=== PATIENT | male | born 1950 | race Caucasian/White ===

== ENCOUNTER 2022-08-09 08:21 | Inpatient (IN) | payer MEDICARE, SELFPAY ==
[2022-08-09] VITALS (50 sets, daily range): BP systolic 65–164; BP diastolic 53–114; PULSE 92–142; RESP 18–34; TEMP 36–37.8; O2SAT 93–100; BMI 27.6
--- NOTE | 2022-08-09 | ECHO_ITS ---
Patient Info Name: Eduardo Bear Age: 72 years : 1950 Gender: Male Ht: 72 in Wt: 180 lbs BSA: 2.04 m2 HR: 120 bpm BP: 130 / 68 mmHg Heart Rhythm: Sinus Rhythm Technical Quality: Poor Exam Date: 08/09/2022 3:20 PM Exam Location: [facility] Pulmonary Exam Room: ICU6 Patient Status: Inpatient Admit Date: 08/09/2022 Staff Ordering Physician: Fady Jackson MD Bottom Precipitator Operator: Marli Grant RDCS Attending Provider: Radha Crowe MD Referring Physician: Manuel ECHEVARRIA; Exam Type: CA echo dop color flow w con Study Info Indications - CHEST PAIN Complete two-dimensional, color flow and Doppler transthoracic echocardiogram is performed with contrast to opacify the left ventricle and to improve the deliniation of the left ventricle endocardial borders. Contrast/Agitated Saline Contrast/Ag. Saline: Definity Amount: 2.00 ml Administered By: Marli Grant [facility] Existing IV Access: Yes IV Access Condition: patent with no signs of infiltration Reason for Poor Study: patient body habitus Summary 1. Technically challenging examination in this intubated patient. 2. Definity contrast injected to improve visualization. 3. Hyperdynamic appearing left ventricular systolic function with grade 1 diastolic noncompliance. 4. No significant valvular dysfunction identified. Left Ventricle Left ventricular chamber dimension is normal. Left ventricular systolic function is hyperdynamic, estimated at >70%. The left ventricular diastolic function is grade I diastolic dysfunction. Right Ventricle Right ventricular chamber dimension is normal. Left Atria Left atrial chamber dimension is normal. Right Atria Right atrial chamber dimension is not well visualized. Aortic Valve The aortic valve is normal. Pulmonic Valve The pulmonic valve is not well visualized. Mitral Valve The mitral valve has normal leaflets. There is no mitral valve regurgitation. Tricuspid Valve The tricuspid valve leaflets are not well visualized. Pericardium/Pleural The pericardium appears normal. Aorta The aortic root size at the sinus of Valsalva is normal. Pulmonic Valve Name Value Normal RVOT Doppler RVOT Peak Gradient 4 mmHg PV Doppler PV Peak Gradient 7 mmHg Mitral Valve Name Value Normal MV Doppler MV Decel Hernando 247.24 cm/s2 MV PHT 0 s MV Area (PHT) 4.74 cm2 4.00-5.00 MV Diastolic Function MV E Peak Velocity 39.53 cm/s MV A Peak Velocity 60.78 cm/s MV E/A 0.65 MV Decel Time 0 s Tricuspid Valve Name Value
--- NOTE | ~2022-08-09 | XR_ITS ---
EXAMINATION: XR chest 1V portable DATE: 08/15/2022 22:15 INDICATION: Aspiration. TECHNIQUE: A single frontal view of the chest was obtained on 2 radiographs. COMPARISON: Chest single view 08/14/2022 FINDINGS: There are lucencies in the lungs, consistent with emphysema. No pleural effusion or pneumot horax. The heart size is normal. There are old healed left rib fractures. The endotracheal tube tip i s 6.5 cm above the tessa. The nasogastric tube tip is beyond the inferior margin of the radiograph, but at least to the stomach. IMPRESSION: 1. Emphysema. Reviewed, dictated and finalized at location E. IMPRESSION: 1. Emphysema.
--- NOTE | ~2022-08-09 | XR_ITS ---
Portable chest x-ray Comparison: 08/18/2022 Clinical History: Respiratory failure Findings: Endotracheal tube and NG tube are in satisfactory positions. There is COPD pattern. Mild i nterstitial prominence is similar to prior exam. Cardiomediastinal silhouette is stable. Bones and s oft tissues are unremarkable. Impression: Stable COPD and probable associated mild residual prominence. Correlate for mild pulmonary edema or i nfection. Support tubes, as above. Reviewed, dictated and finalized at location M. Impression: Stable COPD and probable associated mild residual prominence. Correlate for mil d pulmonary edema or infection. Support tubes, as above.
--- NOTE | ~2022-08-09 | XR_ITS ---
XR chest 1V portable 08/18/2022 05:43 Indication: Respiratory failure. Procedure: AP portable chest Comparison: Comparison to multiple prior studies sequentially, with oldest reviewed study dated 08/16. Findings: Endotracheal tube tip approximately 5 cm above the tessa. NG tube in the stomach. Heart si ze normal. Mild interstitial edema. The lungs are hyperinflated which is consistent with, but not milton gnostic of chronic obstructive pulmonary disease. No pneumothorax. Impression: 1: Mild interstitial edema. Reviewed, dictated and finalized at location A. Impression: 1: Mild interstitial edema.
--- NOTE | ~2022-08-09 | XR_ITS ---
EXAMINATION: XR chest ET placement DATE: 08/09/2022 15:16 INDICATION: Intubation. TECHNIQUE: A single frontal view of the chest was obtained. COMPARISON: Chest single view 08/09/2022 FINDINGS: There are lucencies in the lungs, consistent with emphysema. A calcified right lung nodule is consistent with old granulomatous disease. No pleural effusion or pneumothorax. The heart size is normal. There are multiple old healed left rib fractures. The endotracheal tube tip is 7.3 cm is abov e the tessa. The nasogastric tube tip is beyond the inferior margin of the radiograph, but at least to the stomach. IMPRESSION: 1. Emphysema. Reviewed, dictated and finalized at location A. IMPRESSION: 1. Emphysema.
--- NOTE | ~2022-08-09 | XR_ITS ---
Portable chest x-ray Comparison: 08/19/2022 Clinical History: Respiratory failure Findings: Endotracheal tube and NG tube remain in place. There is probable COPD. No consolidation or pleural effusion. Cardiomediastinal silhouette is stable. Bones and soft tissues are unremarkable. Impression: COPD. Support tubes, as above. Reviewed, dictated and finalized at location . Impression: COPD. Support tubes, as above.
--- NOTE | ~2022-08-09 | XR_ITS ---
Portable chest x-ray Comparison: 08/22/2022 Clinical History: Respiratory failure Findings: Endotracheal tube and left-sided PICC line are in satisfactory positions. COPD pattern of the lungs present. Cardiomediastinal silhouette is stable. Bones and soft tissues are unremarkable. Impression: COPD. Support tubes, as above. Reviewed, dictated and finalized at location . Impression: COPD. Support tubes, as above.
--- NOTE | ~2022-08-09 | XR_ITS ---
Portable chest x-ray Comparison: 08/13/2022 Clinical History: Respiratory failure Findings: Endotracheal tube and NG tube remain in place. COPD pattern of the lungs present. No conso lidation or pleural effusion. Cardiomediastinal silhouette is stable. Bones and soft tissues are unr emarkable. Impression: COPD. Support tubes, as above. Reviewed, dictated and finalized at location . Impression: COPD. Support tubes, as above.
--- NOTE | ~2022-08-09 | XR_ITS ---
EXAMINATION: XR chest 1V portable DATE: 08/11/2022 06:07 INDICATION: Intubated. TECHNIQUE: A single frontal view of the chest was obtained. COMPARISON: Chest single view 08/10/2022 FINDINGS: There are lucencies in the lungs, consistent with emphysema. A calcified right lung nodule and calcified right hilar lymph nodes are consistent with old granulomatous disease. No pleural effus ion or pneumothorax. The heart size is normal. The endotracheal tube tip is 8.7 cm above the tessa. Nasogastric tube tip is in the stomach. There are old healed left rib fractures. IMPRESSION: 1. Emphysema. Reviewed, dictated and finalized at location A. IMPRESSION: 1. Emphysema.
--- NOTE | ~2022-08-09 | XR_ITS ---
EXAMINATION: XR chest 1V portable Exam Date/Time: 08/14/2022 20:25 CDT HISTORY: Pneumothorax Comparison: 08/14/2022 at 5:40 AM. RESULT: Lines, tubes, and devices: Subdiaphragmatic nasogastric tube. Endotracheal tube terminates 5.3 cm ab ove the tessa. Lungs and pleura: Senescent/emphysematous changes. Otherwise clear. No pneumothorax. Cardiomediastinal silhouette: Stable. Other: No acute osseous or upper abdominal finding. IMPRESSION: Stable endotracheal and nasogastric tubes. No acute pulmonary process. Reviewed, dictated and finalized at location K.
--- NOTE | ~2022-08-09 | XR_ITS ---
Portable chest x-ray Comparison: 08/12/2022 Clinical History: Tube placement Findings: Endotracheal tube and NG tube are in satisfactory positions. COPD pattern of the lungs pre sent. No focal consolidation or pleural effusion. Cardiomediastinal silhouette is stable. Bones and soft tissues are unremarkable. Impression: COPD. Support tubes, as above. Reviewed, dictated and finalized at location . Impression: COPD. Support tubes, as above.
--- NOTE | ~2022-08-09 | XR_ITS ---
EXAMINATION: XR chest 1V portable INDICATION: Respiratory failure TECHNIQUE: Portable AP chest at 0804 hours COMPARISON: 08/23/2022 FINDINGS: The endotracheal tube has been removed and a tracheostomy has been inserted in expected pos ition. A left upper extremity PICC ends with its tip in the distal superior vena cava. No pleural eff usion or pneumothorax. The cardiomediastinal silhouette is stable. The lungs are hyperinflated but fr ee of acute opacities. A healed left rib fractures noted. IMPRESSION: 1. No acute cardiopulmonary abnormality. Endotracheal tube replaced with tracheostomy. Reviewed, dictated and finalized at location A. IMPRESSION: 1. No acute cardiopulmonary abnormality. Endotracheal tube replaced with trache ostomy.
--- NOTE | ~2022-08-09 | XR_ITS ---
XR chest 1V portable 08/17/2022 05:57 Indication: Respiratory failure Procedure: AP portable chest Comparison: Comparison to multiple prior studies sequentially, with oldest reviewed study dated 08/14. Findings: Endotracheal tube tip 6.1 cm above the tessa. NG tube passes into the stomach. Heart size normal. No focal air space disease, pulmonary edema, pleural effusion or suspected pneumothorax. The lungs are hyperinflated which is consistent with, but not diagnostic of chronic obstructive pulmonary disease. Impression: 1: No acute cardiopulmonary disease. Reviewed, dictated and finalized at location A. Impression: 1: No acute cardiopulmonary disease.
--- NOTE | ~2022-08-09 | XR_ITS ---
Portable chest x-ray Comparison: 08/20/2022 Clinical History: Respiratory failure Findings: Endotracheal tube, NG tube, and left-sided PICC line are in satisfactory positions. Possib le COPD. No focal consolidation or pleural effusion. Cardiomediastinal silhouette is stable. Bones a nd soft tissues are unremarkable. Impression: Support tubes, as above. COPD. Reviewed, dictated and finalized at location . Impression: Support tubes, as above. COPD.
--- NOTE | ~2022-08-09 | XR_ITS ---
EXAMINATION: XR chest ET placement DATE: 08/16/2022 16:47 INDICATION: Intubation. TECHNIQUE: A single frontal view of the chest was obtained. COMPARISON: Chest single view at 5:16 AM FINDINGS: There are lucencies in the lungs, consistent with emphysema. A calcified right lung nodule is consistent with old granulomatous disease. No pleural effusion or pneumothorax. The heart size is normal. The endotracheal tube tip is 6.0 cm above the tessa. The nasogastric tube tip is beyond the inferior margin of the radiograph, but at least to the stomach. There are old healed left rib fractur es. IMPRESSION: 1. Emphysema. Reviewed, dictated and finalized at location E. IMPRESSION: 1. Emphysema.
--- NOTE | ~2022-08-09 | XR_ITS ---
EXAMINATION: XR abdomen NG/feed tube rechec DATE: 08/15/2022 22:15 INDICATION: Nasogastric tube placement. TECHNIQUE: A semiupright view of the abdomen was obtained. COMPARISON: None. FINDINGS: The lower abdomen is excluded. There are no dilated loops of bowel. The nasogastric tube ti p is in the stomach. There are old healed left rib fractures. There are surgical clips in the abdomen . IMPRESSION: 1. Nasogastric tube tip in the stomach. Reviewed, dictated and finalized at location E.
--- NOTE | ~2022-08-09 | XR_ITS ---
Portable chest x-ray Comparison: 08/15/2022 Clinical History: Respiratory failure Findings: Endotracheal tube and NG tube are in place. COPD pattern of the lungs present. Cardiomedi astinal silhouette is stable. Bones and soft tissues are unremarkable. Impression: COPD. Support tubes, as above. Reviewed, dictated and finalized at location . Impression: COPD. Support tubes, as above.
--- NOTE | ~2022-08-09 | XR_ITS ---
EXAMINATION: XR chest 1V portable Exam Date/Time: 08/12/2022 18:52 CDT HISTORY: Desaturating, accessory muscle use Comparison: Same date at 5:12 AM. RESULT: Lines, tubes, and devices: Endotracheal tube terminates 7 cm above the tessa. Subdiaphragmatic NG t ube. Lungs and pleura: Senescent and emphysematous change. Mild bilateral costophrenic angle blunting. Cardiomediastinal silhouette: Stable. Other: No acute osseous or upper abdominal finding. IMPRESSION: High positioned endotracheal tube, consider advancing 3 cm. Subdiaphragmatic NG tube. Small bilateral effusions versus chronic pleural scarring. Reviewed, dictated and finalized at location K.
--- NOTE | ~2022-08-09 | CT_ITS ---
Non-contrast Head CT History: Abnormal body movements Technique: Axial non-contrast imaging of the brain was performed. Dose reduction technique was used on this scan by utilizing automated exposure control and iterative reconstruction technique. The dose -length product (DLP) was 756.67 mGy-cm. Findings: There is no evidence of intracranial hemorrhage, mass lesion, or acute infarct. Brain par enchyma appears normal. The ventricles and subarachnoid spaces are normal in size. The calvarium ap pears normal. Mild sinus disease is present.. Impression: No intracranial abnormality seen. Mild sinus disease. Reviewed, dictated and finalized at location . Impression: No intracranial abnormality seen. Mild sinus disease.
--- NOTE | ~2022-08-09 | XR_ITS ---
EXAMINATION: XR abdomen obstructive series DATE: 08/11/2022 08:37 INDICATION: Abdominal distention. TECHNIQUE: Upright and supine views of the abdomen on 3 radiographs were obtained. COMPARISON: Abdomen radiograph 08/09/2022 FINDINGS: There are no dilated loops of bowel. There is a large volume of stool in the colon. No free intraperitoneal gas. Catheters overlie the pelvis. There is a right groin central venous catheter. T here are surgical clips in left abdomen. The nasogastric tube tip is in the stomach. There are old he aled left rib fractures. IMPRESSION: 1. Nonobstructive bowel gas pattern. Reviewed, dictated and finalized at location A.
--- NOTE | ~2022-08-09 | XR_ITS ---
EXAMINATION: XR chest 1V portable DATE: 08/10/2022 14:51 INDICATION: Intubated. TECHNIQUE: A single frontal view of the chest was obtained on 2 radiographs. COMPARISON: Chest single view 08/10/2022 at 5:11 AM FINDINGS: There are lucencies in the lungs, consistent with emphysema. No pleural effusion or pneumot horax. The heart size is normal. There are old healed left rib fractures. The endotracheal tube tip i s 6.2 cm above the tessa. The nasogastric tube tip is beyond the inferior margin of the radiograph, but at least to the stomach. IMPRESSION: 1. Emphysema. Reviewed, dictated and finalized at location A. IMPRESSION: 1. Emphysema.
--- NOTE | ~2022-08-09 | XR_ITS ---
EXAMINATION: XR abdomen NG/feed tube insert DATE: 08/09/2022 15:16 INDICATION: Nasogastric tube placement. TECHNIQUE: A single view of the abdomen was obtained. COMPARISON: None. FINDINGS: The lower abdomen and right lateral aspect of the abdomen are excluded. There are no dilate d loops of bowel. There are surgical clips in the abdomen. The nasogastric tube tip is in the stomach . IMPRESSION: 1. Nasogastric tube tip in the stomach. Reviewed, dictated and finalized at location A.
--- NOTE | ~2022-08-09 | XR_ITS ---
EXAMINATION: XR chest 1V portable DATE: 08/10/2022 07:16 INDICATION: Acute on chronic respiratory failure. TECHNIQUE: A single frontal view of the chest was obtained. COMPARISON: Chest single view 08/09/2022 FINDINGS: There are lucencies in the lungs, consistent with emphysema. No pneumonia, pleural effusion , or pneumothorax. The heart size is normal. The endotracheal tube tip is 7.0 cm above the tessa. Th e nasogastric tube tip is beyond the inferior margin of the radiograph, but at least to the stomach. IMPRESSION: 1. Emphysema. Reviewed, dictated and finalized at location A. IMPRESSION: 1. Emphysema.
--- NOTE | ~2022-08-09 | XR_ITS ---
Portable chest x-ray Comparison: None Clinical History: Shortness of breath Findings: Mild diffuse interstitial prominence the lungs is noted. No focal consolidation, pleural e ffusion, or pneumothorax. Cardiomediastinal silhouette is unremarkable. Degenerative change of the r ight glenohumeral joint noted. Impression: Mild diffuse interstitial prominence. This is probably most likely related to COPD, but other chronic interstitial disease or interstitial edema/infection are potential alternative considerations. Corre late clinically. Reviewed, dictated and finalized at location . Impression: Mild diffuse interstitial prominence. This is probably most likely related to C OPD, but other chronic interstitial disease or interstitial edema/infection are potential alternative considerations. Correlate clinically.
--- NOTE | ~2022-08-09 | XR_ITS ---
Portable chest x-ray Comparison: 08/21/2022 Clinical History: Respiratory failure Findings: Endotracheal tube, NG tube, and left-sided PICC line are in satisfactory positions. COPD p attern of the lungs present. No consolidation or pleural effusion. Cardiomediastinal silhouette is s table. Bones and soft tissues are unremarkable. Impression: COPD. Support tubes, as above. Reviewed, dictated and finalized at location . Impression: COPD. Support tubes, as above.
--- NOTE | ~2022-08-09 | XR_ITS ---
EXAMINATION: XR chest 1V portable DATE: 08/12/2022 05:57 INDICATION: Intubated. TECHNIQUE: A single frontal view of the chest was obtained. COMPARISON: Chest single view 08/11/2022 FINDINGS: There are lucencies in the lungs, consistent with emphysema. No pleural effusion or pneumot horax. The heart size is normal. There are old healed left rib fractures. The endotracheal tube tip i s 6.3 cm above the tessa. The nasogastric tube tip is beyond the inferior margin of the radiograph, but at least to the stomach. IMPRESSION: 1. Emphysema. Reviewed, dictated and finalized at location A. IMPRESSION: 1. Emphysema.
--- NOTE | 2022-08-09 08:38 | ECG_ITS ---
Measurements Intervals [place] Rate: 144 P: NV: 0 QRS: 75 QRSD: 80 T: 79 QT: 265 QTc: 411 Interpretive Statements SINUS OR ECTOPIC ATRIAL TACHYCARDIA ATRIAL PREMATURE COMPLEX BASELINE ARTIFACT- I, II, III, AVR, AVL, AVF, V1-V6 ABNORMAL ECG NO PREVIOUS ECG AVAILABLE FOR COMPARISON Electronically Signed On 08-09-2022 10:05:14 CDT by Rogelio Valdivia D.O.
[2022-08-09 09:26] LABS: Glucose Point of Care 141 mg/dl (65-105)
--- NOTE | 2022-08-09 09:42 | ADMGEN ---
This patient, Eduardo Bear, was admitted to 3 [facility] Surg Room 326-01. Patient/family oriented to hospital policies and general routines including ID bracelet, bed and alarms, visiting hours, pain management, procedures, bathroom and other care routines, personal items, smoking policy, room service/diet, and visiting hours. Information on how to activate the Rapid Response Team has been discussed. Patient/Family are encouraged to report perceived risks to care and to ask questions if they do not understand what they are told or what they should do.
[2022-08-09 09:44] LABS: Hematocrit 35.2 % (42.0-52.0); Hemoglobin 9.7 g/dL (14.0-18.0); Mean Corpuscular HGB Conc 27.6 g/dl (32-36); Mean Corpuscular Hemoglobin 21.3 pg (26-34); Mean Corpuscular Volume 77.4 fl (80-100); Mean Platelet Volume 8.1 fl (7.4-10.4); Platelet Count Result 445 k/mm3 (150-375); Red Blood Count 4.55 M/mm3 (4.6-6.20); Red Cell Distribution Width 18.6 % (11.5-14.5); White Blood Count 14.4 K/mm3 (4.5-10.0)
[2022-08-09 09:57] LABS: Alveolar/Arterial O2 Gradient 103.5 mmHg; Base Excess ABG 5.5 mEq/l (+/-2.0); Fractional Inspired Oxygen 36 %; Oxygen Content ABG 13.3 %vol (16.0-22.0); Oxygen Saturation ABG 90.2 % (95.0-100.0); Oxyhemoglobin 89.8 % THb (90.0-100.0); PO2 ABG 67.3 mmHg (80.0-100.0); PO2 FiO2 Ratio Arterial Blood 1.87 %; Total Hemoglobin 10.5 g/dL (12.0-18.0)
[2022-08-09 09:58] LABS: Alanine Aminotransferase 19 U/L (6-50); Albumin Level 4.9 g/dL (3.5-5.1); Alkaline Phosphatase 81 U/L (38-126); Anion Gap 11 mmol/L (8-16); Aspartate Amino Transferase 28 U/L (17-59); Bilirubin,Total 0.8 mg/dL (0.2-1.3); Blood Urea Nitrogen 12 mg/dL (9-20); Calcium 8.9 mg/dL (8.4-10.2); Carbon Dioxide 37 mmol/L (22-30); Chloride 87 mmol/L (98-107); Estimated Glomerular Filt Rate > 60; Glucose 144 mg/dL (65-110); Potassium 4.1 mmol/L (3.4-5.0); Sodium 135 mmol/L (137-145)
[2022-08-09 09:59] LABS: Device NASAL CANNULA; Modified Allen's Test Pass; Site Drawn LEFT RADIAL
[2022-08-09] MEDS: METOPROLOL TARTRATE INJ 5 MG/5 ML VIAL IV PUSH ×2 (10:02→15:29)
[2022-08-09 10:13] LABS: NT Pro B Type Natriuretic Pept 313 pg/mL (19.9-100); Troponin I 0.015 ng/mL (0.000-0.034)
[2022-08-09 10:15] LABS: Procalcitonin 0.2 ng/mL
[2022-08-09 10:38] LABS: Appearance Urine Cloudy (Clear); Bacteria Urine 4+ /hpf; Bilirubin Urine Negative (Negative); Blood Urine Trace (Negative); Color Urine Yellow (Yellow); Glucose Urine UA Negative (Negative); Ketones Urine 1+ mg/dL (Negative); Leukocyte Esterase Ur 3+ LEU/UL (Negative); Nitrate Urine Positive (Negative); Protein Urine Negative (Negative); RBC Urine 0-2 /hpf (0-2); Specific Grav Ur 1.009 (1.001-1.035); Squamous Epithelial Cell Urine None seen /hpf (Few); Urobilinogen Urine 0.2 mg/dL (<2.0); pH Urine 7.5 (5.0-9.0)
[2022-08-09 10:45] LABS: Add Urine Microscopic? YES
--- NOTE | 2022-08-09 11:05 | PC.NURSE ---
Called to inform Sarahi (patient's daughter in law) of patients transfer to IMU room 210. Answered all questions.
[2022-08-09 11:43] LABS: Alveolar/Arterial O2 Gradient 60.3 mmHg; Base Excess ABG 6.2 mEq/l (+/-2.0); Carboxyhemoglobin 0.2 % THb (0-2.0); Fractional Inspired Oxygen 30 %; HCO3 ABG 34.4 mEq/l (22.0-26.0); Methemoglobin ABG 0.3 %THb (0-1.5); Oxygen Content ABG 13.6 %vol (16.0-22.0); Oxygen Saturation ABG 91.3 % (95.0-100.0); PO2 ABG 69.2 mmHg (80.0-100.0); PO2 FiO2 Ratio Arterial Blood 2.31 %; Reduced Hemoglobin 7.5 %THb (0-5.0); Total Hemoglobin 10.5 g/dL (12.0-18.0)
[2022-08-09 11:45] LABS: Device NON-INVASIVE VENT; Modified Allen's Test Pass; PCO2 ABG 71.8 mmHg (35.0-45.0); Site Drawn LEFT RADIAL; pH ABG 7.298 (7.350-7.450)
--- NOTE | 2022-08-09 11:46 | PM.IMHP ---
H&P: HPI History of Present Illness Date/Time: 08/09/22 11:46 Chief Complaint: Limited information on this patient. According to the patient he lives near [place]. He is very tachypneic and having some significant shortness of breath and unable to answer long winded questions. Reports that several days ago he acutely got worse with respect to his breathing. He denies any chest pain. Denies any palpitations. Past smoker. Review of Systems Review of Systems: Ten point review of systems negative except as stated in HPI. [facility] Social History Social History Smoking packs per day: 0.25 Smoking cigarettes per day: 5.0 Smoking status: Former smoker Tobacco type: cigarettes Smoking end date: 09/26/16 Alcohol intake: current Substance use: current Substance use type: painkillers Spiritual care concerns: No Meds Home Medications and Allergies Home Medications Medication Instructions Recorded Confirmed Type Chlor-Trimeton 4 mg PO BID 08/09/22 08/09/22 History apixaban 5 mg tablet (Eliquis) 5 mg PO BID 08/09/22 08/09/22 History azithromycin 250 mg tablet 250 mg PO EVERY OTHER DAY 08/09/22 08/09/22 History budesonide 0.5 mg/2 mL suspension 0.5 mg inhalation BID 08/09/22 08/09/22 History for nebulization docusate sodium 1 cap PO BID 08/09/22 08/09/22 History hydrochlorothiazide 25 mg tablet 25 mg PO DAILY 08/09/22 08/09/22 History hydrocodone 10 mg-acetaminophen 1 tablet PO PRN pain 08/09/22 08/09/22 History 325 mg tablet lidocaine HCl 2 % mucosal jelly in 1 applic topical PRN Pain 08/09/22 08/09/22 History applicator lorazepam 1 mg tablet 1 mg PO TID 08/09/22 08/09/22 History melatonin 3 mg PO QHS 08/09/22 08/09/22 History metoprolol succinate 50 mg 50 mg PO DAILY 08/09/22 08/09/22 History tablet,extended release 24 hr morphine 15 mg tablet,extended 15 mg PO BID 08/09/22 08/09/22 History release pantoprazole 40 mg tablet,delayed 40 mg PO DAILY 08/09/22 08/09/22 History release prednisone 10 mg tablet 10 mg PO QAM 08/09/22 08/09/22 History Allergies Allergy/AdvReac Type Severity Reaction Status Date / Time albuterol AdvReac Palpitation Verified 08/09/22 09:14 s BCG (Bacillus AdvReac Unconscious Verified 08/09/22 09:14 [place]-Deonte) vacc enoxaparin [From Lovenox] AdvReac Other Verified 08/09/22 09:14 heparin AdvReac Other Verified 08/09/22 09:14 ipratropium AdvReac Palpitation Verified 08/09/22 09:14 s ketorolac [From Toradol] AdvReac Nausea and Verified 08/09/22 09:14 Vomiting promethazine AdvReac Confusion Verified 08/09/22 09:14 Vital Signs Vital Signs - 24 hr 08/09/22 09:23 08/09/22 10:02 08/09/22 10:15 Temperature 96.8 F L Pulse Rate 137 H 142 H 114 H Respiratory Rate 24 H 34 H Blood Pressure 160/79 H Pulse Oximetry 100 96 Oxygen Delivery BiPAP Exam Narrative: General: Frail Psych: appropriate mood nad affect Eyes: PERRLA Neck: Trachea midline, no new lesions Skin: no changes Lungs: Diminished, Cardiac: Normal S1,S2, no MGR ABD: soft, nd, nt, nbs Ext: no new lesions, no cce Vasc: Pulses intact H&P: Results Labs Labs: Short CBC 08/09/22 Range/Units 09:36 WBC 14.4 H (4.5-10.0) K/mm3 Hgb 9.7 L (14.0-18.0) g/dL Hct 35.2 L (42.0-52.0) % Plt Count 445 H (150-375) k/mm3 BMP 08/09/22 09:36 Sodium 135 L Potassium 4.1 Chloride 87 L Carbon Dioxide 37 H BUN 12 Creatinine 0.80 Glucose 144 H Calcium 8.9 Cardiac Enzymes 08/09/22 Range/Units 09:36 Troponin I 0.015 (0.000-0.034) ng/mL Liver Function 08/09/22 Range/Units 09:36 Total Bilirubin 0.8 (0.2-1.3) mg/dL AST 28 (17-59) U/L ALT 19 (6-50) U/L Alkaline Phosphatase 81 (38-126) U/L Albumin 4.9 (3.5-5.1) g/dL Urine 08/09/22 Range/Units 10:08 Urine Color Yellow (Yellow) Urine Appearance Cloudy H (
[2022-08-09 11:47] LABS: Non-Invasive Expiratory Pressure 5 CMH2O; Non-Invasive Inspiratory Pressure 15 CMH2O; Non-Invasive Vent Rate 4 /MIN
[2022-08-09] MEDS: LEVALBUTEROL NEB 1.25 MG/3 ML 5 MG INHALATION (12:05)
[2022-08-09 12:23] LABS: Glucose Point of Care 154 mg/dl (65-105)
[2022-08-09] MEDS: CEFEPIME 2 GM/NS 50 ML 2 GM/50 ML BAG IVPB ×2 (12:25→20:26)
[2022-08-09] MEDS: FUROSEMIDE INJ 40 MG/4 ML VIAL IV PUSH (12:33)
[2022-08-09] MEDS: methylPREDNISolone SOD SUCC 125 MG VIAL IV PUSH (12:33)
--- NOTE | 2022-08-09 12:51 | WPDCNINT ---
Assessment and Plan Assessment and plan (1) Chest pain: Qualifiers: Chest pain type: unspecified Qualified Code(s): R07.9 - Chest pain, unspecified Code(s): R07.9 - Chest pain, unspecified Status: Acute Assessment and Plan: Patient presented with chest pain in the outside hospital associated with shortness of breath, diaphoresis, nausea. -EKG at the outside hospital and at [facility] showed atrial flutter/fib with RVR -troponin x1 is negative, will trend troponins -off note patient had stress test in March 2019 that was unremarkable which was obtained from the ER note from the outside hospital (2) Respiratory failure: Qualifiers: Chronicity: acute on chronic Respiratory failure complication: hypercapnia Qualified Code(s): J96.22 - Acute and chronic respiratory failure with hypercapnia Code(s): J96.90 - Respiratory failure, unspecified, unspecified whether with hypoxia or hypercapnia Status: Acute Assessment and Plan: Acute on chronic hypercapnic respiratory failure likely related to COPD, possible volume overload, possible pneumonia patient has cough, shortness of breath, leukocytosis -patient placed on BiPAP, currently on 24/8, 30% FiO2 and a rate of 18 -will repeat ABGs -started patient on bronchodilators and budesonide -placed patient on Solu-Medrol -if repeat ABGs do not improve, patient will likely be intubated -started patient on cefepime, azithromycin and vancomycin (08/09) -blood and urine cultures have been obtained, - (3) COPD (chronic obstructive pulmonary disease): Qualifiers: COPD type: COPD with acute exacerbation Qualified Code(s): J44.1 - Chronic obstructive pulmonary disease with (acute) exacerbation Code(s): J44.9 - Chronic obstructive pulmonary disease, unspecified Status: Acute Assessment and Plan: Continue BiPAP, steroids, antibiotics (4) Urinary tract infection: Qualifiers: Urinary tract infection type: acute cystitis Hematuria presence: without hematuria Qualified Code(s): N30.00 - Acute cystitis without hematuria Code(s): N39.0 - Urinary tract infection, site not specified Status: Acute Assessment and Plan: UA reflective of UTI -continue antibiotics as above -urine and blood cultures have been obtained and pending (5) Afib: Qualifiers: Atrial fibrillation type: paroxysmal Qualified Code(s): I48.0 - Paroxysmal atrial fibrillation Code(s): I48.91 - Unspecified atrial fibrillation Status: Acute Assessment and Plan: Patient also has paroxysmal AFib, on apixaban at home which we will continue -ordered metoprolol p.r.n. (6) CKD (chronic kidney disease) stage 3, GFR 30-59 ml/min: Code(s): N18.30 - Chronic kidney disease, stage 3 unspecified Status: Acute Assessment and Plan: Patient has history of chronic kidney disease stage 3 -continue to monitor urine output, renal function and electrolytes (7) Chronic pain disorder: Code(s): G89.4 - Chronic pain syndrome Status: Acute Assessment and Plan: History of chronic pain syndrome on chronic opiates, this could be the cause of hypercapnic respiratory failure (8) GERD (gastroesophageal reflux disease): Qualifiers: Esophagitis presence: esophagitis presence not specified Qualified Code(s): K21.9 - Gastro-esophageal reflux disease without esophagitis Code(s): K21.9 - Gastro-esophageal reflux disease without esophagitis Status: Acute Assessment and Plan: Continue Protonix Plan DVT prophylaxis: Apixaban Stress ulcer prophylaxis: Protonix Nutrition: NPO for now Code Status: Full code Critical Care Time Spent: 51 minutes Due to a high probability of clinically significant, life threatening deterioration, the patient required my highest level of preparedness to intervene emergently and I personally spent this critical
[2022-08-09] MEDS: BUDESONIDE RESPULE NEB 0.5 MG/2 ML AMP INHALATION ×2 (13:10→20:33)
[2022-08-09] MEDS: LEVALBUTEROL NEB 1.25 MG/3 ML INHALATION ×2 (13:10→20:33)
[2022-08-09 13:28] LABS: INR 1.1; Prothrombin Time 14.7 Seconds (11.1-14.7)
[2022-08-09 13:34] LABS: Lactic Acid Reflex 1.6 mmol/L (0.7-2.0)
[2022-08-09 13:37] LABS: Influenza A QL RT-PCR Negative (Negative); Influenza B QL RT-PCR Negative (Negative); SARS-CoV-2 RNA PCR Negative (Negative)
[2022-08-09 13:46] LABS: Troponin I 0.026 ng/mL (0.000-0.034)
--- NOTE | 2022-08-09 13:53 | PM.CNCAR ---
Assessment and Plan Assessment and plan (1) Afib: Qualifiers: Atrial fibrillation type: paroxysmal Qualified Code(s): I48.0 - Paroxysmal atrial fibrillation <SURYA Waller - Last Filed: 08/09/22 17:36> Code(s): I48.91 - Unspecified atrial fibrillation <SURYA Waller - Last Filed: 08/09/22 17:36> Status: Acute <SURYA Waller - Last Filed: 08/09/22 17:36> Assessment and Plan: history of paroxysmal atrial fibrillation. He reportedly had atrial flutter with rapid ventricular response at outside hospital. At this point, he is back in sinus rhythm. Continue metoprolol as blood pressure allows. Continue systemic anticoagulation with apixaban. Cardiology will follow along on an as-needed basis. Please do not hesitate to call with questions. <SURYA Waller - Last Filed: 08/09/22 17:36> (2) Respiratory failure: Qualifiers: Chronicity: acute on chronic Respiratory failure complication: hypercapnia Qualified Code(s): J96.22 - Acute and chronic respiratory failure with hypercapnia <SURYA Waller - Last Filed: 08/09/22 17:36> Code(s): J96.90 - Respiratory failure, unspecified, unspecified whether with hypoxia or hypercapnia <SURYA Waller - Last Filed: 08/09/22 17:36> Status: Acute <SURYA Waller - Last Filed: 08/09/22 17:36> Assessment and Plan: Secondary to COPD, possible pneumonia. He has been placed on BiPAP. Management per Critical Care Service. <SURYA Waller - Last Filed: 08/09/22 17:36> Assessment and Plan: Attending addendum: I agree with the above documentation and plan of care as outlined. <Abdulaziz Loomis MD - Last Filed: 08/09/22 17:42> History of Present Illness History of Present Illness Consult date/time: 08/09/22 13:53 <SURYA Waller - Last Filed: 08/09/22 17:36> Requesting physician: Fady Jackson MD <SURYA Waller - Last Filed: 08/09/22 17:36> Consult reason: Other ( elevated heart rate ) <SURYA Waller - Last Filed: 08/09/22 17:36> Reason For Visit: Anemia <SURYA Waller - Last Filed: 08/09/22 17:36> Narrative: Eduardo Bear Is a 72-year-old male with paroxysmal atrial fibrillation. This is a patient who presented to an outside hospital on 08/09/2022 with complaints of shortness of breath, cough, and chest pain. According to documentation from the outside hospital he had an EKG that demonstrated atrial flutter with rapid ventricular response. The medical record here also indicates he had atrial fibrillation with rapid ventricular response. However, there is no EKG to confirm this. According to documentation, he was given IV metoprolol for heart rate control. At the time of my visit with the patient he is unable to provide any history or answer questions because of significant respiratory distress now on support with BiPAP. The above history obtained from outside hospital records and documentation from this hospitalization. Currently, patient is in sinus rhythm and is slightly tachycardic, heart rate 105-110 beats per minute. <SURYA Waller - Last Filed: 08/09/22 17:36> Review of Systems Review of Systems: ROS unobtainable: Yes unobtainable due to medical condition <SURYA Waller - Last Filed: 08/09/22 17:36> [facility] Social History Social History: Social History Smoking packs per day: 0.25 Smoking cigarettes per day: 5.0 Smoking status: Former smoker Tobacco type: cigarettes Smoking end date: 09/26/16 Alcohol intake: current Substance use: current Substance use type: painkillers Spiritual care concerns: No <SURYA Waller - Last Filed: 08/09/22 17:36> Meds Home Medications and Allergies Home medications: Home Medications Medication Instructions Recorded
--- NOTE | 2022-08-09 14:11 | WPDURCON ---
Assessment and Plan Assessment and plan (1) Respiratory failure: Qualifiers: Chronicity: acute on chronic Respiratory failure complication: hypercapnia Qualified Code(s): J96.22 - Acute and chronic respiratory failure with hypercapnia Code(s): J96.90 - Respiratory failure, unspecified, unspecified whether with hypoxia or hypercapnia Status: Acute (2) Afib: Qualifiers: Atrial fibrillation type: paroxysmal Qualified Code(s): I48.0 - Paroxysmal atrial fibrillation Code(s): I48.91 - Unspecified atrial fibrillation Status: Acute Assessment and Plan: 16 F Meza catheter placed at bedside without difficulty. I did not resistance suggestive of urethral stricture. Meza catheter can be removed at any time, when he is more ambulatory. Urology Consult Note HPI Date Seen: 08/09/22 Requesting Physician: Radha Crowe MD Primary Care Provider: Bipin Le, Consult Narrative Reason for consult: Placement of Meza catheter Narrative: Eduardo Bear is a 72 year old male admitted after presenting to the emergency department with acute shortness of breath and chest pain. He is found to have near respiratory failure and paroxysmal atrial fibrillation. There was 1 entry in our medical record indicates he may have remote history of bladder cancer cared for by urologist in [facility]. I no specifics on that. We are asked to see him for Meza catheter placement. Patient is unable to supply reliable history at this time. Review of Systems Review of Systems: ROS unobtainable: Yes unobtainable due to medical condition PMFSH Social History Social History Smoking packs per day: 0.25 Smoking cigarettes per day: 5.0 Smoking status: Former smoker Tobacco type: cigarettes Smoking end date: 09/26/16 Alcohol intake: current Substance use: current Substance use type: painkillers Spiritual care concerns: No Meds Home Medications and Allergies Home Medications Medication Instructions Recorded Confirmed Type Chlor-Trimeton 4 mg PO BID 08/09/22 08/09/22 History apixaban 5 mg tablet (Eliquis) 5 mg PO BID 08/09/22 08/09/22 History azithromycin 250 mg tablet 250 mg PO EVERY OTHER DAY 08/09/22 08/09/22 History budesonide 0.5 mg/2 mL suspension 0.5 mg inhalation BID 08/09/22 08/09/22 History for nebulization docusate sodium 1 cap PO BID 08/09/22 08/09/22 History hydrochlorothiazide 25 mg tablet 25 mg PO DAILY 08/09/22 08/09/22 History hydrocodone 10 mg-acetaminophen 1 tablet PO PRN pain 08/09/22 08/09/22 History 325 mg tablet lidocaine HCl 2 % mucosal jelly in 1 applic topical PRN Pain 08/09/22 08/09/22 History applicator lorazepam 1 mg tablet 1 mg PO TID 08/09/22 08/09/22 History melatonin 3 mg PO QHS 08/09/22 08/09/22 History metoprolol succinate 50 mg 50 mg PO DAILY 08/09/22 08/09/22 History tablet,extended release 24 hr morphine 15 mg tablet,extended 15 mg PO BID 08/09/22 08/09/22 History release pantoprazole 40 mg tablet,delayed 40 mg PO DAILY 08/09/22 08/09/22 History release prednisone 10 mg tablet 10 mg PO QAM 08/09/22 08/09/22 History Allergies Allergy/AdvReac Type Severity Reaction Status Date / Time albuterol AdvReac Palpitation Verified 08/09/22 09:14 s BCG (Bacillus AdvReac Unconscious Verified 08/09/22 09:14 [place]-Deonte) vacc enoxaparin [From Lovenox] AdvReac Other Verified 08/09/22 12:57 heparin AdvReac Other Verified 08/09/22 12:57 ipratropium AdvReac Palpitation Verified 08/09/22 09:14 s ketorolac [From Toradol] AdvReac Nausea and Verified 08/09/22 09:14 Vomiting promethazine AdvReac Confusion Verified 08/09/22 09:14 Vital Signs Vital Signs - 24 hr 08/09/22 09:23 08/09/22 10:02 08/09/22 10:15 Temperature 96.8 F L Pulse Rate 137 H 142 H 114 H Respiratory Rate 24 H 34 H Blood Pressure 160/79 H
[2022-08-09 14:35] LABS: Alveolar/Arterial O2 Gradient 61.3 mmHg; Base Excess ABG 5.7 mEq/l (+/-2.0); Fractional Inspired Oxygen 30 %; HCO3 ABG 33.6 mEq/l (22.0-26.0); Oxygen Content ABG 13.4 %vol (16.0-22.0); Oxyhemoglobin 92.7 % THb (90.0-100.0); PO2 ABG 70.9 mmHg (80.0-100.0); PO2 FiO2 Ratio Arterial Blood 2.36 %; Total Hemoglobin 10.2 g/dL (12.0-18.0); pH ABG 7.302 (7.350-7.450)
[2022-08-09 14:38] LABS: Device BIPAP; Modified Allen's Test Pass; PCO2 ABG 69.5 mmHg (35.0-45.0); Site Drawn RIGHT RADIAL
[2022-08-09] MEDS: ETOMIDATE 20 MG/10 ML AMPUL IV PUSH (14:51)
[2022-08-09] MEDS: ROCURONIUM BROMIDE 50 MG/5 ML VIAL IV PUSH (14:52)
--- NOTE | 2022-08-09 14:55 | WPDPROCEDUR ---
Procedures Intubation Intubation Date: 08/09/22 Intubation Time: 14:54 A pre-procedural Time-Out was completed immediately before starting the procedure and confirmed: Patient Identification, Site, Procedure, Patient Position and the Availability of Requisite Equipment: Yes Sedative: etomidate Paralytic: rocuronium Laryngoscope: fiber optic video scope Assist device used: fiber optic device ET tube size: 7.5 Tube secured depth (cm): 25 Tube secured location: lips Tube placement confirmation: visualized tube passing through cords, equal breath sounds bilaterally, no breath sounds over epigastrium and confirmation by capnometry Patient tolerated procedure: well Intubation complications: none
[2022-08-09] MEDS: PROPOFOL IV EMULSION 100 ML 2.4 MG IV CONT (15:00)
[2022-08-09] MEDS: PANTOPRAZOLE SODIUM IV 40 MG VIAL IV PUSH (15:15)
[2022-08-09] MEDS: PERFLUTREN LIPID MICROSPHERES 1.5 ML VIAL DILUTED TO 10 ML TOTAL VOLUME IV PUSH (16:00)
[2022-08-09 16:03] LABS: Alveolar/Arterial O2 Gradient 100.8 mmHg; Base Excess ABG 4.4 mEq/l (+/-2.0); Device VENTILATOR; Fractional Inspired Oxygen 40 %; HCO3 ABG 28.4 mEq/l (22.0-26.0); Modified Allen's Test Pass; Oxygen Content ABG 14.8 %vol (16.0-22.0); Oxygen Saturation ABG 98.9 % (95.0-100.0); Oxyhemoglobin 97.8 % THb (90.0-100.0); PCO2 ABG 40.3 mmHg (35.0-45.0); PO2 ABG 138.1 mmHg (80.0-100.0); PO2 FiO2 Ratio Arterial Blood 3.45 %; Site Drawn RIGHT RADIAL; Total Hemoglobin 10.6 g/dL (12.0-18.0); pH ABG 7.466 (7.350-7.450)
[2022-08-09 16:04] LABS: Arterial Blood Gas PEEP 5 cmH2O; Arterial Blood Gas Tidal Volume 500 ml; Arterial Blood Gas Vent Mode CMV; Arterial Blood Gas Ventilator rate 18 /MIN
[2022-08-09] MEDS: NOREPINEPHRINE 8 MG/D5W 250 ML 8 MG/250 ML BAG 9.38 MG IV CONT (16:07)
[2022-08-09 16:16] LABS: Triglycerides 179 mg/dL (<150)
[2022-08-09 16:22] LABS: Troponin I 0.031 ng/mL (0.000-0.034)
[2022-08-09] MEDS: MIDAZOLAM 100MG/NS 100ML(*CRX) 100 MG/100 ML BAG IV CONT (16:34)
[2022-08-09] MEDS: FENTANYL 2,500MCG/NS250ML(*CRX 2,500 MCG/250 ML BAG IV CONT (16:35)
[2022-08-09] MEDS: methylPREDNISolone SOD SUCC 125 MG VIAL 40 MG IV PUSH (18:54)
--- NOTE | 2022-08-09 19:03 | WPDPROCEDUR ---
Procedures Central Line Placement Right Femoral: Central Line Date: 08/09/22 Central Line Time: 18:00 Consent: I have discussed with the patient and/or surrogate, the non-emergent placement of a central venous catheter, including its clinical necessity/indication and associated potential risks and complications. The patient and/or surrogate understand(s) and acknowledge(s) the need to proceed with central venous catheter insertion as an important element of the patient's clinical management. Time Out Performed: Yes Patient Position: supine Patient placed on monitor/pulse ox: Yes Provider Prep: mask, sterile gown, sterile gloves, Max. sterile barrier precautions, cap and hand hygiene with conventional soap/water or alcohol based hand rub Central line prep: 2% Chlorhexidine scrub Local anesthesia used: lidocaine 1% Amount of anesthesia used (ml): 5 Sterile US Technique with sterile gel/sterile probe covers: Yes Central line lumen inserted: triple Azerbaijani: 7 Length (cm): 20 Post Procedure: sutured in place, good blood return, all ports aspirated, flushed, capped, transparent dressing, antimicrobial product and aseptic technique maintained throughout procedure Post procedure x-ray: other (n/a with femoral placement) Patient tolerated procedure: well Complications: none
[2022-08-09] MEDS: MINERAL OIL/WHITE PETROLATUM OINTMENT 1 APPLIC EACH EYE (20:27)
[2022-08-09] MEDS: CENTRAL LINE FLUSH 10 ML IV PUSH (20:27)
[2022-08-10] VITALS (49 sets, daily range): BP systolic 90–136; BP diastolic 54–98; PULSE 93–121; RESP 18–32; TEMP 37.3–37.9; O2SAT 91–100
[2022-08-10] MEDS: methylPREDNISolone SOD SUCC 125 MG VIAL 40 MG IV PUSH (00:14)
[2022-08-10 00:34] LABS: Glucose Point of Care 192 mg/dl (65-105)
[2022-08-10] MEDS: LEVALBUTEROL NEB 1.25 MG/3 ML INHALATION ×4 (02:37→20:33)
[2022-08-10] MEDS: CEFEPIME 2 GM/NS 50 ML 2 GM/50 ML BAG IVPB ×3 (04:49→21:05)
[2022-08-10 05:05] LABS: Basophils Percent Auto 0.1 % (0.2-1.2); Hematocrit 29.5 % (42.0-52.0); Hemoglobin 8.6 g/dL (14.0-18.0); Immature Granulocyte Absolute 0.05 K/mm3 (0.00-0.031); Immature Granulocyte Percent A 0.6 % (0-0.5); Lymphocytes Absolute Auto 0.33 K/mm3 (0.9-3.2); Mean Corpuscular HGB Conc 29.2 g/dl (32-36); Mean Corpuscular Hemoglobin 21.3 pg (26-34); Mean Platelet Volume 8.2 fl (7.4-10.4); Monocytes Absolute Auto 0.2 K/mm3 (0.1-0.6); Monocytes Percent Auto 2.7 % (2.6-8.5); Neutrophils Absolute Auto 7.6 K/mm3 (1.3-6.7); Neutrophils Percent Auto 92.6 % (45.5-73.1); Platelet Count Result 397 k/mm3 (150-375); Red Blood Count 4.04 M/mm3 (4.6-6.20); Red Cell Distribution Width 18.7 % (11.5-14.5); White Blood Count 8.3 K/mm3 (4.5-10.0)
[2022-08-10 05:17] LABS: Ammonia < 9 umol/L (9-30); Lactic Acid Reflex 2.1 mmol/L (0.7-2.0)
[2022-08-10 05:22] LABS: Alveolar/Arterial O2 Gradient 86.9 mmHg; Base Excess ABG 5.4 mEq/l (+/-2.0); Carboxyhemoglobin 0.3 % THb (0-2.0); Device VENTILATOR; Fractional Inspired Oxygen 30 %; HCO3 ABG 30.3 mEq/l (22.0-26.0); Methemoglobin ABG 0.2 %THb (0-1.5); Modified Allen's Test Pass; Oxygen Content ABG 13.6 %vol (16.0-22.0); Oxyhemoglobin 93.5 % THb (90.0-100.0); PCO2 ABG 46.1 mmHg (35.0-45.0); PO2 ABG 72.8 mmHg (80.0-100.0); PO2 FiO2 Ratio Arterial Blood 2.43 %; Site Drawn LEFT RADIAL; Total Hemoglobin 10.3 g/dL (12.0-18.0); pH ABG 7.436 (7.350-7.450)
[2022-08-10 05:23] LABS: Arterial Blood Gas PEEP 5 cmH2O; Arterial Blood Gas Tidal Volume 500 ml; Arterial Blood Gas Vent Mode CMV; Arterial Blood Gas Ventilator rate 18 /MIN
[2022-08-10 05:24] LABS: Alanine Aminotransferase 23 U/L (6-50); Albumin Level 4.4 g/dL (3.5-5.1); Alkaline Phosphatase 65 U/L (38-126); Anion Gap 13 mmol/L (8-16); Aspartate Amino Transferase 28 U/L (17-59); Bilirubin,Total 0.5 mg/dL (0.2-1.3); Blood Urea Nitrogen 28 mg/dL (9-20); Calcium 8.5 mg/dL (8.4-10.2); Carbon Dioxide 32 mmol/L (22-30); Chloride 87 mmol/L (98-107); Estimated CRCL calculation 33 ml/min; Estimated Glomerular Filt Rate 40; Glucose 181 mg/dL (65-110); Phosphorus 2.9 mg/dL (2.5-4.5); Sodium 132 mmol/L (137-145)
[2022-08-10] MEDS: CENTRAL LINE FLUSH 10 ML IV PUSH ×3 (05:43→21:06)
[2022-08-10] MEDS: FENTANYL 2,500MCG/NS250ML(*CRX 2,500 MCG/250 ML BAG 20 MCG IV CONT (05:43)
[2022-08-10] MEDS: methylPREDNISolone SOD SUCC 40 MG VIAL IV PUSH ×4 (05:43→23:48)
[2022-08-10 06:14] LABS: Anisocytosis 2+ (NORMAL); Hypochromasia 2+ (NORMAL); Microcytosis 1+ (NORMAL); Platelet Estimate Adequate (Adequate)
[2022-08-10 06:15] LABS: Schistocytes None Seen (NORMAL)
[2022-08-10] MEDS: BUDESONIDE RESPULE NEB 0.5 MG/2 ML AMP INHALATION ×2 (07:07→20:33)
[2022-08-10 08:03] LABS: Reflex Lactic Acid Yes or No Add Lactic
--- NOTE | 2022-08-10 08:32 | WPDINTPN ---
Progress Note: A&P Assessment and Plan (1) Chest pain: Qualifiers: Chest pain type: unspecified Qualified Code(s): R07.9 - Chest pain, unspecified Code(s): R07.9 - Chest pain, unspecified Status: Acute Assessment and Plan: Patient presented with chest pain in the outside hospital associated with shortness of breath, diaphoresis, nausea. -EKG at the outside hospital and at [facility] showed atrial flutter/fib with RVR -troponin negative x3. -off note patient had stress test in March 2019 that was unremarkable which was obtained from the ER note from the outside hospital -cardiology following the patient, -08/09 echocardiogram has been performed, pending report (2) Respiratory failure: Qualifiers: Chronicity: acute on chronic Respiratory failure complication: hypercapnia Qualified Code(s): J96.22 - Acute and chronic respiratory failure with hypercapnia Code(s): J96.90 - Respiratory failure, unspecified, unspecified whether with hypoxia or hypercapnia Status: Acute Assessment and Plan: Acute on chronic hypercapnic respiratory failure likely related to COPD, possible volume overload, possible pneumonia patient has cough, shortness of breath, leukocytosis -patient placed on BiPAP, currently on 24/8, 30% FiO2 and a rate of 18, repeat ABGs on BiPAP did not change that patient was more somnolent and not arousable -decided to intubate on 08/10/2019 -currently on CMV mode of ventilation, peep of 5, 30% FiO2, adequate O2 sats -ABGs reviewed -chest x-ray this morning: There are lucencies in the lungs, consistent with emphysema. No pneumonia, pleural effusion, or pneumothorax.? -continue bronchodilators and budesonide -continue Solu-Medrol -continue cefepime, azithromycin and vancomycin (08/09), will deescalate once cultures are resulted -08/09 blood and urine cultures have been obtained, (3) COPD (chronic obstructive pulmonary disease): Qualifiers: COPD type: COPD with acute exacerbation Qualified Code(s): J44.1 - Chronic obstructive pulmonary disease with (acute) exacerbation Code(s): J44.9 - Chronic obstructive pulmonary disease, unspecified Status: Acute Assessment and Plan: Continue bronchodilators, steroids, antibiotics (4) Urinary tract infection: Qualifiers: Urinary tract infection type: acute cystitis Hematuria presence: without hematuria Qualified Code(s): N30.00 - Acute cystitis without hematuria Code(s): N39.0 - Urinary tract infection, site not specified Status: Acute Assessment and Plan: UA reflective of UTI -continue antibiotics as above -urine and blood cultures have been obtained and pending (5) Afib: Qualifiers: Atrial fibrillation type: paroxysmal Qualified Code(s): I48.0 - Paroxysmal atrial fibrillation Code(s): I48.91 - Unspecified atrial fibrillation Status: Acute Assessment and Plan: Patient also has paroxysmal AFib, on apixaban at home -ordered metoprolol p.r.n. -continue apixaban -currently in sinus tachycardia (6) CKD (chronic kidney disease) stage 3, GFR 30-59 ml/min: Code(s): N18.30 - Chronic kidney disease, stage 3 unspecified Status: Acute Assessment and Plan: Patient has history of chronic kidney disease stage 3 -continue to monitor urine output, renal function and electrolytes -creatinine on admission was 0.80, -decreased urine output since admission elevated creatinine and this morning -will give small IV fluid bolus and start maintenance fluids (7) Chronic pain disorder: Code(s): G89.4 - Chronic pain syndrome Status: Acute Assessment and Plan: History of chronic pain syndrome on chronic opiates, this could be the 1 of the causes of hypercapnic respiratory failure (8) GERD (gastroesophageal reflux disease): Qualifiers: Esophagitis presence: esophagitis presence not specified Qualif
[2022-08-10] MEDS: SODIUM CHLORIDE 0.9% IV 500 ML IV CONT ×2 (08:48→11:19)
[2022-08-10] MEDS: MINERAL OIL/WHITE PETROLATUM OINTMENT 1 APPLIC EACH EYE ×2 (09:01→21:06)
[2022-08-10] MEDS: PANTOPRAZOLE SODIUM IV 40 MG VIAL IV PUSH (09:01)
[2022-08-10 09:11] LABS: Lactic Acid 2.1 mmol/L (0.7-2.0)
[2022-08-10] MEDS: APIXABAN 5 MG TABLET PO ×2 (09:42→16:30)
[2022-08-10] MEDS: SODIUM CHLORIDE 0.9% IV 1,000 ML 75 ML IV CONT (09:43)
[2022-08-10] MEDS: MIDAZOLAM 100MG/NS 100ML(*CRX) 100 MG/100 ML BAG 6 MG IV CONT (10:55)
[2022-08-10] MEDS: INSULIN ASPART (*BKC) 100 UNITS/ML SUB-Q ×2 (11:44→23:48)
--- NOTE | 2022-08-10 11:50 | P.PNIM_ITS ---
Progress Note: A&P Assessment and Plan (1) Chest pain: Qualifiers: Chest pain type: unspecified Qualified Code(s): R07.9 - Chest pain, unspecified Code(s): R07.9 - Chest pain, unspecified Status: Acute Assessment and Plan: Patient presented with chest pain in the outside hospital associated with shortness of breath, diaphoresis, nausea. -EKG at the outside hospital and at [facility] showed atrial flutter/fib with RVR -troponin negative x3. -off note patient had stress test in March 2019 that was unremarkable which was obtained from the ER note from the outside hospital -cardiology following the patient, -08/09 echocardiogram has been performed, pending report (2) Respiratory failure: Qualifiers: Chronicity: acute on chronic Respiratory failure complication: hypercapnia Qualified Code(s): J96.22 - Acute and chronic respiratory failure with hypercapnia Code(s): J96.90 - Respiratory failure, unspecified, unspecified whether with hypoxia or hypercapnia Status: Acute Assessment and Plan: Acute on chronic hypercapnic respiratory failure likely related to COPD, possible volume overload, possible pneumonia patient has cough, shortness of breath, leukocytosis -patient placed on BiPAP, currently on 24/8, 30% FiO2 and a rate of 18, repeat ABGs on BiPAP did not change that patient was more somnolent and not arousable -decided to intubate on 08/10/2019 -currently on CMV mode of ventilation, peep of 5, 30% FiO2, adequate O2 sats -ABGs reviewed -chest x-ray this morning: There are lucencies in the lungs, consistent with emphysema. No pneumonia, pleural effusion, or pneumothorax.? -continue bronchodilators and budesonide -continue Solu-Medrol -continue cefepime, azithromycin and vancomycin (08/09), will deescalate once cultures are resulted -08/09 blood and urine cultures have been obtained, (3) COPD (chronic obstructive pulmonary disease): Qualifiers: COPD type: COPD with acute exacerbation Qualified Code(s): J44.1 - Chronic obstructive pulmonary disease with (acute) exacerbation Code(s): J44.9 - Chronic obstructive pulmonary disease, unspecified Status: Acute Assessment and Plan: Continue bronchodilators, steroids, antibiotics (4) Urinary tract infection: Qualifiers: Urinary tract infection type: acute cystitis Hematuria presence: without hematuria Qualified Code(s): N30.00 - Acute cystitis without hematuria Code(s): N39.0 - Urinary tract infection, site not specified Status: Acute Assessment and Plan: UA reflective of UTI -continue antibiotics as above -urine and blood cultures have been obtained and pending (5) Afib: Qualifiers: Atrial fibrillation type: paroxysmal Qualified Code(s): I48.0 - Paroxysmal atrial fibrillation Code(s): I48.91 - Unspecified atrial fibrillation Status: Acute Assessment and Plan: Patient also has paroxysmal AFib, on apixaban at home -ordered metoprolol p.r.n. -continue apixaban -currently in sinus tachycardia (6) CKD (chronic kidney disease) stage 3, GFR 30-59 ml/min: Code(s): N18.30 - Chronic kidney disease, stage 3 unspecified Status: Acute Assessment and Plan: Patient has history of chronic kidney disease stage 3 -continue to monitor urine output, renal function and electrolytes -creatinine on admission was 0.80, -decreased urine output since admission elevated creatinine and this morning -will give small IV fluid bolus and start maintenance fluids (7) Chronic pain disorder:
[2022-08-10 12:47] LABS: Glucose Point of Care 210 mg/dl (65-105)
[2022-08-10 17:46] LABS: Glucose Point of Care 176 mg/dl (65-105)
[2022-08-10] MEDS: FENTANYL 2,500MCG/NS250ML(*CRX 2,500 MCG/250 ML BAG 17.5 MCG IV CONT (19:44)
[2022-08-10] MEDS: DOCUSATE SODIUM LIQ 100 MG/10 ML UDC PO (21:15)
[2022-08-10 23:45] LABS: Glucose Point of Care 216 mg/dl (65-105)
[2022-08-11] VITALS (50 sets, daily range): BP systolic 90–162; BP diastolic 56–95; PULSE 65–137; RESP 18–24; TEMP 36.6–37.5; O2SAT 92–100
[2022-08-11 00:55] LABS: Vancomycin Trough 16.1 ug/mL (10.0-20.0)
[2022-08-11] MEDS: SODIUM CHLORIDE 0.9% IV 1,000 ML 75 ML IV CONT ×2 (01:17→16:23)
[2022-08-11] MEDS: LEVALBUTEROL NEB 1.25 MG/3 ML INHALATION ×4 (03:05→20:50)
[2022-08-11] MEDS: MIDAZOLAM 100MG/NS 100ML(*CRX) 100 MG/100 ML BAG 6 MG IV CONT ×2 (03:37→23:41)
[2022-08-11] MEDS: CEFEPIME 2 GM/NS 50 ML 2 GM/50 ML BAG IVPB ×3 (03:39→20:02)
[2022-08-11 04:18] LABS: Basophils Percent Auto 0.2 % (0.2-1.2); Hematocrit 27.6 % (42.0-52.0); Hemoglobin 7.7 g/dL (14.0-18.0); Immature Granulocyte Absolute 0.13 K/mm3 (0.00-0.031); Lymphocytes Absolute Auto 0.59 K/mm3 (0.9-3.2); Lymphocytes Percent Auto 4.7 % (18.3-44.2); Mean Corpuscular HGB Conc 27.9 g/dl (32-36); Mean Corpuscular Hemoglobin 21.3 pg (26-34); Mean Corpuscular Volume 76.5 fl (80-100); Mean Platelet Volume 8.4 fl (7.4-10.4); Monocytes Absolute Auto 0.1 K/mm3 (0.1-0.6); Neutrophils Absolute Auto 11.7 K/mm3 (1.3-6.7); Neutrophils Percent Auto 93.1 % (45.5-73.1); Nucleated Red Blood Cells Perc 0.2 % (0.0-0.2); Platelet Count Result 375 k/mm3 (150-375); Red Blood Count 3.61 M/mm3 (4.6-6.20); Red Cell Distribution Width 19.3 % (11.5-14.5); White Blood Count 12.6 K/mm3 (4.5-10.0)
[2022-08-11 04:35] LABS: Lactic Acid Reflex 4.2 mmol/L (0.7-2.0)
[2022-08-11 04:36] LABS: Albumin Level 3.9 g/dL (3.5-5.1); Alkaline Phosphatase 48 U/L (38-126); Anion Gap 11 mmol/L (8-16); Aspartate Amino Transferase 31 U/L (17-59); Bilirubin,Total 0.4 mg/dL (0.2-1.3); Blood Urea Nitrogen 32 mg/dL (9-20); Calcium 7.8 mg/dL (8.4-10.2); Carbon Dioxide 26 mmol/L (22-30); Chloride 94 mmol/L (98-107); Estimated CRCL calculation 46 ml/min; Estimated Glomerular Filt Rate 59; Glucose 234 mg/dL (65-110); Magnesium 2.3 mg/dL (1.6-2.3); Phosphorus 2.8 mg/dL (2.5-4.5); Potassium 3.5 mmol/L (3.4-5.0); Sodium 131 mmol/L (137-145)
[2022-08-11 04:43] LABS: Alanine Aminotransferase 41 U/L (6-50)
[2022-08-11 04:47] LABS: Hypochromasia 2+ (NORMAL); Platelet Estimate Adequate (Adequate)
[2022-08-11 04:48] LABS: Microcytosis 2+ (NORMAL); Schistocytes None Seen (NORMAL)
[2022-08-11] MEDS: INSULIN ASPART (*BKC) 100 UNITS/ML SUB-Q ×3 (05:04→23:42)
[2022-08-11] MEDS: CENTRAL LINE FLUSH 10 ML IV PUSH ×3 (05:05→20:02)
[2022-08-11] MEDS: methylPREDNISolone SOD SUCC 40 MG VIAL IV PUSH ×4 (05:07→23:42)
[2022-08-11 05:33] LABS: Alveolar/Arterial O2 Gradient 73.8 mmHg; Base Excess ABG 3.3 mEq/l (+/-2.0); Fractional Inspired Oxygen 28 %; Methemoglobin ABG 0.2 %THb (0-1.5); Oxygen Content ABG 14.9 %vol (16.0-22.0); Oxygen Saturation ABG 93.4 % (95.0-100.0); Oxyhemoglobin 91.9 % THb (90.0-100.0); PCO2 ABG 48.7 mmHg (35.0-45.0); PO2 ABG 68.4 mmHg (80.0-100.0); PO2 FiO2 Ratio Arterial Blood 2.44 %; Reduced Hemoglobin 7.9 %THb (0-5.0); Total Hemoglobin 11.5 g/dL (12.0-18.0); pH ABG 7.392 (7.350-7.450)
[2022-08-11 05:36] LABS: Device VENTILATOR; Modified Allen's Test Pass; Site Drawn RIGHT RADIAL
[2022-08-11 05:37] LABS: Arterial Blood Gas PEEP 5 cmH2O; Arterial Blood Gas Tidal Volume 500 ml; Arterial Blood Gas Vent Mode CMV; Arterial Blood Gas Ventilator rate 18 /MIN
[2022-08-11] MEDS: SODIUM CHLORIDE 0.9% IV 500 ML IV CONT (06:31)
[2022-08-11 07:16] LABS: Reflex Lactic Acid Yes or No Add Lactic
[2022-08-11 07:54] LABS: Lactate Dehydrogenase 177 U/L (120-246)
[2022-08-11] MEDS: BUDESONIDE RESPULE NEB 0.5 MG/2 ML AMP INHALATION ×2 (08:04→20:50)
[2022-08-11 08:16] LABS: Iron < 10 ug/dL (49-181)
--- NOTE | 2022-08-11 09:00 | WPDINTPN ---
Progress Note: A&P Assessment and Plan (1) Chest pain: Qualifiers: Chest pain type: unspecified Qualified Code(s): R07.9 - Chest pain, unspecified Code(s): R07.9 - Chest pain, unspecified Status: Acute Assessment and Plan: Patient presented with chest pain in the outside hospital associated with shortness of breath, diaphoresis, nausea. -EKG at the outside hospital and at [facility] showed atrial flutter/fib with RVR -troponin negative x3. -off note patient had stress test in March 2019 that was unremarkable which was obtained from the ER note from the outside hospital -cardiology following the patient, -08/09 echocardiogram has been performed, pending report (2) Respiratory failure: Qualifiers: Chronicity: acute on chronic Respiratory failure complication: hypercapnia Qualified Code(s): J96.22 - Acute and chronic respiratory failure with hypercapnia Code(s): J96.90 - Respiratory failure, unspecified, unspecified whether with hypoxia or hypercapnia Status: Acute Assessment and Plan: Acute on chronic hypercapnic respiratory failure likely related to COPD, possible volume overload, possible pneumonia patient has cough, shortness of breath, leukocytosis -08/09: patient placed on BiPAP, repeat ABGs on BiPAP did not change that patient was more somnolent and not arousable -intubated on 08/10/2019 -currently on CMV mode of ventilation, peep of 5, 28% FiO2, adequate O2 sats -ABGs reviewed -chest x-ray this morning: There are lucencies in the lungs, consistent with emphysema. A calcified right lung nodule and calcified right hilar lymph nodes are consistent with old granulomatous disease. No pleural effusion or pneumothorax -continue bronchodilators and budesonide -continue Solu-Medrol, patient still wheezing -continue cefepime, azithromycin and vancomycin (08/09), will deescalate once cultures are resulted -08/09: MRSA screen positive -08/09: Blood negative x2 so far -08/09: Urine cultures negative (3) COPD (chronic obstructive pulmonary disease): Qualifiers: COPD type: COPD with acute exacerbation Qualified Code(s): J44.1 - Chronic obstructive pulmonary disease with (acute) exacerbation Code(s): J44.9 - Chronic obstructive pulmonary disease, unspecified Status: Acute Assessment and Plan: Continue bronchodilators, steroids, antibiotics (4) Urinary tract infection: Qualifiers: Urinary tract infection type: acute cystitis Hematuria presence: without hematuria Qualified Code(s): N30.00 - Acute cystitis without hematuria Code(s): N39.0 - Urinary tract infection, site not specified Status: Acute Assessment and Plan: UA reflective of UTI -continue antibiotics as above -urine cultures negative (5) Afib: Qualifiers: Atrial fibrillation type: paroxysmal Qualified Code(s): I48.0 - Paroxysmal atrial fibrillation Code(s): I48.91 - Unspecified atrial fibrillation Status: Acute Assessment and Plan: Patient also has paroxysmal AFib, on apixaban at home -ordered metoprolol p.r.n. -continue apixaban -currently in sinus rhythm, rate controlled (6) CKD (chronic kidney disease) stage 3, GFR 30-59 ml/min: Code(s): N18.30 - Chronic kidney disease, stage 3 unspecified Status: Acute Assessment and Plan: Patient has history of chronic kidney disease stage 3 -continue to monitor urine output, renal function and electrolytes -creatinine on admission was 0.80, -05/06: decreased urine output since admission elevated creatinine, elevated lactic acid -patient given small IV fluid bolus and gentle hydration -creatinine improved this morning, lactic acid has resolved, 1.0 this morning (7) Chronic pain disorder: Code(s): G89.4 - Chronic pain syndrome Status: Acute Assessment and Plan: History of chronic pain syndrome on chronic opiates, this could be the 1
[2022-08-11] MEDS: APIXABAN 5 MG TABLET PO ×2 (09:19→16:25)
[2022-08-11] MEDS: POTASSIUM CHLORIDE 20 MEQ PACKET (FOR LIQUID) 40 MEQ FEED TUBE (09:19)
[2022-08-11] MEDS: polyethylene glycoL 3350 17 GM POWD.PACK PO (09:19)
[2022-08-11] MEDS: MINERAL OIL/WHITE PETROLATUM OINTMENT 1 APPLIC EACH EYE ×2 (09:20→20:02)
[2022-08-11] MEDS: DOCUSATE SODIUM LIQ 100 MG/10 ML UDC PO ×2 (09:20→20:02)
[2022-08-11] MEDS: PANTOPRAZOLE SODIUM IV 40 MG VIAL IV PUSH (09:20)
[2022-08-11] MEDS: LACTULOSE 20 GM/30 ML UDC PO (09:52)
[2022-08-11 10:01] LABS: Percent Iron Saturation < 3 % (20-50)
--- NOTE | 2022-08-11 11:26 | PM.IMPN ---
Progress Note: A&P Assessment and Plan (1) Chest pain: Qualifiers: Chest pain type: unspecified Qualified Code(s): R07.9 - Chest pain, unspecified Code(s): R07.9 - Chest pain, unspecified Status: Acute Assessment and Plan: Monitor (2) Respiratory failure: Qualifiers: Chronicity: acute on chronic Respiratory failure complication: hypercapnia Qualified Code(s): J96.22 - Acute and chronic respiratory failure with hypercapnia Code(s): J96.90 - Respiratory failure, unspecified, unspecified whether with hypoxia or hypercapnia Status: Acute Assessment and Plan: Acute on chronic hypercapnic respiratory failure likely related to COPD, possible volume overload, possible pneumonia patient has cough, shortness of breath, leukocytosis -08/09: patient placed on BiPAP, repeat ABGs on BiPAP did not change that patient was more somnolent and not arousable -intubated on 08/10/2019 -intubated currently, managed per ICU -continue cefepime, azithromycin and vancomycin (08/09), will deescalate once cultures are resulted -08/09: MRSA screen positive -08/09: Blood negative x2 so far -08/09: Urine cultures negative (3) COPD (chronic obstructive pulmonary disease): Qualifiers: COPD type: COPD with acute exacerbation Qualified Code(s): J44.1 - Chronic obstructive pulmonary disease with (acute) exacerbation Code(s): J44.9 - Chronic obstructive pulmonary disease, unspecified Status: Acute Assessment and Plan: Continue bronchodilators, steroids, antibiotics (4) Urinary tract infection: Qualifiers: Urinary tract infection type: acute cystitis Hematuria presence: without hematuria Qualified Code(s): N30.00 - Acute cystitis without hematuria Code(s): N39.0 - Urinary tract infection, site not specified Status: Acute Assessment and Plan: UA reflective of UTI -continue antibiotics as above -urine cultures negative (5) Afib: Qualifiers: Atrial fibrillation type: paroxysmal Qualified Code(s): I48.0 - Paroxysmal atrial fibrillation Code(s): I48.91 - Unspecified atrial fibrillation Status: Acute Assessment and Plan: Patient also has paroxysmal AFib, on apixaban at home -ordered metoprolol p.r.n. -continue apixaban -currently in sinus rhythm, rate controlled (6) CKD (chronic kidney disease) stage 3, GFR 30-59 ml/min: Code(s): N18.30 - Chronic kidney disease, stage 3 unspecified Status: Acute Assessment and Plan: Patient has history of chronic kidney disease stage 3 -continue to monitor urine output, renal function and electrolytes -creatinine on admission was 0.80, -08/10: decreased urine output since admission elevated creatinine, elevated lactic acid -patient given small IV fluid bolus and gentle hydration -creatinine improved this morning, lactic acid has resolved, 1.0 this morning (7) Chronic pain disorder: Code(s): G89.4 - Chronic pain syndrome Status: Acute Assessment and Plan: History of chronic pain syndrome on chronic opiates, this could be the 1 of the causes of hypercapnic respiratory failure (8) GERD (gastroesophageal reflux disease): Qualifiers: Esophagitis presence: esophagitis presence not specified Qualified Code(s): K21.9 - Gastro-esophageal reflux disease without esophagitis Code(s): K21.9 - Gastro-esophageal reflux disease without esophagitis Status: Acute Assessment and Plan: Continue Protonix (9) Abdominal distension: Code(s): R14.0 - Abdominal distension (gaseous) Status: Acute Assessment and Plan: 08/11:Obstructive his she a shows nonobstructive bowel gas pattern, large volume of stool in the colon, no free intraperitoneal gas -history of opiate use, large volume stools in the colon as mentioned above, patient on docusate, MiraLax, will add lactulose -continue tube Subjective Date/
[2022-08-11] MEDS: IRON SUCROSE COMPLEX 200 MG in SODIUM CHLORIDE 0.9% IV 50 ML 120 MG IVPB (12:00)
[2022-08-11 12:46] LABS: Glucose Point of Care 235 mg/dl (65-105)
[2022-08-11] MEDS: FENTANYL 2,500MCG/NS250ML(*CRX 2,500 MCG/250 ML BAG 17.5 MCG IV CONT (13:25)
[2022-08-11] MEDS: METOPROLOL TARTRATE 50 MG TAB PO ×2 (14:07→21:15)
[2022-08-11] MEDS: METOCLOPRAMIDE HCL INJ 10 MG/2 ML VIAL IV PUSH ×3 (14:07→23:43)
[2022-08-11 17:33] LABS: Glucose Point of Care 199 mg/dl (65-105)
[2022-08-11 23:57] LABS: Glucose Point of Care 241 mg/dl (65-105)
[2022-08-12] VITALS (50 sets, daily range): BP systolic 107–187; BP diastolic 62–100; PULSE 63–140; RESP 18–28; TEMP 36.9–37.7; O2SAT 92–100; BMI 30.4
[2022-08-12] MEDS: LEVALBUTEROL NEB 1.25 MG/3 ML INHALATION ×3 (02:20→14:11)
[2022-08-12] MEDS: FENTANYL 2,500MCG/NS250ML(*CRX 2,500 MCG/250 ML BAG 20 MCG IV CONT ×2 (03:18→17:02)
[2022-08-12] MEDS: CEFEPIME 2 GM/NS 50 ML 2 GM/50 ML BAG IVPB ×3 (04:36→20:51)
[2022-08-12 04:55] LABS: IFOB Positive Control Positive; Immunochemical Fecal Occult Bl Positive (N)
[2022-08-12 05:45] LABS: Alveolar/Arterial O2 Gradient 79.6 mmHg; Carboxyhemoglobin 0.1 % THb (0-2.0); Fractional Inspired Oxygen 30 %; HCO3 ABG 27.2 mEq/l (22.0-26.0); Methemoglobin ABG 0.3 %THb (0-1.5); Oxygen Content ABG 13.1 %vol (16.0-22.0); Oxygen Saturation ABG 90.4 % (95.0-100.0); Oxyhemoglobin 89.8 % THb (90.0-100.0); PCO2 ABG 58.1 mmHg (35.0-45.0); Reduced Hemoglobin 9.8 %THb (0-5.0); Total Hemoglobin 10.3 g/dL (12.0-18.0)
[2022-08-12 05:46] LABS: Device VENTILATOR; Modified Allen's Test Pass; Site Drawn RIGHT RADIAL; pH ABG 7.289 (7.350-7.450)
[2022-08-12 05:47] LABS: Arterial Blood Gas PEEP 5 cmH2O; Arterial Blood Gas Tidal Volume 500 ml; Arterial Blood Gas Vent Mode CMV; Arterial Blood Gas Ventilator rate 18 /MIN
[2022-08-12] MEDS: METOCLOPRAMIDE HCL INJ 10 MG/2 ML VIAL IV PUSH ×4 (05:52→23:40)
[2022-08-12] MEDS: methylPREDNISolone SOD SUCC 40 MG VIAL IV PUSH ×4 (05:52→23:38)
[2022-08-12] MEDS: CENTRAL LINE FLUSH 10 ML IV PUSH ×3 (05:53→20:58)
[2022-08-12 06:00] LABS: Glucose Point of Care 195 mg/dl (65-105)
[2022-08-12 06:05] LABS: Alanine Aminotransferase 20 U/L (6-50); Albumin Level 3.6 g/dL (3.5-5.1); Alkaline Phosphatase 47 U/L (38-126); Anion Gap 7 mmol/L (8-16); Aspartate Amino Transferase 21 U/L (17-59); Bilirubin,Total 0.4 mg/dL (0.2-1.3); Blood Urea Nitrogen 33 mg/dL (9-20); Calcium 7.6 mg/dL (8.4-10.2); Carbon Dioxide 27 mmol/L (22-30); Chloride 101 mmol/L (98-107); Estimated CRCL calculation 56 ml/min; Estimated Glomerular Filt Rate > 60; Glucose 196 mg/dL (65-110); Magnesium 2.6 mg/dL (1.6-2.3); Phosphorus 1.8 mg/dL (2.5-4.5); Potassium 4.6 mmol/L (3.4-5.0); Sodium 135 mmol/L (137-145)
[2022-08-12 06:05] LABS: Lactic Acid Reflex 1.8 mmol/L (0.7-2.0)
[2022-08-12 06:07] LABS: Basophils Percent Auto 0.1 % (0.2-1.2); Hematocrit 25.5 % (42.0-52.0); Immature Granulocyte Absolute 0.24 K/mm3 (0.00-0.031); Immature Granulocyte Percent A 1.5 % (0-0.5); Lymphocytes Absolute Auto 0.45 K/mm3 (0.9-3.2); Lymphocytes Percent Auto 2.8 % (18.3-44.2); Mean Corpuscular HGB Conc 27.5 g/dl (32-36); Mean Corpuscular Hemoglobin 21.2 pg (26-34); Mean Corpuscular Volume 77.3 fl (80-100); Mean Platelet Volume 8.6 fl (7.4-10.4); Monocytes Absolute Auto 0.8 K/mm3 (0.1-0.6); Neutrophils Absolute Auto 14.8 K/mm3 (1.3-6.7); Neutrophils Percent Auto 90.6 % (45.5-73.1); Nucleated Red Blood Cells Absolute Auto 0.1 K/mm3 (0.0-0.012); Nucleated Red Blood Cells Perc 0.8 % (0.0-0.2); Platelet Count Result 368 k/mm3 (150-375); Red Cell Distribution Width 19.7 % (11.5-14.5); White Blood Count 16.3 K/mm3 (4.5-10.0)
[2022-08-12 06:42] LABS: Anisocytosis 2+ (NORMAL); Hypochromasia 1+ (NORMAL); Microcytosis 1+ (NORMAL); Platelet Estimate Adequate (Adequate); Schistocytes None Seen (NORMAL)
[2022-08-12] MEDS: SODIUM CHLORIDE 0.9% IV 1,000 ML 75 ML IV CONT (08:03)
[2022-08-12] MEDS: PANTOPRAZOLE SODIUM IV 40 MG VIAL IV PUSH ×2 (08:04→20:57)
[2022-08-12] MEDS: CALCIUM GLUC 2,000 MG/NS 100ML 2,000 MG/100 ML BAG 100 MG IVPB (08:37)
[2022-08-12] MEDS: METOPROLOL TARTRATE 50 MG TAB PO ×2 (08:45→20:57)
[2022-08-12] MEDS: DOCUSATE SODIUM LIQ 100 MG/10 ML UDC PO ×2 (08:45→20:57)
[2022-08-12] MEDS: MINERAL OIL/WHITE PETROLATUM OINTMENT 1 APPLIC EACH EYE ×2 (08:45→20:57)
[2022-08-12] MEDS: LACTULOSE 20 GM/30 ML UDC PO (08:45)
[2022-08-12] MEDS: polyethylene glycoL 3350 17 GM POWD.PACK PO (08:49)
[2022-08-12] MEDS: IRON SUCROSE COMPLEX 200 MG in SODIUM CHLORIDE 0.9% IV 50 ML 120 MG IVPB (08:49)
--- NOTE | 2022-08-12 09:45 | WPDINTPN ---
Progress Note: A&P Assessment and Plan (1) Chest pain: Qualifiers: Chest pain type: unspecified Qualified Code(s): R07.9 - Chest pain, unspecified Code(s): R07.9 - Chest pain, unspecified Status: Acute Assessment and Plan: Patient presented with chest pain in the outside hospital associated with shortness of breath, diaphoresis, nausea. -EKG at the outside hospital and at [facility] showed atrial flutter/fib with RVR -troponin negative x3. -off note patient had stress test in March 2019 that was unremarkable which was obtained from the ER note from the outside hospital -cardiology following the patient, -08/09 echocardiogram has been performed, pending report (2) Respiratory failure: Qualifiers: Chronicity: acute on chronic Respiratory failure complication: hypercapnia Qualified Code(s): J96.22 - Acute and chronic respiratory failure with hypercapnia Code(s): J96.90 - Respiratory failure, unspecified, unspecified whether with hypoxia or hypercapnia Status: Acute Assessment and Plan: Acute on chronic hypercapnic respiratory failure likely related to COPD, possible volume overload, possible pneumonia patient has cough, shortness of breath, leukocytosis -08/09: patient placed on BiPAP, repeat ABGs on BiPAP did not change that patient was more somnolent and not arousable -intubated on 08/10/2019 -currently on CMV mode of ventilation, peep of 5, 28% FiO2, adequate O2 sats -ABGs reviewed -chest x-ray this morning: There are lucencies in the lungs, consistent with emphysema. A calcified right lung nodule and calcified right hilar lymph nodes are consistent with old granulomatous disease. No pleural effusion or pneumothorax -continue bronchodilators and budesonide -continue Solu-Medrol, patient still wheezing -continue cefepime, azithromycin and vancomycin (08/09), will deescalate once cultures are resulted -08/09: MRSA screen positive -08/09: Blood negative x2 so far -08/09: Urine cultures negative -08/10: Sputum culture negative so far (3) COPD (chronic obstructive pulmonary disease): Qualifiers: COPD type: COPD with acute exacerbation Qualified Code(s): J44.1 - Chronic obstructive pulmonary disease with (acute) exacerbation Code(s): J44.9 - Chronic obstructive pulmonary disease, unspecified Status: Acute Assessment and Plan: Continue bronchodilators, steroids, antibiotics (4) Urinary tract infection: Qualifiers: Urinary tract infection type: acute cystitis Hematuria presence: without hematuria Qualified Code(s): N30.00 - Acute cystitis without hematuria Code(s): N39.0 - Urinary tract infection, site not specified Status: Acute Assessment and Plan: UA reflective of UTI -continue antibiotics as above -urine cultures negative (5) Afib: Qualifiers: Atrial fibrillation type: paroxysmal Qualified Code(s): I48.0 - Paroxysmal atrial fibrillation Code(s): I48.91 - Unspecified atrial fibrillation Status: Acute Assessment and Plan: Patient also has paroxysmal AFib, on apixaban at home -ordered metoprolol p.r.n. -currently in sinus rhythm, rate controlled -08/12: hold apixaban as patient is anemic and dropped his hemoglobin to 7.0 (6) CKD (chronic kidney disease) stage 3, GFR 30-59 ml/min: Code(s): N18.30 - Chronic kidney disease, stage 3 unspecified Status: Acute Assessment and Plan: Patient has history of chronic kidney disease stage 3 -continue to monitor urine output, renal function and electrolytes -creatinine on admission was 0.80, -08/10: decreased urine output since admission elevated creatinine, elevated lactic acid -patient given small IV fluid bolus and gentle hydration -creatinine and lactic acid have normalized (7) Chronic pain disorder: Code(s): G89.4 - Chronic pain syndrome Status: Acute Assessment and Plan: Histo
[2022-08-12] MEDS: BUDESONIDE RESPULE NEB 0.5 MG/2 ML AMP INHALATION ×2 (09:50→19:05)
[2022-08-12 09:53] LABS: Expiratory Pressure 8 cmH2O; Inspiratory Pressure 24 cmH2O
[2022-08-12] MEDS: SODIUM CHLORIDE 0.9% IV 250 ML 30 ML IV CONT (10:34)
[2022-08-12] MEDS: SODIUM PHOSPHATE 20 MM in DEXTROSE 5% IN WATER 250 ML 50 MM IVPB (10:34)
--- NOTE | 2022-08-12 11:29 | PCFNICU ---
ICU Rounding Note: Pt current nutrition is Vital AF 1.2 at 50 ml/hr. Last recorded weight is 88 kg. Bowel Motility: +BM reported 08/12 Labs Reviewed:Glu 196, BUN 33, Na 135, Hct 25.5,Hgb 7.0 Meds Noted:Reglan, Lactulose, Novolog, Solu Medrol, Miralax, Versed, Fentanyl Skin: WNL Additional Notes: Patient remains on mechanical vent and tube feedings of Vital AF 1.2 at 50 ml/hr and tolerating. Discussions regarding tube feedings rate changes in rounds. Recommend changing rate to 65 ml/hr, providing 1716 kcals/107 gms protein/1160 ml water. Flush 30 ml q 4 hours. Agree with diet orders. Following daily in ICU rounds and reassessing every Friday and Friday.
[2022-08-12] MEDS: INSULIN ASPART (*BKC) 100 UNITS/ML SUB-Q ×3 (12:15→23:38)
[2022-08-12 12:24] LABS: Glucose Point of Care 260 mg/dl (65-105)
[2022-08-12 12:35] LABS: Vancomycin Trough 17.4 ug/mL (10.0-20.0)
[2022-08-12] MEDS: MIDAZOLAM 100MG/NS 100ML(*CRX) 100 MG/100 ML BAG 7 MG IV CONT (14:02)
--- NOTE | 2022-08-12 14:07 | WPDGICN ---
Assessment and Plan Assessment and plan (1) Iron deficiency anemia: Code(s): D50.9 - Iron deficiency anemia, unspecified Status: Acute Assessment and Plan: he does not show any signs of active bleeding. He apparently has history of having anemia in the past. Has been no evidence of bleeding here. He has been started on Venofer. Ultimately will need to investigate for possible gastrointestinal blood loss. (2) CKD (chronic kidney disease) stage 3, GFR 30-59 ml/min: Code(s): N18.30 - Chronic kidney disease, stage 3 unspecified Status: Acute Assessment and Plan: Creatinine at admission was 0.8. (3) COPD (chronic obstructive pulmonary disease): Qualifiers: COPD type: COPD with acute exacerbation Qualified Code(s): J44.1 - Chronic obstructive pulmonary disease with (acute) exacerbation Code(s): J44.9 - Chronic obstructive pulmonary disease, unspecified Status: Acute Assessment and Plan: He has inhalers that he uses at home. Currently he is intubated. (4) Afib: Qualifiers: Atrial fibrillation type: paroxysmal Qualified Code(s): I48.0 - Paroxysmal atrial fibrillation Code(s): I48.91 - Unspecified atrial fibrillation Status: Acute Assessment and Plan: This had been diagnosed sometime in the past, and he has been on Eliquis at home. (5) Abdominal distension: Code(s): R14.0 - Abdominal distension (gaseous) Status: Acute Assessment and Plan: Much of his distention is probably the stool in his colon as seen on x-ray. That constipation likely is in turn due to the fact that he is on chronic opioid therapy for chronic pain. (6) Chronic pain disorder: Code(s): G89.4 - Chronic pain syndrome Status: Acute Assessment and Plan: He takes hydrocodone regularly for chronic pain disorder. GI Consult Note Consult date/time: 08/12/22 14:07 HPI: Eduardo Bear is a 72 year old male Who initially presented at an [facility] hospital with shortness of breath and nausea. He was found have atrial flutter/ AFib, and has in fact already been on apixaban for that diagnosis. On presentation he was short of breath and was started on BiPAP but ultimately required intubation On the day of admission. Therefore he cannot give any history at this time. He has been found to be markedly anemic with microcytic indices and very low iron, 3% saturation. It is not known if he has had prior investigation for anemia but he does have a history, according to the record of having been anemic in the past. He does have chronic kidney disease with certain the would explain some anemia. His creatinine however admission was normal. Review of Systems Review of Systems: ROS unobtainable: Yes unobtainable due to endotracheal tube PMFSH Social History Social History Smoking packs per day: 0.25 Smoking cigarettes per day: 5.0 Smoking status: Former smoker Tobacco type: cigarettes Smoking end date: 09/26/16 Alcohol intake: current Substance use: current Substance use type: painkillers Spiritual care concerns: No Meds Home Medications and Allergies Home Medications Medication Instructions Recorded Confirmed Type Chlor-Trimeton 4 mg PO BID 08/09/22 08/09/22 History apixaban 5 mg tablet (Eliquis) 5 mg PO BID 08/09/22 08/09/22 History azithromycin 250 mg tablet 250 mg PO EVERY OTHER DAY 08/09/22 08/09/22 History budesonide 0.5 mg/2 mL suspension 0.5 mg inhalation BID 08/09/22 08/09/22 History for nebulization docusate sodium 1 cap PO BID 08/09/22 08/09/22 History hydrochlorothiazide 25 mg tablet 25 mg PO DAILY 08/09/22 08/09/22 History hydrocodone 10 mg-acetaminophen 1 tablet PO PRN pain 08/09/22 08/09/22 History 325 mg tablet lidocaine HCl 2 % mucosal jelly in 1 applic topical PRN Pain 08/09/22 08/09/22 History applicator lorazepa
[2022-08-12 14:45] LABS: Hematocrit 27.7 % (42.0-52.0)
[2022-08-12 17:13] LABS: Glucose Point of Care 287 mg/dl (65-105)
[2022-08-12] MEDS: hydrALAZINE HCL 20 MG/ML VIAL 10 MG IV PUSH (18:23)
[2022-08-12] MEDS: methylPREDNISolone SOD SUCC 125 MG VIAL IV PUSH (18:59)
[2022-08-12] MEDS: methylPREDNISolone SOD SUCC 125 MG VIAL (19:05)
[2022-08-12] MEDS: LEVALBUTEROL NEB 1.25 MG/3 ML 5 MG INHALATION (19:05)
[2022-08-12 23:36] LABS: Glucose Point of Care 300 mg/dl (65-105)
[2022-08-13] VITALS (42 sets, daily range): BP systolic 98–183; BP diastolic 62–96; PULSE 67–125; RESP 19–24; TEMP 36.7–37.7; O2SAT 89–100; BMI 30.4
[2022-08-13] MEDS: LEVALBUTEROL NEB 1.25 MG/3 ML INHALATION ×4 (02:04→20:31)
[2022-08-13] MEDS: MIDAZOLAM 100MG/NS 100ML(*CRX) 100 MG/100 ML BAG 6 MG IV CONT (03:26)
[2022-08-13] MEDS: CEFEPIME 2 GM/NS 50 ML 2 GM/50 ML BAG IVPB ×3 (04:18→20:10)
[2022-08-13 05:16] LABS: Alveolar/Arterial O2 Gradient 73.2 mmHg; Base Excess ABG 0.3 mEq/l (+/-2.0); Carboxyhemoglobin 0.3 % THb (0-2.0); Fractional Inspired Oxygen 30 %; HCO3 ABG 26.5 mEq/l (22.0-26.0); Methemoglobin ABG 0.2 %THb (0-1.5); Oxygen Content ABG 13.1 %vol (16.0-22.0); Oxygen Saturation ABG 95.1 % (95.0-100.0); Oxyhemoglobin 94.5 % THb (90.0-100.0); PCO2 ABG 50.9 mmHg (35.0-45.0); PO2 ABG 80.9 mmHg (80.0-100.0); Total Hemoglobin 9.8 g/dL (12.0-18.0); pH ABG 7.335 (7.350-7.450)
[2022-08-13 05:17] LABS: Arterial Blood Gas PEEP 5 cmH2O; Arterial Blood Gas Vent Mode CMV; Arterial Blood Gas Ventilator rate 20 /MIN; Device VENTILATOR; Modified Allen's Test Pass; Site Drawn RIGHT RADIAL
[2022-08-13 05:18] LABS: Arterial Blood Gas Tidal Volume 500 ml
[2022-08-13 05:27] LABS: Basophils Absolute Auto 0.1 K/mm3 (0.0-0.1); Basophils Percent Auto 0.5 % (0.2-1.2); Hematocrit 33.2 % (42.0-52.0); Hemoglobin 9.4 g/dL (14.0-18.0); Immature Granulocyte Percent A 4.8 % (0-0.5); Lymphocytes Absolute Auto 0.58 K/mm3 (0.9-3.2); Lymphocytes Percent Auto 3.1 % (18.3-44.2); Mean Corpuscular HGB Conc 28.3 g/dl (32-36); Mean Corpuscular Hemoglobin 22.8 pg (26-34); Mean Corpuscular Volume 80.4 fl (80-100); Mean Platelet Volume 8.5 fl (7.4-10.4); Monocytes Absolute Auto 0.8 K/mm3 (0.1-0.6); Monocytes Percent Auto 4.4 % (2.6-8.5); Neutrophils Absolute Auto 16.3 K/mm3 (1.3-6.7); Neutrophils Percent Auto 87.2 % (45.5-73.1); Nucleated Red Blood Cells Absolute Auto 0.4 K/mm3 (0.0-0.012); Nucleated Red Blood Cells Perc 2.2 % (0.0-0.2); Platelet Count Result 356 k/mm3 (150-375); Red Blood Count 4.13 M/mm3 (4.6-6.20); Red Cell Distribution Width 21.5 % (11.5-14.5); White Blood Count 18.7 K/mm3 (4.5-10.0)
[2022-08-13] MEDS: INSULIN ASPART (*BKC) 100 UNITS/ML SUB-Q ×5 (05:28→20:09)
[2022-08-13] MEDS: methylPREDNISolone SOD SUCC 40 MG VIAL IV PUSH (05:29)
[2022-08-13] MEDS: METOCLOPRAMIDE HCL INJ 10 MG/2 ML VIAL IV PUSH ×3 (05:29→17:43)
[2022-08-13] MEDS: CENTRAL LINE FLUSH 10 ML IV PUSH ×4 (05:29→20:11)
[2022-08-13] MEDS: FENTANYL 2,500MCG/NS250ML(*CRX 2,500 MCG/250 ML BAG 20 MCG IV CONT ×2 (05:33→17:46)
[2022-08-13 05:39] LABS: Alanine Aminotransferase 25 U/L (6-50); Albumin Level 3.9 g/dL (3.5-5.1); Alkaline Phosphatase 58 U/L (38-126); Anion Gap 8 mmol/L (8-16); Aspartate Amino Transferase 26 U/L (17-59); Bilirubin,Total 0.4 mg/dL (0.2-1.3); Blood Urea Nitrogen 36 mg/dL (9-20); Calcium 8.1 mg/dL (8.4-10.2); Carbon Dioxide 29 mmol/L (22-30); Chloride 100 mmol/L (98-107); Estimated CRCL calculation 62 ml/min; Estimated Glomerular Filt Rate > 60; Glucose 301 mg/dL (65-110); Magnesium 2.7 mg/dL (1.6-2.3); Phosphorus 2.5 mg/dL (2.5-4.5); Potassium 4.4 mmol/L (3.4-5.0); Sodium 137 mmol/L (137-145)
[2022-08-13 05:47] LABS: Anisocytosis 1+ (NORMAL); Hypochromasia 2+ (NORMAL); Platelet Estimate Adequate (Adequate); Poikilocytosis 1+ (NORMAL); Schistocytes Rare (NORMAL)
[2022-08-13 06:07] LABS: Glucose Point of Care 295 mg/dl (65-105)
[2022-08-13] MEDS: BUDESONIDE RESPULE NEB 0.5 MG/2 ML AMP INHALATION ×2 (07:05→20:31)
[2022-08-13] MEDS: METOPROLOL TARTRATE 50 MG TAB PO ×2 (08:20→20:10)
[2022-08-13] MEDS: MINERAL OIL/WHITE PETROLATUM OINTMENT 1 APPLIC EACH EYE ×2 (08:20→20:10)
[2022-08-13] MEDS: polyethylene glycoL 3350 17 GM POWD.PACK PO (08:20)
[2022-08-13] MEDS: DOCUSATE SODIUM LIQ 100 MG/10 ML UDC PO ×2 (08:20→20:10)
[2022-08-13] MEDS: IRON SUCROSE COMPLEX 200 MG in SODIUM CHLORIDE 0.9% IV 50 ML 120 MG IVPB (08:20)
[2022-08-13] MEDS: PANTOPRAZOLE SODIUM IV 40 MG VIAL IV PUSH ×2 (08:20→20:10)
[2022-08-13] MEDS: LACTULOSE 20 GM/30 ML UDC PO (08:20)
[2022-08-13] MEDS: PROPOFOL IV EMULSION 100 ML 2.65 MG IV CONT (08:22)
[2022-08-13] MEDS: methylPREDNISolone SOD SUCC 125 MG VIAL 80 MG IV PUSH (08:32)
[2022-08-13] MEDS: INSULIN GLARGINE (*BKC) 100 UNITS/ML 15 UNITS SUB-Q (08:33)
[2022-08-13 08:56] LABS: Glucose Point of Care 342 mg/dl (65-105)
--- NOTE | 2022-08-13 09:05 | WPDINTPN ---
Progress Note: A&P Assessment and Plan (1) Respiratory failure: Qualifiers: Chronicity: acute on chronic Respiratory failure complication: hypercapnia Qualified Code(s): J96.22 - Acute and chronic respiratory failure with hypercapnia Code(s): J96.90 - Respiratory failure, unspecified, unspecified whether with hypoxia or hypercapnia Status: Acute Assessment and Plan: Acute on chronic hypercapnic respiratory failure likely related to COPD, possible volume overload, possible pneumonia patient has cough, shortness of breath, leukocytosis -08/09: patient placed on BiPAP, repeat ABGs on BiPAP did not change that patient was more somnolent and not arousable -intubated on 08/10/2019 -currently on CMV mode of ventilation, peep of 5, 30% FiO2, adequate O2 sats -ABGs reviewed -chest x-ray reviewed -continue bronchodilators and budesonide -continue Solu-Medrol with changed to q.a.m. -continue cefepime, azithromycin. DC vancomycin (08/09) -08/09: MRSA screen positive -08/09: Blood negative x2 so far -08/09: Urine cultures negative -08/10: Sputum culture negative so far Will perform sedation holiday and evaluate for weaning trial (2) Chest pain: Qualifiers: Chest pain type: unspecified Qualified Code(s): R07.9 - Chest pain, unspecified Code(s): R07.9 - Chest pain, unspecified Status: Acute Assessment and Plan: Patient presented with chest pain in the outside hospital associated with shortness of breath, diaphoresis, nausea. -EKG at the outside hospital and at [facility] showed atrial flutter/fib with RVR -currently in sinus tachycardia -troponin negative x3. -off note patient had stress test in March 2019 that was unremarkable which was obtained from the ER note from the outside hospital -cardiology following the patient, -08/09 echocardiogram Summary ? 1. Technically challenging examination in this intubated patient. ? 2. Definity contrast injected to improve visualization. ? 3. Hyperdynamic appearing left ventricular systolic function with grade 1 diastolic noncompliance. ? 4. No significant valvular dysfunction identified. (3) COPD (chronic obstructive pulmonary disease): Qualifiers: COPD type: COPD with acute exacerbation Qualified Code(s): J44.1 - Chronic obstructive pulmonary disease with (acute) exacerbation Code(s): J44.9 - Chronic obstructive pulmonary disease, unspecified Status: Acute Assessment and Plan: See above (4) Urinary tract infection: Qualifiers: Urinary tract infection type: acute cystitis Hematuria presence: without hematuria Qualified Code(s): N30.00 - Acute cystitis without hematuria Code(s): N39.0 - Urinary tract infection, site not specified Status: Acute Assessment and Plan: UA reflective of UTI -continue antibiotics as above -urine cultures negative (5) Afib: Qualifiers: Atrial fibrillation type: paroxysmal Qualified Code(s): I48.0 - Paroxysmal atrial fibrillation Code(s): I48.91 - Unspecified atrial fibrillation Status: Acute Assessment and Plan: Patient also has paroxysmal AFib, on apixaban at home -ordered metoprolol p.r.n. -currently in sinus rhythm, rate controlled -08/12: hold apixaban as patient is anemic and dropped his hemoglobin to 7.0 (6) CKD (chronic kidney disease) stage 3, GFR 30-59 ml/min: Code(s): N18.30 - Chronic kidney disease, stage 3 unspecified Status: Acute Assessment and Plan: Patient has history of chronic kidney disease stage 3 -continue to monitor urine output, renal function and electrolytes -creatinine on admission was 0.80, -08/10: decreased urine output since admission elevated creatinine, elevated lactic acid -patient given small IV fluid bolus and gentle hydration -creatinine and lactic acid have normalized (7) Chronic pain disorder: Code(s): G89.4 - Chronic pain syndrome
[2022-08-13 12:51] LABS: Glucose Point of Care 320 mg/dl (65-105)
[2022-08-13 17:03] LABS: Glucose Point of Care 279 mg/dl (65-105)
[2022-08-13 20:31] LABS: Glucose Point of Care 248 mg/dl (65-105)
[2022-08-14] VITALS (65 sets, daily range): BP systolic 60–192; BP diastolic 45–94; PULSE 65–149; RESP 20–62; TEMP 36.7–37.7; O2SAT 91–98
[2022-08-14] MEDS: LEVALBUTEROL NEB 1.25 MG/3 ML INHALATION ×4 (02:35→20:50)
[2022-08-14 04:10] LABS: Glucose Point of Care 233 mg/dl (65-105)
[2022-08-14] MEDS: INSULIN ASPART (*BKC) 100 UNITS/ML SUB-Q ×3 (04:15→16:14)
[2022-08-14 05:51] LABS: Glucose Point of Care 237 mg/dl (65-105)
[2022-08-14] MEDS: METOCLOPRAMIDE HCL INJ 10 MG/2 ML VIAL IV PUSH ×3 (06:00→18:12)
[2022-08-14] MEDS: FENTANYL 2,500MCG/NS250ML(*CRX 2,500 MCG/250 ML BAG 20 MCG IV CONT (06:16)
[2022-08-14] MEDS: CENTRAL LINE FLUSH 10 ML IV PUSH ×4 (06:27→21:01)
--- NOTE | 2022-08-14 06:27 | PC.NURSE ---
Unplanned [employer] down time from 2200 until 0600. See paper documentation utilized on patient's chart.
[2022-08-14 07:27] LABS: Base Excess ABG 0.8 mEq/l (+/-2.0); HCO3 ABG 27.3 mEq/l (22.0-26.0); Oxygen Saturation ABG 91.3 % (95.0-100.0); PCO2 ABG 52.3 mmHg (35.0-45.0); PO2 ABG 65.3 mmHg (80.0-100.0); Total Hemoglobin 10.7 g/dL (12.0-18.0); pH ABG 7.335 (7.350-7.450)
[2022-08-14 07:28] LABS: Alveolar/Arterial O2 Gradient 87.2 mmHg; Device VENTILATOR; Fractional Inspired Oxygen 30 %; Modified Allen's Test Unable to perform; Oxygen Content ABG 13.7 %vol (16.0-22.0); Oxyhemoglobin 90.6 % THb (90.0-100.0); PO2 FiO2 Ratio Arterial Blood 2.18 %; Site Drawn LEFT RADIAL
[2022-08-14 07:28] LABS: Alanine Aminotransferase 23 U/L (6-50); Albumin Level 3.8 g/dL (3.5-5.1); Alkaline Phosphatase 57 U/L (38-126); Anion Gap 7 mmol/L (8-16); Aspartate Amino Transferase 25 U/L (17-59); Bilirubin,Total 0.5 mg/dL (0.2-1.3); Blood Urea Nitrogen 42 mg/dL (9-20); Calcium 8.3 mg/dL (8.4-10.2); Carbon Dioxide 28 mmol/L (22-30); Chloride 100 mmol/L (98-107); Estimated CRCL calculation 62 ml/min; Estimated Glomerular Filt Rate > 60; Glucose 189 mg/dL (65-110); Phosphorus 2.2 mg/dL (2.5-4.5); Potassium 4.5 mmol/L (3.4-5.0); Sodium 135 mmol/L (137-145)
[2022-08-14 07:29] LABS: Arterial Blood Gas PEEP 5 cmH2O; Arterial Blood Gas Tidal Volume 500 ml; Arterial Blood Gas Vent Mode CMV; Arterial Blood Gas Ventilator rate 20 /MIN
[2022-08-14 07:44] LABS: Glucose Point of Care 174 mg/dl (65-105)
[2022-08-14] MEDS: hydrALAZINE HCL 20 MG/ML VIAL 10 MG IV PUSH ×2 (07:48→17:59)
[2022-08-14] MEDS: PANTOPRAZOLE SODIUM IV 40 MG VIAL IV PUSH ×2 (07:49→21:00)
[2022-08-14] MEDS: METOPROLOL TARTRATE 50 MG TAB PO ×2 (07:49→21:01)
[2022-08-14] MEDS: methylPREDNISolone SOD SUCC 125 MG VIAL 80 MG IV PUSH (07:49)
[2022-08-14] MEDS: DOCUSATE SODIUM LIQ 100 MG/10 ML UDC PO ×2 (07:49→21:00)
[2022-08-14] MEDS: MINERAL OIL/WHITE PETROLATUM OINTMENT 1 APPLIC EACH EYE ×2 (07:49→21:01)
[2022-08-14] MEDS: LACTULOSE 20 GM/30 ML UDC PO (07:50)
[2022-08-14] MEDS: BUDESONIDE RESPULE NEB 0.5 MG/2 ML AMP INHALATION ×2 (07:51→20:49)
[2022-08-14] MEDS: polyethylene glycoL 3350 17 GM POWD.PACK PO (07:58)
[2022-08-14] MEDS: PROPOFOL IV EMULSION 100 ML 15.88 MG IV CONT (08:10)
[2022-08-14] MEDS: dexmedeTOMIDine 400 MCG/100 ML 400 MCG/100 ML BAG IV CONT (09:00)
[2022-08-14 09:02] LABS: Hematocrit 32.8 % (42.0-52.0); Hemoglobin 9.4 g/dL (14.0-18.0); Mean Corpuscular HGB Conc 28.7 g/dl (32-36); Mean Corpuscular Hemoglobin 22.9 pg (26-34); Platelet Count Result 369 k/mm3 (150-375); Red Cell Distribution Width 22.4 % (11.5-14.5); White Blood Count 21.4 K/mm3 (4.5-10.0)
[2022-08-14] MEDS: METOPROLOL TARTRATE INJ 5 MG/5 ML VIAL IV PUSH ×2 (09:12→12:38)
--- NOTE | 2022-08-14 09:36 | WPDINTPN ---
Progress Note: A&P Assessment and Plan (1) Respiratory failure: Qualifiers: Chronicity: acute on chronic Respiratory failure complication: hypercapnia Qualified Code(s): J96.22 - Acute and chronic respiratory failure with hypercapnia Code(s): J96.90 - Respiratory failure, unspecified, unspecified whether with hypoxia or hypercapnia Status: Acute Assessment and Plan: Acute on chronic hypercapnic respiratory failure likely related to COPD, possible volume overload, possible pneumonia patient has cough, shortness of breath, leukocytosis -08/09: patient placed on BiPAP, repeat ABGs on BiPAP did not change that patient was more somnolent and not arousable -intubated on 08/10/2019 -currently on CMV mode of ventilation, peep of 5, 30% FiO2, adequate O2 sats -ABGs reviewed -chest x-ray reviewed -continue bronchodilators and budesonide -continue Solu-Medrol with changed to q.a.m. -continue cefepime, azithromycin. DC vancomycin (08/09) -08/09: MRSA screen was positive but sputum culture has been negative -08/09: Blood negative x2 so far -08/09: Urine cultures negative -08/10: Sputum culture negative so far -08/14 : I perform sedation holiday to evaluate patient for weaning trial but patient became tachypneic with increased work of breathing and a synchronous with the ventilator. Sedation holiday was aborted. I will continue propofol and transition patient from fentanyl to Precedex to treat any anxiety component (2) Chest pain: Qualifiers: Chest pain type: unspecified Qualified Code(s): R07.9 - Chest pain, unspecified Code(s): R07.9 - Chest pain, unspecified Status: Acute Assessment and Plan: Patient presented with chest pain in the outside hospital associated with shortness of breath, diaphoresis, nausea. -EKG at the outside hospital and at [facility] showed atrial flutter/fib with RVR -currently in sinus tachycardia -troponin negative x3. -off note patient had stress test in March 2019 that was unremarkable which was obtained from the ER note from the outside hospital -cardiology following the patient, -08/09 echocardiogram Summary ? 1. Technically challenging examination in this intubated patient. ? 2. Definity contrast injected to improve visualization. ? 3. Hyperdynamic appearing left ventricular systolic function with grade 1 diastolic noncompliance. ? 4. No significant valvular dysfunction identified. (3) COPD (chronic obstructive pulmonary disease): Qualifiers: COPD type: COPD with acute exacerbation Qualified Code(s): J44.1 - Chronic obstructive pulmonary disease with (acute) exacerbation Code(s): J44.9 - Chronic obstructive pulmonary disease, unspecified Status: Acute Assessment and Plan: See above (4) Urinary tract infection: Qualifiers: Urinary tract infection type: acute cystitis Hematuria presence: without hematuria Qualified Code(s): N30.00 - Acute cystitis without hematuria Code(s): N39.0 - Urinary tract infection, site not specified Status: Acute Assessment and Plan: UA reflective of UTI -continue antibiotics as above -urine cultures negative (5) Afib: Qualifiers: Atrial fibrillation type: paroxysmal Qualified Code(s): I48.0 - Paroxysmal atrial fibrillation Code(s): I48.91 - Unspecified atrial fibrillation Status: Acute Assessment and Plan: Patient also has paroxysmal AFib, on apixaban at home -ordered metoprolol p.r.n. -currently in sinus rhythm, rate controlled -08/12: hold apixaban as patient is anemic and dropped his hemoglobin to 7.0 5/10 start aspirin (6) CKD (chronic kidney disease) stage 3, GFR 30-59 ml/min: Code(s): N18.30 - Chronic kidney disease, stage 3 unspecified Status: Acute Assessment and Plan: Patient has history of chronic kidney disease stage 3 -continue to monitor urine output, renal function and elec
[2022-08-14] MEDS: SODIUM PHOSPHATE 20 MM in DEXTROSE 5% IN WATER 250 ML 50 MM IVPB (09:45)
[2022-08-14 10:19] LABS: Band Neutrophils Percent 3 % (0-6); Lymphocytes Absolute Manual 1.28 K/mm3 (1.1-4.5); Metamyelocytes Percent 3 %; Monocytes Absolute Manual 0.85 K/mm3 (0.1-0.90); Monocytes Percent Manual 4 % (3-9); Neutrophils Absolute Manual 18.61 K/mm3 (1.3-6.7); Neutrophils Percent Manual 84 % (46-73); Nucleated Red Blood Cells 6 %; Platelet Estimate Increased (Adequate); Total Cells Counted 100
[2022-08-14 10:20] LABS: Anisocytosis 2+ (NORMAL); Hypochromasia 1+ (NORMAL); Poikilocytosis 1+ (NORMAL); Schistocytes None Seen (NORMAL)
--- NOTE | 2022-08-14 10:56 | PCFNICU ---
ICU Rounding Note: Pt current nutrition is Vital AF 1.2 at 65 ml/hr Last recorded weight is 88.4 kg. Bowel Motility:+BM reported 08/13 Labs Reviewed:Mg 3.0,Na 135, Glu 189 Meds Noted:Reglan, Lactulose, Miralax, Precedex, Propofol 25 irer=265 kcals,Lopressor Skin: WNL Additional Notes: Patient remains on mechanical vent and tube feedings of Vital AF 1.2 at 65 ml/hr and tolerating. Propofol providing an additional 419 kcals. Total nutrition: 2135 kcals/107 gms protein/1160 ml water. Water flush 30 ml q 4 hours. Will continue to monitor propofol infusion for any rate changes needed. Following daily in ICU rounds. Will monitor in ICU rounds and reassess every Friday and Friday. .
[2022-08-14] MEDS: CEFEPIME 2 GM/NS 50 ML 2 GM/50 ML BAG IVPB ×2 (12:34→20:57)
[2022-08-14 12:36] LABS: Glucose Point of Care 296 mg/dl (65-105)
[2022-08-14] MEDS: PROPOFOL IV EMULSION 100 ML 21.17 MG IV CONT (14:10)
[2022-08-14] MEDS: dexmedeTOMIDine 400 MCG/100 ML 400 MCG/100 ML BAG 17.68 MCG IV CONT (15:33)
[2022-08-14 16:09] LABS: Glucose Point of Care 274 mg/dl (65-105)
--- NOTE | 2022-08-14 17:42 | WPDPN ---
Progress Note: A&P Assessment and Plan (1) Chest pain: Qualifiers: Chest pain type: unspecified Qualified Code(s): R07.9 - Chest pain, unspecified Code(s): R07.9 - Chest pain, unspecified Status: Acute Assessment and Plan: Monitor (2) Respiratory failure: Qualifiers: Chronicity: acute on chronic Respiratory failure complication: hypercapnia Qualified Code(s): J96.22 - Acute and chronic respiratory failure with hypercapnia Code(s): J96.90 - Respiratory failure, unspecified, unspecified whether with hypoxia or hypercapnia Status: Acute Assessment and Plan: Acute on chronic hypercapnic respiratory failure likely related to COPD, possible volume overload, possible pneumonia patient has cough, shortness of breath, leukocytosis -08/09: patient placed on BiPAP, repeat ABGs on BiPAP did not change that patient was more somnolent and not arousable -intubated on 08/10/2019 -intubated currently, managed per ICU -continue cefepime, azithromycin and vancomycin (08/09), will deescalate once cultures are resulted -08/09: MRSA screen positive -08/09: Blood negative x2 so far -08/09: Urine cultures negative 06/14/2022 inteval history: Patient with exacerbation of COPD hypercarbic respiratory failure remains intubated unable to provide any review of symptoms patient is seen by utility system operator and appreciate. (3) COPD (chronic obstructive pulmonary disease): Qualifiers: COPD type: COPD with acute exacerbation Qualified Code(s): J44.1 - Chronic obstructive pulmonary disease with (acute) exacerbation Code(s): J44.9 - Chronic obstructive pulmonary disease, unspecified Status: Acute Assessment and Plan: Continue bronchodilators, steroids, antibiotics (4) Urinary tract infection: Qualifiers: Hematuria presence: without hematuria Urinary tract infection type: acute cystitis Qualified Code(s): N30.00 - Acute cystitis without hematuria Code(s): N39.0 - Urinary tract infection, site not specified Status: Acute Assessment and Plan: UA reflective of UTI -continue antibiotics as above -urine cultures negative (5) Afib: Qualifiers: Atrial fibrillation type: paroxysmal Qualified Code(s): I48.0 - Paroxysmal atrial fibrillation Code(s): I48.91 - Unspecified atrial fibrillation Status: Acute Assessment and Plan: Patient also has paroxysmal AFib, on apixaban at home -ordered metoprolol p.r.n. -continue apixaban -currently in sinus rhythm, rate controlled (6) CKD (chronic kidney disease) stage 3, GFR 30-59 ml/min: Code(s): N18.30 - Chronic kidney disease, stage 3 unspecified Status: Acute Assessment and Plan: Patient has history of chronic kidney disease stage 3 -continue to monitor urine output, renal function and electrolytes -creatinine on admission was 0.80, -08/10: decreased urine output since admission elevated creatinine, elevated lactic acid -patient given small IV fluid bolus and gentle hydration -creatinine improved this morning, lactic acid has resolved, 1.0 this morning (7) Chronic pain disorder: Code(s): G89.4 - Chronic pain syndrome Status: Acute Assessment and Plan: History of chronic pain syndrome on chronic opiates, this could be the 1 of the causes of hypercapnic respiratory failure (8) GERD (gastroesophageal reflux disease): Qualifiers: Esophagitis presence: esophagitis presence not specified Qualified Code(s): K21.9 - Gastro-esophageal reflux disease without esophagitis Code(s): K21.9 - Gastro-esophageal reflux disease without esophagitis Status: Acute Assessment and Plan: Continue Protonix (9) Abdominal distension: Code(s): R14.0 - Abdominal distension (gaseous) Status: Acute Assessment and Plan: 08/11:Obstructive his she a shows nonobstructive bowel gas pattern, large volume of stool
[2022-08-14] MEDS: PROPOFOL IV EMULSION 100 ML 23.81 MG IV CONT (18:07)
[2022-08-14 20:15] LABS: Glucose Point of Care 191 mg/dl (65-105)
[2022-08-14] MEDS: SODIUM CHLORIDE 0.9% IV 1,000 ML 999 ML IV CONT (20:20)
[2022-08-14] MEDS: dexmedeTOMIDine 400 MCG/100 ML 400 MCG/100 ML BAG 15.47 MCG IV CONT (21:10)
[2022-08-14 22:16] LABS: Triglycerides 175 mg/dL (<150)
[2022-08-15] VITALS (78 sets, daily range): BP systolic 66–170; BP diastolic 41–144; PULSE 66–135; RESP 14–38; TEMP 36.6–37.7; O2SAT 96–100
[2022-08-15 00:02] LABS: Glucose Point of Care 178 mg/dl (65-105)
[2022-08-15] MEDS: PROPOFOL IV EMULSION 100 ML 15.91 MG IV CONT (00:08)
[2022-08-15] MEDS: METOCLOPRAMIDE HCL INJ 10 MG/2 ML VIAL IV PUSH ×4 (00:10→17:01)
[2022-08-15] MEDS: NOREPINEPHRINE 8 MG/D5W 250 ML 8 MG/250 ML BAG 9.38 MG IV CONT (02:05)
[2022-08-15] MEDS: dexmedeTOMIDine 400 MCG/100 ML 400 MCG/100 ML BAG 17.68 MCG IV CONT ×2 (02:51→08:45)
[2022-08-15] MEDS: LEVALBUTEROL NEB 1.25 MG/3 ML INHALATION ×4 (02:55→20:19)
[2022-08-15] MEDS: CEFEPIME 2 GM/NS 50 ML 2 GM/50 ML BAG IVPB ×3 (04:11→20:26)
[2022-08-15 05:40] LABS: Hematocrit 27.7 % (42.0-52.0); Hemoglobin 7.8 g/dL (14.0-18.0); Mean Corpuscular HGB Conc 28.2 g/dl (32-36); Mean Corpuscular Hemoglobin 22.7 pg (26-34); Mean Corpuscular Volume 80.5 fl (80-100); Mean Platelet Volume 8.6 fl (7.4-10.4); Platelet Count Result 274 k/mm3 (150-375); Red Blood Count 3.44 M/mm3 (4.6-6.20); Red Cell Distribution Width 23.4 % (11.5-14.5); White Blood Count 14.1 K/mm3 (4.5-10.0)
[2022-08-15] MEDS: CENTRAL LINE FLUSH 10 ML IV PUSH ×4 (05:41→22:23)
[2022-08-15] MEDS: PROPOFOL IV EMULSION 100 ML 10.61 MG IV CONT ×2 (05:41→18:50)
[2022-08-15 05:43] LABS: Alveolar/Arterial O2 Gradient 73.5 mmHg; Base Excess ABG 2.6 mEq/l (+/-2.0); Fractional Inspired Oxygen 30 %; HCO3 ABG 27.9 mEq/l (22.0-26.0); Oxygen Content ABG 11.8 %vol (16.0-22.0); Oxygen Saturation ABG 96.4 % (95.0-100.0); Oxyhemoglobin 95.2 % THb (90.0-100.0); PCO2 ABG 46.6 mmHg (35.0-45.0); PO2 ABG 85.6 mmHg (80.0-100.0); PO2 FiO2 Ratio Arterial Blood 2.85 %; Total Hemoglobin 8.7 g/dL (12.0-18.0); pH ABG 7.395 (7.350-7.450)
[2022-08-15 05:46] LABS: Device VENTILATOR; Modified Allen's Test Pass; Site Drawn LEFT RADIAL
[2022-08-15 05:47] LABS: Arterial Blood Gas PEEP 5 cmH2O; Arterial Blood Gas Tidal Volume 500 ml; Arterial Blood Gas Vent Mode CMV; Arterial Blood Gas Ventilator rate 20 /MIN
[2022-08-15 05:49] LABS: Glucose Point of Care 193 mg/dl (65-105)
[2022-08-15 05:52] LABS: Alanine Aminotransferase 23 U/L (6-50); Albumin Level 2.9 g/dL (3.5-5.1); Alkaline Phosphatase 44 U/L (38-126); Anion Gap 2 mmol/L (8-16); Aspartate Amino Transferase 21 U/L (17-59); Bilirubin,Total 0.3 mg/dL (0.2-1.3); Blood Urea Nitrogen 49 mg/dL (9-20); Calcium 7.5 mg/dL (8.4-10.2); Carbon Dioxide 31 mmol/L (22-30); Chloride 104 mmol/L (98-107); Estimated CRCL calculation 57 ml/min; Estimated Glomerular Filt Rate > 60; Glucose 158 mg/dL (65-110); Magnesium 2.9 mg/dL (1.6-2.3); Phosphorus 2.7 mg/dL (2.5-4.5); Potassium 4.1 mmol/L (3.4-5.0); Sodium 137 mmol/L (137-145)
[2022-08-15 06:52] LABS: Total Cells Counted 100
[2022-08-15 06:53] LABS: Anisocytosis 3+ (NORMAL); Band Neutrophils Percent 3 % (0-6); Hypochromasia 2+ (NORMAL); Lymphocytes Percent Manual 5 % (18-44); Monocytes Absolute Manual 1.41 K/mm3 (0.1-0.90); Monocytes Percent Manual 10 % (3-9); Neutrophils Absolute Manual 11.98 K/mm3 (1.3-6.7); Neutrophils Percent Manual 82 % (46-73); Nucleated Red Blood Cells 4 %; Platelet Estimate Adequate (Adequate); Schistocytes None Seen (NORMAL)
[2022-08-15 07:33] LABS: Glucose Point of Care 200 mg/dl (65-105)
[2022-08-15] MEDS: BUDESONIDE RESPULE NEB 0.5 MG/2 ML AMP INHALATION ×2 (07:38→20:18)
[2022-08-15] MEDS: DOCUSATE SODIUM LIQ 100 MG/10 ML UDC PO ×2 (08:51→20:27)
[2022-08-15] MEDS: MINERAL OIL/WHITE PETROLATUM OINTMENT 1 APPLIC EACH EYE ×2 (08:52→20:22)
[2022-08-15] MEDS: methylPREDNISolone SOD SUCC 125 MG VIAL 80 MG IV PUSH (08:52)
[2022-08-15] MEDS: ASPIRIN 325 MG TABLET FEED TUBE (08:52)
[2022-08-15] MEDS: METOPROLOL TARTRATE 50 MG TAB PO (08:52)
[2022-08-15] MEDS: PANTOPRAZOLE SODIUM IV 40 MG VIAL IV PUSH ×2 (08:52→20:22)
[2022-08-15] MEDS: FONDAPARINUX SODIUM 2.5 MG/0.5 ML SYRINGE SUB-Q (08:53)
[2022-08-15] MEDS: LACTULOSE 20 GM/30 ML UDC PO (08:53)
[2022-08-15] MEDS: polyethylene glycoL 3350 17 GM POWD.PACK PO (08:54)
--- NOTE | 2022-08-15 09:30 | WPDINTPN ---
Progress Note: A&P Assessment and Plan (1) Respiratory failure: Qualifiers: Chronicity: acute on chronic Respiratory failure complication: hypercapnia Qualified Code(s): J96.22 - Acute and chronic respiratory failure with hypercapnia Code(s): J96.90 - Respiratory failure, unspecified, unspecified whether with hypoxia or hypercapnia Status: Acute Assessment and Plan: Acute on chronic hypercapnic respiratory failure likely related to COPD, possible volume overload, possible pneumonia patient has cough, shortness of breath, leukocytosis -08/09: patient placed on BiPAP, repeat ABGs on BiPAP did not change that patient was more somnolent and not arousable -intubated on 08/10/2019 -currently on CMV mode of ventilation, peep of 5, 30% FiO2, adequate O2 sats -ABGs reviewed -chest x-ray reviewed -continue bronchodilators and budesonide -continue Solu-Medrol q.a.m. -continue cefepime, azithromycin.(08/09) - DC vancomycin (08/09) -08/09: MRSA screen was positive but sputum culture has been negative -08/09: Blood negative x2 so far -08/09: Urine cultures negative -08/10: Sputum culture negative so far -08/14 : I perform sedation holiday to evaluate patient for weaning trial but patient became tachypneic with increased work of breathing and a synchronous with the ventilator. Sedation holiday was aborted. I will continue propofol and transition patient from fentanyl to Precedex to treat any anxiety component 08/15: switched propofol to Precedex, patient was awake, followed commands, nodded to questions. Placed on pressure support ventilation 18/08 patient was tachypneic, low tidal volumes, tachycardic and hypertensive. Try to place patient on ASV mode of ventilation patient again was tachypneic, low tidal volumes an alarming the ventilator. Switched back to CMV mode (2) Chest pain: Qualifiers: Chest pain type: unspecified Qualified Code(s): R07.9 - Chest pain, unspecified Code(s): R07.9 - Chest pain, unspecified Status: Acute Assessment and Plan: Patient presented with chest pain at the outside hospital associated with shortness of breath, diaphoresis, nausea. -EKG at the outside hospital and at [facility] showed atrial flutter/fib with RVR -currently in sinus tachycardia -troponin negative x3. -off note patient had stress test in March 2019 that was unremarkable which was obtained from the ER note from the outside hospital -cardiology following the patient, -08/09 echocardiogram Summary ? 1. Technically challenging examination in this intubated patient. ? 2. Definity contrast injected to improve visualization. ? 3. Hyperdynamic appearing left ventricular systolic function with grade 1 diastolic noncompliance. ? 4. No significant valvular dysfunction identified. (3) COPD (chronic obstructive pulmonary disease): Qualifiers: COPD type: COPD with acute exacerbation Qualified Code(s): J44.1 - Chronic obstructive pulmonary disease with (acute) exacerbation Code(s): J44.9 - Chronic obstructive pulmonary disease, unspecified Status: Acute Assessment and Plan: See above (4) Urinary tract infection: Qualifiers: Urinary tract infection type: acute cystitis Hematuria presence: without hematuria Qualified Code(s): N30.00 - Acute cystitis without hematuria Code(s): N39.0 - Urinary tract infection, site not specified Status: Acute Assessment and Plan: UA reflective of UTI -continue antibiotics as above -urine cultures negative (5) Afib: Qualifiers: Atrial fibrillation type: paroxysmal Qualified Code(s): I48.0 - Paroxysmal atrial fibrillation Code(s): I48.91 - Unspecified atrial fibrillation Status: Acute Assessment and Plan: Patient also has paroxysmal AFib, on apixaban at home -ordered metoprolol p.r.n. -currently in sinus rhythm, rate controlled -08/12: hold apixaban as maeve
--- NOTE | 2022-08-15 11:12 | PCFNICU ---
ICU Rounding Note: Pt current nutrition is Vital AF 1.2 at 65 ml/hr. Last recorded weight is 91.6 kg. Bowel Motility:+Bm reported 08/14 Labs Reviewed:Mg 2.9,Glu 159, Alb 2.9 Meds Noted:Reglan,Precedex, Propofol 10 dalm=260 kcals, Colace, Miralax, Protonix Skin:WNL Additional Notes: Patient remains on mechanical vent and tube feedings of Vital AF 1.2 at 65 ml/hr and tolerating per nursing. Flush 30 ml q 4 hours. Tube feedings remain appropriate. Agree with diet orders. Will monitor in ICU rounds and reassess every Friday and Friday.
[2022-08-15 12:24] LABS: Glucose Point of Care 295 mg/dl (65-105)
[2022-08-15] MEDS: INSULIN ASPART (*BKC) 100 UNITS/ML SUB-Q ×2 (12:27→16:04)
[2022-08-15] MEDS: dexmedeTOMIDine 400 MCG/100 ML 400 MCG/100 ML BAG 22.1 MCG IV CONT ×2 (13:56→18:52)
[2022-08-15 16:08] LABS: Glucose Point of Care 296 mg/dl (65-105)
--- NOTE | 2022-08-15 17:59 | WPDPN ---
Progress Note: A&P Assessment and Plan (1) Chest pain: Qualifiers: Chest pain type: unspecified Qualified Code(s): R07.9 - Chest pain, unspecified Code(s): R07.9 - Chest pain, unspecified Status: Acute Assessment and Plan: Monitor (2) Respiratory failure: Qualifiers: Chronicity: acute on chronic Respiratory failure complication: hypercapnia Qualified Code(s): J96.22 - Acute and chronic respiratory failure with hypercapnia Code(s): J96.90 - Respiratory failure, unspecified, unspecified whether with hypoxia or hypercapnia Status: Acute Assessment and Plan: Acute on chronic hypercapnic respiratory failure likely related to COPD, possible volume overload, possible pneumonia patient has cough, shortness of breath, leukocytosis -08/09: patient placed on BiPAP, repeat ABGs on BiPAP did not change that patient was more somnolent and not arousable -intubated on 08/10/2019 -intubated currently, managed per ICU -continue cefepime, azithromycin and vancomycin (08/09), will deescalate once cultures are resulted -08/09: MRSA screen positive -08/09: Blood negative x2 so far -08/09: Urine cultures negative 06/15/2022 inteval history: Patient with exacerbation of COPD hypercarbic respiratory failure remains intubated suspect patient may have pneumonia and being treated Cefepime and azithromycin, today patient was given trial of weaning off the ventilator was unable to tolerate, unable to provide any review of symptoms patient is seen by porter head and appreciate. (3) COPD (chronic obstructive pulmonary disease): Qualifiers: COPD type: COPD with acute exacerbation Qualified Code(s): J44.1 - Chronic obstructive pulmonary disease with (acute) exacerbation Code(s): J44.9 - Chronic obstructive pulmonary disease, unspecified Status: Acute Assessment and Plan: Continue bronchodilators, steroids, antibiotics (4) Urinary tract infection: Qualifiers: Hematuria presence: without hematuria Urinary tract infection type: acute cystitis Qualified Code(s): N30.00 - Acute cystitis without hematuria Code(s): N39.0 - Urinary tract infection, site not specified Status: Acute Assessment and Plan: UA reflective of UTI -continue antibiotics as above -urine cultures negative (5) Afib: Qualifiers: Atrial fibrillation type: paroxysmal Qualified Code(s): I48.0 - Paroxysmal atrial fibrillation Code(s): I48.91 - Unspecified atrial fibrillation Status: Acute Assessment and Plan: Patient also has paroxysmal AFib, on apixaban at home -ordered metoprolol p.r.n. -continue apixaban -currently in sinus rhythm, rate controlled (6) CKD (chronic kidney disease) stage 3, GFR 30-59 ml/min: Code(s): N18.30 - Chronic kidney disease, stage 3 unspecified Status: Acute Assessment and Plan: Patient has history of chronic kidney disease stage 3 -continue to monitor urine output, renal function and electrolytes -creatinine on admission was 0.80, -/06: decreased urine output since admission elevated creatinine, elevated lactic acid -patient given small IV fluid bolus and gentle hydration -creatinine improved this morning, lactic acid has resolved, 1.0 this morning (7) Chronic pain disorder: Code(s): G89.4 - Chronic pain syndrome Status: Acute Assessment and Plan: History of chronic pain syndrome on chronic opiates, this could be the 1 of the causes of hypercapnic respiratory failure (8) GERD (gastroesophageal reflux disease): Qualifiers: Esophagitis presence: esophagitis presence not specified Qualified Code(s): K21.9 - Gastro-esophageal reflux disease without esophagitis Code(s): K21.9 - Gastro-esophageal reflux disease without esophagitis Status: Acute Assessment and Plan: Continue Protonix (9) Abdominal distension: Code(s): R14.0 - Abd
[2022-08-15 20:24] LABS: Glucose Point of Care 198 mg/dl (65-105)
[2022-08-15] MEDS: dexmedeTOMIDine 400 MCG/100 ML 400 MCG/100 ML BAG 26.52 MCG IV CONT (22:45)
[2022-08-16] VITALS (49 sets, daily range): BP systolic 106–148; BP diastolic 59–88; PULSE 66–100; RESP 10–23; TEMP 36.8–38; O2SAT 97–100
[2022-08-16 00:04] LABS: Glucose Point of Care 152 mg/dl (65-105)
[2022-08-16] MEDS: METOCLOPRAMIDE HCL INJ 10 MG/2 ML VIAL IV PUSH ×4 (00:04→17:17)
[2022-08-16] MEDS: dexmedeTOMIDine 400 MCG/100 ML 400 MCG/100 ML BAG 28.73 MCG IV CONT ×3 (01:20→17:17)
--- NOTE | 2022-08-16 01:35 | PC.NURSE ---
Around 2219, patient was noted to have thick, garcia secretions in ETT. Tube feeds held and copious secretions suctioned from ETT. Patient noted to have abnormal jerking movements to upper body and bilateral upper extremities. Patient VTE then increased to >1000. Respiratory Therapy called to bedside. Patient bagged while Diane exchanged flow meter on ventilator. Shreya HERRING notified of series of events. KUB and CXR obtained per MD order-see results. Head CT obtained per MD order. Tube feeds held overnight and NG attached to low-intermittent suction. Patient continues to have abnormal jerking movements, now of all extremities. Pupils remain sluggish, equal and reactive to light. Patient not following any commands at this time. Will open eyes but does not track, does not squeeze hands, and will not move extremities appropriately. Will continue to monitor.
[2022-08-16] MEDS: LEVALBUTEROL NEB 1.25 MG/3 ML INHALATION ×4 (02:26→20:55)
[2022-08-16] MEDS: PROPOFOL IV EMULSION 100 ML 13.26 MG IV CONT (02:42)
[2022-08-16 04:40] LABS: Glucose Point of Care 169 mg/dl (65-105)
[2022-08-16] MEDS: CENTRAL LINE FLUSH 10 ML IV PUSH ×4 (05:21→20:32)
[2022-08-16 05:57] LABS: Alveolar/Arterial O2 Gradient 89.9 mmHg; Base Excess ABG 4.7 mEq/l (+/-2.0); Carboxyhemoglobin 0.3 % THb (0-2.0); Fractional Inspired Oxygen 30 %; HCO3 ABG 27.9 mEq/l (22.0-26.0); Methemoglobin ABG 0.1 %THb (0-1.5); Oxygen Content ABG 14.6 %vol (16.0-22.0); Oxygen Saturation ABG 96.9 % (95.0-100.0); Oxyhemoglobin 95.4 % THb (90.0-100.0); PO2 ABG 81.7 mmHg (80.0-100.0); PO2 FiO2 Ratio Arterial Blood 2.72 %; Reduced Hemoglobin 4.2 %THb (0-5.0); Total Hemoglobin 10.8 g/dL (12.0-18.0); pH ABG 7.507 (7.350-7.450)
[2022-08-16 05:58] LABS: Arterial Blood Gas PEEP 5 cmH2O; Arterial Blood Gas Tidal Volume 500 ml; Arterial Blood Gas Vent Mode CMV; Arterial Blood Gas Ventilator rate 20 /MIN; Device VENTILATOR; Modified Allen's Test Pass; Site Drawn RIGHT RADIAL
[2022-08-16 06:27] LABS: Hemoglobin 7.7 g/dL (14.0-18.0); Mean Corpuscular HGB Conc 28.5 g/dl (32-36); Mean Corpuscular Volume 80.6 fl (80-100); Mean Platelet Volume 8.8 fl (7.4-10.4); Platelet Count Result 251 k/mm3 (150-375); Red Blood Count 3.35 M/mm3 (4.6-6.20); Red Cell Distribution Width 24.3 % (11.5-14.5); White Blood Count 10.1 K/mm3 (4.5-10.0)
[2022-08-16 06:42] LABS: Alanine Aminotransferase 22 U/L (6-50); Albumin Level 3.2 g/dL (3.5-5.1); Alkaline Phosphatase 43 U/L (38-126); Anion Gap 1 mmol/L (8-16); Aspartate Amino Transferase 19 U/L (17-59); Bilirubin,Total 0.4 mg/dL (0.2-1.3); Blood Urea Nitrogen 47 mg/dL (9-20); Calcium 8.3 mg/dL (8.4-10.2); Carbon Dioxide 32 mmol/L (22-30); Chloride 106 mmol/L (98-107); Estimated CRCL calculation 57 ml/min; Estimated Glomerular Filt Rate > 60; Glucose 170 mg/dL (65-110); Magnesium 2.8 mg/dL (1.6-2.3); Phosphorus 2.1 mg/dL (2.5-4.5); Potassium 4.2 mmol/L (3.4-5.0); Sodium 139 mmol/L (137-145)
[2022-08-16 06:50] LABS: Anisocytosis 2+ (NORMAL); Band Neutrophils Percent 4 % (0-6); Eosinophils Percent Manual 1 % (0-4); Hypochromasia 3+ (NORMAL); Metamyelocytes Percent 2 %; Monocytes Percent Manual 4 % (3-9); Neutrophils Absolute Manual 8.88 K/mm3 (1.3-6.7); Neutrophils Percent Manual 84 % (46-73); Platelet Estimate Adequate (Adequate); Poikilocytosis 2+ (NORMAL); Total Cells Counted 100
[2022-08-16 06:51] LABS: Schistocytes None Seen (NORMAL); Target Cells 1+ (NORMAL); Tear Drop Cells 1+ (NORMAL)
[2022-08-16] MEDS: BUDESONIDE RESPULE NEB 0.5 MG/2 ML AMP INHALATION ×2 (07:52→20:55)
[2022-08-16] MEDS: dexmedeTOMIDine 400 MCG/100 ML 400 MCG/100 ML BAG 30.94 MCG IV CONT (08:15)
[2022-08-16] MEDS: methylPREDNISolone SOD SUCC 125 MG VIAL 80 MG IV PUSH (08:20)
[2022-08-16] MEDS: FONDAPARINUX SODIUM 2.5 MG/0.5 ML SYRINGE SUB-Q (08:20)
[2022-08-16] MEDS: DOCUSATE SODIUM LIQ 100 MG/10 ML UDC PO ×2 (08:20→20:30)
[2022-08-16] MEDS: ASPIRIN 325 MG TABLET FEED TUBE (08:20)
[2022-08-16] MEDS: POTASSIUM/PHOSPHORUS/SODIUM 1.5 GM PACKET 1 PACKET PO (08:20)
[2022-08-16] MEDS: PANTOPRAZOLE SODIUM IV 40 MG VIAL IV PUSH ×2 (08:21→20:31)
[2022-08-16] MEDS: LACTULOSE 20 GM/30 ML UDC PO (08:21)
[2022-08-16] MEDS: MINERAL OIL/WHITE PETROLATUM OINTMENT 1 APPLIC EACH EYE ×2 (08:21→20:31)
[2022-08-16] MEDS: polyethylene glycoL 3350 17 GM POWD.PACK PO (08:23)
[2022-08-16 08:26] LABS: Glucose Point of Care 190 mg/dl (65-105)
[2022-08-16] MEDS: METOPROLOL TARTRATE 50 MG TAB PO ×2 (08:26→20:31)
--- NOTE | 2022-08-16 09:37 | WPDINTPN ---
Progress Note: A&P Assessment and Plan (1) Respiratory failure: Qualifiers: Chronicity: acute on chronic Respiratory failure complication: hypercapnia Qualified Code(s): J96.22 - Acute and chronic respiratory failure with hypercapnia Code(s): J96.90 - Respiratory failure, unspecified, unspecified whether with hypoxia or hypercapnia Status: Acute Assessment and Plan: Acute on chronic hypercapnic respiratory failure likely related to COPD, possible volume overload, possible pneumonia patient has cough, shortness of breath, leukocytosis -08/09: patient placed on BiPAP, repeat ABGs on BiPAP did not change that patient was more somnolent and not arousable -intubated on 08/10/2019 -currently on CMV mode of ventilation, peep of 5, 30% FiO2, adequate O2 sats -ABGs reviewed -chest x-ray reviewed -continue bronchodilators and budesonide -continue Solu-Medrol q.a.m. - status post 7 days course of cefepime, azithromycin. -08/09: MRSA screen was positive but sputum culture has been negative -08/09: Blood negative x2 so far -08/09: Urine cultures negative -08/10: Sputum culture negative so far -08/14 : I perform sedation holiday to evaluate patient for weaning trial but patient became tachypneic with increased work of breathing and a synchronous with the ventilator. Sedation holiday was aborted. I will continue propofol and transition patient from fentanyl to Precedex to treat any anxiety component 08/15: switched propofol to Precedex, patient was awake, followed commands, nodded to questions. Placed on pressure support ventilation 18/08 patient was tachypneic, low tidal volumes, tachycardic and hypertensive. Try to place patient on ASV mode of ventilation patient again was tachypneic, low tidal volumes an alarming the ventilator. Switched back to CMV mode 08/16: Patient currently on Precedex infusion,, awake, follows commands, propofol will be discontinued, patient on pressure support ventilation 03/11, he was only taking 6-7 breath, switched to ASV mode of ventilation. Once he is more awake, will switch him back to pressure support ventilation and SBT and evaluate for extubation (2) Chest pain: Qualifiers: Chest pain type: unspecified Qualified Code(s): R07.9 - Chest pain, unspecified Code(s): R07.9 - Chest pain, unspecified Status: Acute Assessment and Plan: Patient presented with chest pain at the outside hospital associated with shortness of breath, diaphoresis, nausea. -EKG at the outside hospital and at [facility] showed atrial flutter/fib with RVR -currently in sinus tachycardia -troponin negative x3. -off note patient had stress test in March 2019 that was unremarkable which was obtained from the ER note from the outside hospital -cardiology following the patient, -08/09 echocardiogram Summary ? 1. Technically challenging examination in this intubated patient. ? 2. Definity contrast injected to improve visualization. ? 3. Hyperdynamic appearing left ventricular systolic function with grade 1 diastolic noncompliance. ? 4. No significant valvular dysfunction identified. (3) COPD (chronic obstructive pulmonary disease): Qualifiers: COPD type: COPD with acute exacerbation Qualified Code(s): J44.1 - Chronic obstructive pulmonary disease with (acute) exacerbation Code(s): J44.9 - Chronic obstructive pulmonary disease, unspecified Status: Acute Assessment and Plan: See above (4) Urinary tract infection: Qualifiers: Urinary tract infection type: acute cystitis Hematuria presence: without hematuria Qualified Code(s): N30.00 - Acute cystitis without hematuria Code(s): N39.0 - Urinary tract infection, site not specified Status: Acute Assessment and Plan: UA reflective of UTI -continue antibiotics as above -urine cultures negative (5) Afib: Qualifiers: Atrial fibrillation type: paroxysmal
[2022-08-16 10:38] LABS: Haptoglobin 346 mg/dL (43-212)
[2022-08-16] MEDS: dexmedeTOMIDine 400 MCG/100 ML 400 MCG/100 ML BAG 26.52 MCG IV CONT ×2 (11:17→15:10)
[2022-08-16 11:51] LABS: Glucose Point of Care 233 mg/dl (65-105)
[2022-08-16] MEDS: INSULIN ASPART (*BKC) 100 UNITS/ML SUB-Q ×2 (12:03→17:11)
--- NOTE | 2022-08-16 12:27 | PCNFU ---
Nutrition Follow-Up Complete: Inadequate Oral Intake as related to mechanical ventilation as evidenced by NPO. Goal: Meet estimated nutritional needs. - Goal not currently being met as TF is on hold Pt current nutrition is Vital 1.2 @ goal rate 65 ml/h: 1716 kcals, 107 g protein, 1160 ml free water. ON HOLD for breathing trials. Nutrition recommendation: Restart tube feeding at same goal rate when medically appropriate. Agree with current orders Last recorded weight is 91.4 kg. Bowel Motility: BM+ - Diarrhea Labs Reviewed: Hgb 7.7, Hct 27, Na 3.2, BUN 47, PO4 2.1 Meds Noted: Reglan, precedex Skin: Edema Additional Notes: Tube feeds on hold while pt undergoes breathing trial. He had some garcia secretions over night that might have been tube feeding formula so the TF was paused at this time to restart after breathing trials. Will monitor in ICU rounds and reassess every Friday and Friday.
[2022-08-16 16:14] LABS: Glucose Point of Care 230 mg/dl (65-105)
[2022-08-16] MEDS: ETOMIDATE 20 MG/10 ML AMPUL IV PUSH (17:14)
[2022-08-16] MEDS: ROCURONIUM BROMIDE 50 MG/5 ML VIAL 40 MG IV PUSH (17:14)
[2022-08-16] MEDS: PROPOFOL IV EMULSION 100 ML 2.74 MG IV CONT (18:00)
--- NOTE | 2022-08-16 18:19 | WPDPN ---
Progress Note: A&P Assessment and Plan (1) Chest pain: Qualifiers: Chest pain type: unspecified Qualified Code(s): R07.9 - Chest pain, unspecified Code(s): R07.9 - Chest pain, unspecified Status: Acute Assessment and Plan: Monitor (2) Respiratory failure: Qualifiers: Chronicity: acute on chronic Respiratory failure complication: hypercapnia Qualified Code(s): J96.22 - Acute and chronic respiratory failure with hypercapnia Code(s): J96.90 - Respiratory failure, unspecified, unspecified whether with hypoxia or hypercapnia Status: Acute Assessment and Plan: Acute on chronic hypercapnic respiratory failure likely related to COPD, possible volume overload, possible pneumonia patient has cough, shortness of breath, leukocytosis -08/09: patient placed on BiPAP, repeat ABGs on BiPAP did not change that patient was more somnolent and not arousable -intubated on 08/10/2019 -intubated currently, managed per ICU -continue cefepime, azithromycin and vancomycin (08/09), will deescalate once cultures are resulted -08/09: MRSA screen positive -08/09: Blood negative x2 so far -08/09: Urine cultures negative 06/16/2022 inteval history: Patient with exacerbation of COPD hypercarbic respiratory failure remains intubated suspect patient may have pneumonia and being treated Cefepime and azithromycin, today patient self-extubated however was not able to breathe and patient was reintubated, patient awake and follows commands, will continue to monitor (3) COPD (chronic obstructive pulmonary disease): Qualifiers: COPD type: COPD with acute exacerbation Qualified Code(s): J44.1 - Chronic obstructive pulmonary disease with (acute) exacerbation Code(s): J44.9 - Chronic obstructive pulmonary disease, unspecified Status: Acute Assessment and Plan: Continue bronchodilators, steroids, antibiotics (4) Urinary tract infection: Qualifiers: Urinary tract infection type: acute cystitis Hematuria presence: without hematuria Qualified Code(s): N30.00 - Acute cystitis without hematuria Code(s): N39.0 - Urinary tract infection, site not specified Status: Acute Assessment and Plan: UA reflective of UTI -continue antibiotics as above -urine cultures negative (5) Afib: Qualifiers: Atrial fibrillation type: paroxysmal Qualified Code(s): I48.0 - Paroxysmal atrial fibrillation Code(s): I48.91 - Unspecified atrial fibrillation Status: Acute Assessment and Plan: Patient also has paroxysmal AFib, on apixaban at home -ordered metoprolol p.r.n. -continue apixaban -currently in sinus rhythm, rate controlled (6) CKD (chronic kidney disease) stage 3, GFR 30-59 ml/min: Code(s): N18.30 - Chronic kidney disease, stage 3 unspecified Status: Acute Assessment and Plan: Patient has history of chronic kidney disease stage 3 -continue to monitor urine output, renal function and electrolytes -creatinine on admission was 0.80, -/: decreased urine output since admission elevated creatinine, elevated lactic acid -patient given small IV fluid bolus and gentle hydration -creatinine improved this morning, lactic acid has resolved, 1.0 this morning (7) Chronic pain disorder: Code(s): G89.4 - Chronic pain syndrome Status: Acute Assessment and Plan: History of chronic pain syndrome on chronic opiates, this could be the 1 of the causes of hypercapnic respiratory failure (8) GERD (gastroesophageal reflux disease): Qualifiers: Esophagitis presence: esophagitis presence not specified Qualified Code(s): K21.9 - Gastro-esophageal reflux disease without esophagitis Code(s): K21.9 - Gastro-esophageal reflux disease without esophagitis Status: Acute Assessment and Plan: Continue Protonix (9) Abdominal distension: Code(s): R14.0 - Abdominal distensio
--- NOTE | 2022-08-16 20:15 | PM.CCN ---
Critical Care Event Note Summary Code activated: No (Self extubated himself) Narrative: this is a 72-year-old male patient who is in the intensive care unit for acute on chronic respiratory failure. The patient has acute on chronic hypercapnic respiratory failure likely related to COPD, possible fluid overload and possible pneumonia. The patient has been febrile today. The patient initially was placed on a BiPAP and he had no improvement so then he was placed on CMV mode ventilator. the patient had been intubated today but subsequently pulled out his ET tube. The patient was speaking in a few words. However he was tachycardic and hypertensive. His respirations were in the 30s and he was belly breathing. The patient had a trial. For extubation this morning and was not able to be extubated. I gave the patient a few minutes to see if he would be able to do okay without being ventilated. The patient continued to be tachycardia and hypertensive with tachypnea. I then reintubated the patient with the same size tube of 7.5 at the same depth of 28 at the lip With the same vent settings. Please see intubation note. Once the patient was intubated his heart rate came down. .This case had a high probability of a clinically significant, sudden, or life threatening deterioration of this patient's condition which required my full and direct attention, intervention and personal management. Critical care time: less than 30 mins
--- NOTE | 2022-08-16 20:20 | WPDPROCEDUR ---
Procedures Intubation Intubation Date: 08/16/22 Intubation Time: 16:30 A pre-procedural Time-Out was completed immediately before starting the procedure and confirmed: Patient Identification, Site, Procedure, Patient Position and the Availability of Requisite Equipment: Yes Sedative: etomidate Mg given: 20 Paralytic: rocuronium Mg given: 40 Laryngoscope: fiber optic video scope Assist device used: fiber optic device ET tube size: 7.5 Tube secured depth (cm): 28 Tube secured location: lips Tube placement confirmation: visualized tube passing through cords, equal breath sounds bilaterally, no breath sounds over epigastrium and confirmation by capnometry Patient tolerated procedure: no complications Intubation complications: none Additional comments: The endotracheal tube tip is 6.0 cm above the tessa. Will attempt to wound the ET tube to 29 cm.
[2022-08-16 20:58] LABS: Glucose Point of Care 185 mg/dl (65-105)
[2022-08-16 23:13] LABS: Triglycerides 133 mg/dL (<150)
[2022-08-17] VITALS (46 sets, daily range): BP systolic 95–160; BP diastolic 50–93; PULSE 61–95; RESP 10–25; TEMP 36.4–37.7; O2SAT 97–100
[2022-08-17] MEDS: CENTRAL LINE FLUSH 10 ML IV PUSH ×5 (00:02→20:49)
[2022-08-17] MEDS: METOCLOPRAMIDE HCL INJ 10 MG/2 ML VIAL IV PUSH ×4 (00:18→17:20)
[2022-08-17] MEDS: dexmedeTOMIDine 400 MCG/100 ML 400 MCG/100 ML BAG 26.52 MCG IV CONT ×6 (00:22→18:26)
[2022-08-17 01:02] LABS: Glucose Point of Care 172 mg/dl (65-105)
[2022-08-17] MEDS: LEVALBUTEROL NEB 1.25 MG/3 ML INHALATION ×4 (02:04→20:02)
[2022-08-17 03:10] LABS: Glucose Point of Care 191 mg/dl (65-105)
[2022-08-17 03:11] LABS: Eosinophils Absolute Auto 0.1 K/mm3 (0-0.3); Eosinophils Percent Auto 1.3 % (0-4.4); Hematocrit 25.1 % (42.0-52.0); Hemoglobin 7.2 g/dL (14.0-18.0); Immature Granulocyte Percent A 3.9 % (0-0.5); Lymphocytes Absolute Auto 0.83 K/mm3 (0.9-3.2); Lymphocytes Percent Auto 8.1 % (18.3-44.2); Mean Corpuscular HGB Conc 28.7 g/dl (32-36); Mean Corpuscular Hemoglobin 23.3 pg (26-34); Mean Corpuscular Volume 81.2 fl (80-100); Mean Platelet Volume 8.9 fl (7.4-10.4); Monocytes Absolute Auto 0.8 K/mm3 (0.1-0.6); Monocytes Percent Auto 7.8 % (2.6-8.5); Neutrophils Absolute Auto 8.1 K/mm3 (1.3-6.7); Neutrophils Percent Auto 78.9 % (45.5-73.1); Nucleated Red Blood Cells Absolute Auto 0.1 K/mm3 (0.0-0.012); Nucleated Red Blood Cells Perc 0.6 % (0.0-0.2); Platelet Count Result 230 k/mm3 (150-375); Red Blood Count 3.09 M/mm3 (4.6-6.20); Red Cell Distribution Width 24.8 % (11.5-14.5); White Blood Count 10.3 K/mm3 (4.5-10.0)
[2022-08-17 03:21] LABS: Alanine Aminotransferase 23 U/L (6-50); Albumin Level 3.2 g/dL (3.5-5.1); Alkaline Phosphatase 44 U/L (38-126); Anion Gap 2 mmol/L (8-16); Aspartate Amino Transferase 21 U/L (17-59); Bilirubin,Total 0.4 mg/dL (0.2-1.3); Blood Urea Nitrogen 46 mg/dL (9-20); Carbon Dioxide 33 mmol/L (22-30); Chloride 106 mmol/L (98-107); Estimated CRCL calculation 63 ml/min; Estimated Glomerular Filt Rate > 60; Glucose 200 mg/dL (65-110); Magnesium 2.7 mg/dL (1.6-2.3); Phosphorus 2.3 mg/dL (2.5-4.5); Potassium 3.7 mmol/L (3.4-5.0); Sodium 141 mmol/L (137-145)
[2022-08-17 03:40] LABS: Anisocytosis 2+ (NORMAL); Hypochromasia 1+ (NORMAL); Microcytosis 1+ (NORMAL); Platelet Estimate Adequate (Adequate); Schistocytes None Seen (NORMAL)
[2022-08-17 05:49] LABS: Alveolar/Arterial O2 Gradient 75.1 mmHg; Base Excess ABG 4.1 mEq/l (+/-2.0); Carboxyhemoglobin 0.3 % THb (0-2.0); Fractional Inspired Oxygen 30 %; HCO3 ABG 28.3 mEq/l (22.0-26.0); Methemoglobin ABG 0.3 %THb (0-1.5); Oxygen Content ABG 12.9 %vol (16.0-22.0); Oxygen Saturation ABG 97.3 % (95.0-100.0); Oxyhemoglobin 95.5 % THb (90.0-100.0); PO2 ABG 90.6 mmHg (80.0-100.0); PO2 FiO2 Ratio Arterial Blood 3.02 %; Reduced Hemoglobin 3.9 %THb (0-5.0); Total Hemoglobin 9.5 g/dL (12.0-18.0); pH ABG 7.457 (7.350-7.450)
[2022-08-17 05:50] LABS: Arterial Blood Gas PEEP 5 cmH2O; Arterial Blood Gas Vent Mode CMV; Arterial Blood Gas Ventilator rate 20 /MIN; Device VENTILATOR; Modified Allen's Test Pass; Site Drawn LEFT RADIAL
[2022-08-17 05:51] LABS: Arterial Blood Gas Tidal Volume 500 ml
[2022-08-17] MEDS: BUDESONIDE RESPULE NEB 0.5 MG/2 ML AMP INHALATION ×2 (07:41→20:02)
[2022-08-17] MEDS: INSULIN ASPART (*BKC) 100 UNITS/ML SUB-Q ×4 (07:48→19:47)
[2022-08-17 07:55] LABS: Glucose Point of Care 232 mg/dl (65-105)
[2022-08-17] MEDS: PROPOFOL IV EMULSION 100 ML 2.74 MG IV CONT (08:03)
[2022-08-17] MEDS: DOCUSATE SODIUM LIQ 100 MG/10 ML UDC PO ×2 (08:18→20:01)
[2022-08-17] MEDS: ASPIRIN 325 MG TABLET FEED TUBE (08:18)
[2022-08-17] MEDS: FONDAPARINUX SODIUM 2.5 MG/0.5 ML SYRINGE SUB-Q (08:19)
[2022-08-17] MEDS: LACTULOSE 20 GM/30 ML UDC PO (08:19)
[2022-08-17] MEDS: methylPREDNISolone SOD SUCC 125 MG VIAL 80 MG IV PUSH (08:19)
[2022-08-17] MEDS: MINERAL OIL/WHITE PETROLATUM OINTMENT 1 APPLIC EACH EYE ×2 (08:20→20:01)
[2022-08-17] MEDS: METOPROLOL TARTRATE 50 MG TAB PO ×2 (08:20→20:01)
[2022-08-17] MEDS: PANTOPRAZOLE SODIUM IV 40 MG VIAL IV PUSH ×2 (08:20→20:01)
[2022-08-17] MEDS: polyethylene glycoL 3350 17 GM POWD.PACK PO (08:21)
[2022-08-17] MEDS: ACETAMINOPHEN ELIXIR 325 MG/10.15 ML UDC 650 MG FEED TUBE (09:52)
--- NOTE | 2022-08-17 11:06 | WPDINTPN ---
Progress Note: A&P Assessment and Plan (1) Respiratory failure: Qualifiers: Chronicity: acute on chronic Respiratory failure complication: hypercapnia Qualified Code(s): J96.22 - Acute and chronic respiratory failure with hypercapnia Code(s): J96.90 - Respiratory failure, unspecified, unspecified whether with hypoxia or hypercapnia Status: Acute Assessment and Plan: Acute on chronic hypercapnic respiratory failure likely related to COPD, possible volume overload, possible pneumonia patient has cough, shortness of breath, leukocytosis -08/09: patient placed on BiPAP, repeat ABGs on BiPAP did not change that patient was more somnolent and not arousable -intubated on 08/10/2019 -currently on CMV mode of ventilation, peep of 5, 30% FiO2, adequate O2 sats -ABGs reviewed -chest x-ray reviewed -continue bronchodilators and budesonide -continue Solu-Medrol q.a.m. - status post 7 days course of cefepime, azithromycin. -08/09: MRSA screen was positive but sputum culture has been negative -08/09: Blood negative x2 so far -08/09: Urine cultures negative -08/10: Sputum culture negative so far 08/16/2022: Patient self-extubated, was re-intubated immediately as he was tachypneic, using abdominal muscles to breathe, hypoxia, and was in respiratory distress Continue Precedex and propofol infusion for now wean propofol and try on SBT in a.m. (2) Chest pain: Qualifiers: Chest pain type: unspecified Qualified Code(s): R07.9 - Chest pain, unspecified Code(s): R07.9 - Chest pain, unspecified Status: Acute Assessment and Plan: Patient presented with chest pain at the outside hospital associated with shortness of breath, diaphoresis, nausea. -EKG at the outside hospital and at [facility] showed atrial flutter/fib with RVR -currently in sinus tachycardia -troponin negative x3. -off note patient had stress test in March 2019 that was unremarkable which was obtained from the ER note from the outside hospital -cardiology following the patient, -08/09 echocardiogram Summary ? 1. Technically challenging examination in this intubated patient. ? 2. Definity contrast injected to improve visualization. ? 3. Hyperdynamic appearing left ventricular systolic function with grade 1 diastolic noncompliance. ? 4. No significant valvular dysfunction identified. (3) COPD (chronic obstructive pulmonary disease): Qualifiers: COPD type: COPD with acute exacerbation Qualified Code(s): J44.1 - Chronic obstructive pulmonary disease with (acute) exacerbation Code(s): J44.9 - Chronic obstructive pulmonary disease, unspecified Status: Acute Assessment and Plan: See above (4) Urinary tract infection: Qualifiers: Urinary tract infection type: acute cystitis Hematuria presence: without hematuria Qualified Code(s): N30.00 - Acute cystitis without hematuria Code(s): N39.0 - Urinary tract infection, site not specified Status: Acute Assessment and Plan: UA reflective of UTI -continue antibiotics as above -urine cultures negative (5) Afib: Qualifiers: Atrial fibrillation type: paroxysmal Qualified Code(s): I48.0 - Paroxysmal atrial fibrillation Code(s): I48.91 - Unspecified atrial fibrillation Status: Acute Assessment and Plan: Patient also has paroxysmal AFib, on apixaban at home -ordered metoprolol p.r.n. -currently in sinus rhythm, rate controlled -08/12: hold apixaban as patient is anemic and dropped his hemoglobin to 7.0 5/10 start aspirin (6) CKD (chronic kidney disease) stage 3, GFR 30-59 ml/min: Code(s): N18.30 - Chronic kidney disease, stage 3 unspecified Status: Acute Assessment and Plan: Patient has history of chronic kidney disease stage 3 -continue to monitor urine output, renal function and electrolytes -creatinine on admission was 0.80, -08/10: decreased urine output s
[2022-08-17 12:10] LABS: Glucose Point of Care 270 mg/dl (65-105)
--- NOTE | 2022-08-17 13:09 | WPDPN ---
Progress Note: A&P Assessment and Plan (1) Chest pain: Qualifiers: Chest pain type: unspecified Qualified Code(s): R07.9 - Chest pain, unspecified Code(s): R07.9 - Chest pain, unspecified Status: Acute Assessment and Plan: Monitor (2) Respiratory failure: Qualifiers: Chronicity: acute on chronic Respiratory failure complication: hypercapnia Qualified Code(s): J96.22 - Acute and chronic respiratory failure with hypercapnia Code(s): J96.90 - Respiratory failure, unspecified, unspecified whether with hypoxia or hypercapnia Status: Acute Assessment and Plan: Acute on chronic hypercapnic respiratory failure likely related to COPD, possible volume overload, possible pneumonia patient has cough, shortness of breath, leukocytosis -08/09: patient placed on BiPAP, repeat ABGs on BiPAP did not change that patient was more somnolent and not arousable -intubated on 08/10/2019 -intubated currently, managed per ICU -continue cefepime, azithromycin and vancomycin (08/09), will deescalate once cultures are resulted -08/09: MRSA screen positive -08/09: Blood negative x2 so far -08/09: Urine cultures negative 06/17/2022 inteval history: Patient with exacerbation of COPD hypercarbic respiratory failure remains intubated suspect patient may have pneumonia and being treated Cefepime and azithromycin, on 08/16 patient self-extubated however was not able to breathe and patient was reintubated, patient awake and follows commands, discussed with speech writer patient unable to tolerate weaning trial, will continue to monitor (3) COPD (chronic obstructive pulmonary disease): Qualifiers: COPD type: COPD with acute exacerbation Qualified Code(s): J44.1 - Chronic obstructive pulmonary disease with (acute) exacerbation Code(s): J44.9 - Chronic obstructive pulmonary disease, unspecified Status: Acute Assessment and Plan: Continue bronchodilators, steroids, antibiotics (4) Urinary tract infection: Qualifiers: Urinary tract infection type: acute cystitis Hematuria presence: without hematuria Qualified Code(s): N30.00 - Acute cystitis without hematuria Code(s): N39.0 - Urinary tract infection, site not specified Status: Acute Assessment and Plan: UA reflective of UTI -continue antibiotics as above -urine cultures negative (5) Afib: Qualifiers: Atrial fibrillation type: paroxysmal Qualified Code(s): I48.0 - Paroxysmal atrial fibrillation Code(s): I48.91 - Unspecified atrial fibrillation Status: Acute Assessment and Plan: Patient also has paroxysmal AFib, on apixaban at home -ordered metoprolol p.r.n. -continue apixaban -currently in sinus rhythm, rate controlled (6) CKD (chronic kidney disease) stage 3, GFR 30-59 ml/min: Code(s): N18.30 - Chronic kidney disease, stage 3 unspecified Status: Acute Assessment and Plan: Patient has history of chronic kidney disease stage 3 -continue to monitor urine output, renal function and electrolytes -creatinine on admission was 0.80, -08/10: decreased urine output since admission elevated creatinine, elevated lactic acid -patient given small IV fluid bolus and gentle hydration -creatinine improved this morning, lactic acid has resolved, 1.0 this morning (7) Chronic pain disorder: Code(s): G89.4 - Chronic pain syndrome Status: Acute Assessment and Plan: History of chronic pain syndrome on chronic opiates, this could be the 1 of the causes of hypercapnic respiratory failure (8) GERD (gastroesophageal reflux disease): Qualifiers: Esophagitis presence: esophagitis presence not specified Qualified Code(s): K21.9 - Gastro-esophageal reflux disease without esophagitis Code(s): K21.9 - Gastro-esophageal reflux disease without esophagitis Status: Acute Assessment and Plan: Continue Proton
[2022-08-17 16:38] LABS: Glucose Point of Care 250 mg/dl (65-105)
[2022-08-17 19:43] LABS: Glucose Point of Care 229 mg/dl (65-105)
--- NOTE | 2022-08-17 20:12 | PCRCNOTE ---
Pt very sleepy low rate alarm of 8 bpm was alarming. Pt switched back to CMV 20/500/5/30%. RN informed.
[2022-08-18] VITALS (62 sets, daily range): BP systolic 94–179; BP diastolic 56–93; PULSE 63–145; RESP 18–35; TEMP 36.6–37.6; O2SAT 96–100
[2022-08-18] MEDS: METOCLOPRAMIDE HCL INJ 10 MG/2 ML VIAL IV PUSH ×5 (00:15→23:14)
[2022-08-18 00:21] LABS: Glucose Point of Care 153 mg/dl (65-105)
[2022-08-18] MEDS: PROPOFOL IV EMULSION 100 ML 20 MG IV CONT (02:10)
[2022-08-18] MEDS: LEVALBUTEROL NEB 1.25 MG/3 ML INHALATION ×4 (02:20→20:01)
[2022-08-18 04:41] LABS: Glucose Point of Care 135 mg/dl (65-105)
[2022-08-18 04:44] LABS: Basophils Percent Auto 0.1 % (0.2-1.2); Eosinophils Absolute Auto 0.1 K/mm3 (0-0.3); Hematocrit 24.9 % (42.0-52.0); Hemoglobin 7.2 g/dL (14.0-18.0); Immature Granulocyte Percent A 2.2 % (0-0.5); Lymphocytes Absolute Auto 0.66 K/mm3 (0.9-3.2); Lymphocytes Percent Auto 7.2 % (18.3-44.2); Mean Corpuscular HGB Conc 28.9 g/dl (32-36); Mean Corpuscular Hemoglobin 23.9 pg (26-34); Mean Corpuscular Volume 82.7 fl (80-100); Mean Platelet Volume 8.8 fl (7.4-10.4); Monocytes Absolute Auto 0.9 K/mm3 (0.1-0.6); Monocytes Percent Auto 9.2 % (2.6-8.5); Neutrophils Absolute Auto 7.4 K/mm3 (1.3-6.7); Neutrophils Percent Auto 80.3 % (45.5-73.1); Nucleated Red Blood Cells Perc 0.4 % (0.0-0.2); Platelet Count Result 231 k/mm3 (150-375); Red Blood Count 3.01 M/mm3 (4.6-6.20); Red Cell Distribution Width 25.7 % (11.5-14.5); White Blood Count 9.2 K/mm3 (4.5-10.0)
[2022-08-18 04:53] LABS: Alanine Aminotransferase 38 U/L (6-50); Albumin Level 3.1 g/dL (3.5-5.1); Alkaline Phosphatase 43 U/L (38-126); Anion Gap 4 mmol/L (8-16); Aspartate Amino Transferase 31 U/L (17-59); Bilirubin,Total 0.3 mg/dL (0.2-1.3); Blood Urea Nitrogen 42 mg/dL (9-20); Calcium 7.6 mg/dL (8.4-10.2); Carbon Dioxide 32 mmol/L (22-30); Chloride 106 mmol/L (98-107); Estimated CRCL calculation 60 ml/min; Estimated Glomerular Filt Rate > 60; Glucose 165 mg/dL (65-110); Magnesium 2.7 mg/dL (1.6-2.3); Phosphorus 2.3 mg/dL (2.5-4.5); Potassium 3.6 mmol/L (3.4-5.0); Sodium 142 mmol/L (137-145)
[2022-08-18 05:10] LABS: Anisocytosis 1+ (NORMAL); Hypochromasia 1+ (NORMAL); Platelet Estimate Adequate (Adequate); Schistocytes None Seen (NORMAL)
[2022-08-18 05:35] LABS: Alveolar/Arterial O2 Gradient 82.7 mmHg; Carboxyhemoglobin 0.3 % THb (0-2.0); Fractional Inspired Oxygen 30 %; HCO3 ABG 30.6 mEq/l (22.0-26.0); Methemoglobin ABG 0.5 %THb (0-1.5); Oxygen Content ABG 10.2 %vol (16.0-22.0); Oxygen Saturation ABG 97.2 % (95.0-100.0); Oxyhemoglobin 95.5 % THb (90.0-100.0); PO2 ABG 85.4 mmHg (80.0-100.0); PO2 FiO2 Ratio Arterial Blood 2.85 %; Reduced Hemoglobin 3.7 %THb (0-5.0)
[2022-08-18 05:46] LABS: pH ABG 7.512 (7.350-7.450)
[2022-08-18 05:47] LABS: Arterial Blood Gas PEEP 5 cmH2O; Arterial Blood Gas Vent Mode CMV; Arterial Blood Gas Ventilator rate 22 /MIN; Device VENTILATOR; Modified Allen's Test Pass; Site Drawn RIGHT RADIAL; Total Hemoglobin 7.5 g/dL (12.0-18.0)
[2022-08-18 05:48] LABS: Arterial Blood Gas Tidal Volume 500 ml
[2022-08-18] MEDS: CENTRAL LINE FLUSH 10 ML IV PUSH ×3 (06:36→20:14)
[2022-08-18] MEDS: BUDESONIDE RESPULE NEB 0.5 MG/2 ML AMP INHALATION ×2 (07:00→20:01)
[2022-08-18] MEDS: ASPIRIN 325 MG TABLET FEED TUBE (08:00)
--- NOTE | 2022-08-18 08:07 | PC.NURSE ---
Precedex gtt found at 0.4 mcg/kg/hr at 0700 during morning assessment. Patient Alert and calm per protocol orders. Precedex gtt. left at 0.4 mcg/kg/hr. RN to titrate as needed per protocol.
[2022-08-18 08:13] LABS: Glucose Point of Care 170 mg/dl (65-105)
[2022-08-18] MEDS: PROPOFOL IV EMULSION 100 ML 2.74 MG IV CONT (08:25)
[2022-08-18] MEDS: POTASSIUM CHLORIDE 20 MEQ PACKET (FOR LIQUID) 40 MEQ FEED TUBE (08:26)
--- NOTE | 2022-08-18 08:36 | WPDINTPN ---
Progress Note: A&P Assessment and Plan (1) Respiratory failure: Qualifiers: Chronicity: acute on chronic Respiratory failure complication: hypercapnia Qualified Code(s): J96.22 - Acute and chronic respiratory failure with hypercapnia Code(s): J96.90 - Respiratory failure, unspecified, unspecified whether with hypoxia or hypercapnia Status: Acute Assessment and Plan: Acute on chronic hypercapnic respiratory failure likely related to COPD, possible volume overload, possible pneumonia patient has cough, shortness of breath, leukocytosis -08/09: patient placed on BiPAP, repeat ABGs on BiPAP did not change that patient was more somnolent and not arousable -intubated on 08/10/2019 -currently on CMV mode of ventilation, peep of 5, 30% FiO2, adequate O2 sats -ABGs reviewed -chest x-ray reviewed -continue bronchodilators and budesonide -continue Solu-Medrol q.a.m. - status post 7 days course of cefepime, azithromycin. -08/09: MRSA screen was positive but sputum culture has been negative -08/09: Blood negative x2 so far -08/09: Urine cultures negative -08/10: Sputum culture negative so far 08/16/2022: Patient self-extubated, was re-intubated immediately as he was tachypneic, using abdominal muscles to breathe, hypoxia, and was in respiratory distress 08/18 failed weaning trial in less than 10 minutes due to high RSBI tachycardia and respiratory distress. Placed back on CMV Continue Precedex and propofol infusion for now wean propofol and try on SBT again in a.m. (2) Chest pain: Qualifiers: Chest pain type: unspecified Qualified Code(s): R07.9 - Chest pain, unspecified Code(s): R07.9 - Chest pain, unspecified Status: Acute Assessment and Plan: Patient presented with chest pain at the outside hospital associated with shortness of breath, diaphoresis, nausea. -EKG at the outside hospital and at [facility] showed atrial flutter/fib with RVR -currently in sinus tachycardia -troponin negative x3. -off note patient had stress test in March 2019 that was unremarkable which was obtained from the ER note from the outside hospital -cardiology following the patient, -08/09 echocardiogram Summary ? 1. Technically challenging examination in this intubated patient. ? 2. Definity contrast injected to improve visualization. ? 3. Hyperdynamic appearing left ventricular systolic function with grade 1 diastolic noncompliance. ? 4. No significant valvular dysfunction identified. (3) COPD (chronic obstructive pulmonary disease): Qualifiers: COPD type: COPD with acute exacerbation Qualified Code(s): J44.1 - Chronic obstructive pulmonary disease with (acute) exacerbation Code(s): J44.9 - Chronic obstructive pulmonary disease, unspecified Status: Acute Assessment and Plan: See above (4) Urinary tract infection: Qualifiers: Urinary tract infection type: acute cystitis Hematuria presence: without hematuria Qualified Code(s): N30.00 - Acute cystitis without hematuria Code(s): N39.0 - Urinary tract infection, site not specified Status: Acute Assessment and Plan: UA reflective of UTI Completed course of antibiotics as above -urine cultures negative (5) Afib: Qualifiers: Atrial fibrillation type: paroxysmal Qualified Code(s): I48.0 - Paroxysmal atrial fibrillation Code(s): I48.91 - Unspecified atrial fibrillation Status: Acute Assessment and Plan: Patient also has paroxysmal AFib, on apixaban at home -ordered metoprolol p.r.n. -currently in sinus rhythm, rate controlled -08/12: hold apixaban as patient is anemic and dropped his hemoglobin to 7.0 5/10 start aspirin (6) CKD (chronic kidney disease) stage 3, GFR 30-59 ml/min: Code(s): N18.30 - Chronic kidney disease, stage 3 unspecified Status: Acute Assessment and Plan: Patient has history of chronic kidney disease sta
[2022-08-18] MEDS: dexmedeTOMIDine 400 MCG/100 ML 400 MCG/100 ML BAG 8.84 MCG IV CONT (09:50)
[2022-08-18] MEDS: DOCUSATE SODIUM LIQ 100 MG/10 ML UDC PO (09:57)
[2022-08-18] MEDS: PANTOPRAZOLE SODIUM IV 40 MG VIAL IV PUSH ×2 (09:57→20:16)
[2022-08-18] MEDS: MINERAL OIL/WHITE PETROLATUM OINTMENT 1 APPLIC EACH EYE ×2 (09:57→20:14)
[2022-08-18] MEDS: LACTULOSE 20 GM/30 ML UDC PO (09:59)
[2022-08-18] MEDS: METOPROLOL TARTRATE 50 MG TAB PO ×2 (09:59→20:15)
[2022-08-18] MEDS: methylPREDNISolone SOD SUCC 125 MG VIAL 80 MG IV PUSH (09:59)
[2022-08-18] MEDS: FONDAPARINUX SODIUM 2.5 MG/0.5 ML SYRINGE SUB-Q (10:00)
[2022-08-18] MEDS: polyethylene glycoL 3350 17 GM POWD.PACK PO (10:00)
[2022-08-18 11:39] LABS: Glucose Point of Care 198 mg/dl (65-105)
[2022-08-18] MEDS: hydrALAZINE HCL 20 MG/ML VIAL 10 MG IV PUSH ×2 (13:49→18:01)
--- NOTE | 2022-08-18 14:19 | WPDPN ---
Progress Note: A&P Assessment and Plan (1) Chest pain: Qualifiers: Chest pain type: unspecified Qualified Code(s): R07.9 - Chest pain, unspecified Code(s): R07.9 - Chest pain, unspecified Status: Acute Assessment and Plan: Monitor (2) Respiratory failure: Qualifiers: Chronicity: acute on chronic Respiratory failure complication: hypercapnia Qualified Code(s): J96.22 - Acute and chronic respiratory failure with hypercapnia Code(s): J96.90 - Respiratory failure, unspecified, unspecified whether with hypoxia or hypercapnia Status: Acute Assessment and Plan: Acute on chronic hypercapnic respiratory failure likely related to COPD, possible volume overload, possible pneumonia patient has cough, shortness of breath, leukocytosis -08/09: patient placed on BiPAP, repeat ABGs on BiPAP did not change that patient was more somnolent and not arousable -intubated on 08/10/2019 -intubated currently, managed per ICU -continue cefepime, azithromycin and vancomycin (08/09), will deescalate once cultures are resulted -08/09: MRSA screen positive -08/09: Blood negative x2 so far -08/09: Urine cultures negative 06/18/2022 inteval history:? Patient with exacerbation of COPD hypercarbic respiratory failure remains intubated suspect patient may have pneumonia and being treated Cefepime and azithromycin, on 08/16? patient self-extubated however was not able to breathe and patient was reintubated, patient awake? and follows commands, today patient was given weaning trial off ventilator however patient was not able to tolerate and was continued and remains intubated, discussed with insurance instructor patient unable to tolerate weaning trial, will continue to monitor (3) COPD (chronic obstructive pulmonary disease): Qualifiers: COPD type: COPD with acute exacerbation Qualified Code(s): J44.1 - Chronic obstructive pulmonary disease with (acute) exacerbation Code(s): J44.9 - Chronic obstructive pulmonary disease, unspecified Status: Acute Assessment and Plan: Continue bronchodilators, steroids, antibiotics (4) Urinary tract infection: Qualifiers: Urinary tract infection type: acute cystitis Hematuria presence: without hematuria Qualified Code(s): N30.00 - Acute cystitis without hematuria Code(s): N39.0 - Urinary tract infection, site not specified Status: Acute Assessment and Plan: UA reflective of UTI -continue antibiotics as above -urine cultures negative (5) Afib: Qualifiers: Atrial fibrillation type: paroxysmal Qualified Code(s): I48.0 - Paroxysmal atrial fibrillation Code(s): I48.91 - Unspecified atrial fibrillation Status: Acute Assessment and Plan: Patient also has paroxysmal AFib, on apixaban at home -ordered metoprolol p.r.n. -continue apixaban -currently in sinus rhythm, rate controlled (6) CKD (chronic kidney disease) stage 3, GFR 30-59 ml/min: Code(s): N18.30 - Chronic kidney disease, stage 3 unspecified Status: Acute Assessment and Plan: Patient has history of chronic kidney disease stage 3 -continue to monitor urine output, renal function and electrolytes -creatinine on admission was 0.80, -05/06: decreased urine output since admission elevated creatinine, elevated lactic acid -patient given small IV fluid bolus and gentle hydration -creatinine improved this morning, lactic acid has resolved, 1.0 this morning (7) Chronic pain disorder: Code(s): G89.4 - Chronic pain syndrome Status: Acute Assessment and Plan: History of chronic pain syndrome on chronic opiates, this could be the 1 of the causes of hypercapnic respiratory failure (8) GERD (gastroesophageal reflux disease): Qualifiers: Esophagitis presence: esophagitis presence not specified Qualified Code(s): K21.9 - Gastro-esophageal reflux disease without esophagitis
[2022-08-18] MEDS: METOPROLOL TARTRATE INJ 5 MG/5 ML VIAL IV PUSH ×2 (14:29→18:31)
[2022-08-18] MEDS: SCOPOLAMINE 1.5 MG PATCH TRANSDERM (15:00)
[2022-08-18] MEDS: PROPOFOL IV EMULSION 100 ML 10.97 MG IV CONT (15:30)
[2022-08-18 15:50] LABS: Glucose Point of Care 258 mg/dl (65-105)
[2022-08-18] MEDS: INSULIN ASPART (*BKC) 100 UNITS/ML SUB-Q (16:08)
[2022-08-18] MEDS: dexmedeTOMIDine 400 MCG/100 ML 400 MCG/100 ML BAG 13.26 MCG IV CONT (17:59)
[2022-08-18] MEDS: ACETAMINOPHEN ELIXIR 325 MG/10.15 ML UDC 650 MG FEED TUBE (18:37)
[2022-08-18 20:29] LABS: Glucose Point of Care 166 mg/dl (65-105)
[2022-08-18] MEDS: PROPOFOL IV EMULSION 100 ML 8.23 MG IV CONT (22:34)
[2022-08-18 23:25] LABS: Glucose Point of Care 159 mg/dl (65-105)
[2022-08-19] VITALS (48 sets, daily range): BP systolic 102–158; BP diastolic 55–80; PULSE 67–117; RESP 18–31; TEMP 36.6–37.2; O2SAT 95–100
[2022-08-19] MEDS: dexmedeTOMIDine 400 MCG/100 ML 400 MCG/100 ML BAG 17.68 MCG IV CONT ×2 (00:17→05:11)
[2022-08-19] MEDS: LEVALBUTEROL NEB 1.25 MG/3 ML INHALATION ×4 (02:55→20:11)
[2022-08-19] MEDS: METOCLOPRAMIDE HCL INJ 10 MG/2 ML VIAL IV PUSH ×3 (05:12→17:02)
[2022-08-19] MEDS: CENTRAL LINE FLUSH 10 ML IV PUSH ×4 (05:12→20:02)
[2022-08-19] MEDS: PROPOFOL IV EMULSION 100 ML 10.97 MG IV CONT (05:12)
[2022-08-19 05:25] LABS: Basophils Percent Auto 0.2 % (0.2-1.2); Eosinophils Absolute Auto 0.1 K/mm3 (0-0.3); Eosinophils Percent Auto 0.5 % (0-4.4); Hematocrit 25.2 % (42.0-52.0); Immature Granulocyte Percent A 1.8 % (0-0.5); Lymphocytes Absolute Auto 0.81 K/mm3 (0.9-3.2); Lymphocytes Percent Auto 7.2 % (18.3-44.2); Mean Corpuscular HGB Conc 27.8 g/dl (32-36); Mean Corpuscular Hemoglobin 23.6 pg (26-34); Mean Corpuscular Volume 84.8 fl (80-100); Monocytes Absolute Auto 0.9 K/mm3 (0.1-0.6); Monocytes Percent Auto 8.1 % (2.6-8.5); Neutrophils Absolute Auto 9.3 K/mm3 (1.3-6.7); Neutrophils Percent Auto 82.2 % (45.5-73.1); Nucleated Red Blood Cells Perc 0.3 % (0.0-0.2); Platelet Count Result 243 k/mm3 (150-375); Red Blood Count 2.97 M/mm3 (4.6-6.20); Red Cell Distribution Width 26.6 % (11.5-14.5); White Blood Count 11.3 K/mm3 (4.5-10.0)
[2022-08-19 05:40] LABS: Alanine Aminotransferase 54 U/L (6-50); Alkaline Phosphatase 43 U/L (38-126); Anion Gap 4 mmol/L (8-16); Aspartate Amino Transferase 26 U/L (17-59); Bilirubin,Total 0.3 mg/dL (0.2-1.3); Blood Urea Nitrogen 41 mg/dL (9-20); Calcium 7.9 mg/dL (8.4-10.2); Carbon Dioxide 32 mmol/L (22-30); Chloride 107 mmol/L (98-107); Estimated CRCL calculation 69 ml/min; Estimated Glomerular Filt Rate > 60; Glucose 195 mg/dL (65-110); Magnesium 2.8 mg/dL (1.6-2.3); Phosphorus 3.1 mg/dL (2.5-4.5); Potassium 3.9 mmol/L (3.4-5.0); Sodium 143 mmol/L (137-145); Triglycerides 120 mg/dL (<150)
[2022-08-19 05:44] LABS: Anisocytosis 2+ (NORMAL); Platelet Estimate Adequate (Adequate); Target Cells 1+ (NORMAL)
[2022-08-19 05:45] LABS: Hypochromasia 2+ (NORMAL); Schistocytes None Seen (NORMAL)
[2022-08-19 06:14] LABS: Alveolar/Arterial O2 Gradient 75.3 mmHg; Base Excess ABG 2.9 mEq/l (+/-2.0); Fractional Inspired Oxygen 28 %; HCO3 ABG 27.9 mEq/l (22.0-26.0); Methemoglobin ABG 0.3 %THb (0-1.5); Oxygen Content ABG 13.4 %vol (16.0-22.0); Oxygen Saturation ABG 94.4 % (95.0-100.0); Oxyhemoglobin 92.8 % THb (90.0-100.0); PCO2 ABG 45.1 mmHg (35.0-45.0); PO2 ABG 71.1 mmHg (80.0-100.0); PO2 FiO2 Ratio Arterial Blood 2.54 %; Reduced Hemoglobin 6.9 %THb (0-5.0); Total Hemoglobin 10.2 g/dL (12.0-18.0)
[2022-08-19 06:24] LABS: Device VENTILATOR; Modified Allen's Test Pass; Site Drawn RIGHT RADIAL
[2022-08-19 06:29] LABS: Arterial Blood Gas PEEP 5 cmH2O; Arterial Blood Gas Tidal Volume 500 ml; Arterial Blood Gas Vent Mode CMV; Arterial Blood Gas Ventilator rate 20 /MIN
[2022-08-19 07:28] LABS: Glucose Point of Care 194 mg/dl (65-105)
[2022-08-19] MEDS: FUROSEMIDE INJ 40 MG/4 ML VIAL 20 MG IV PUSH (07:58)
[2022-08-19] MEDS: methylPREDNISolone SOD SUCC 125 MG VIAL 80 MG IV PUSH (08:00)
[2022-08-19] MEDS: ASPIRIN 325 MG TABLET FEED TUBE (08:02)
[2022-08-19] MEDS: MINERAL OIL/WHITE PETROLATUM OINTMENT 1 APPLIC EACH EYE ×2 (08:07→19:58)
[2022-08-19] MEDS: PANTOPRAZOLE SODIUM IV 40 MG VIAL IV PUSH ×2 (08:07→19:58)
--- NOTE | 2022-08-19 08:15 | WPDINTPN ---
Progress Note: A&P Assessment and Plan (1) Respiratory failure: Qualifiers: Chronicity: acute on chronic Respiratory failure complication: hypercapnia Qualified Code(s): J96.22 - Acute and chronic respiratory failure with hypercapnia Code(s): J96.90 - Respiratory failure, unspecified, unspecified whether with hypoxia or hypercapnia Status: Acute Assessment and Plan: Acute on chronic hypercapnic respiratory failure likely related to COPD, possible volume overload, possible pneumonia patient has cough, shortness of breath, leukocytosis -08/09: patient placed on BiPAP, repeat ABGs on BiPAP did not change that patient was more somnolent and not arousable -intubated on 08/10/2019 -currently on CMV mode of ventilation, peep of 5, 30% FiO2, adequate O2 sats -ABGs reviewed -chest x-ray reviewed -continue bronchodilators and budesonide -continue Solu-Medrol q.a.m. - status post 7 days course of cefepime, azithromycin. -08/09: MRSA screen was positive but sputum culture has been negative -08/09: Blood negative x2 so far -08/09: Urine cultures negative -08/10: Sputum culture negative so far 08/16/2022: Patient self-extubated, was re-intubated immediately as he was tachypneic, using abdominal muscles to breathe, hypoxia, and was in respiratory distress 08/18 failed weaning trial in less than 10 minutes due to high RSBI tachycardia and respiratory distress. Did not tolerate even high pressure support. Patient was placed back on CMV 08/19 will try pressure support again today but will start with high pressure support and slowly wean down. Lasix IV x1 today Currently on precedex and propofol infusion. Propofol [facility] for SBT Patient may need tracheostomy considering he has failed to wean at until now (2) Chest pain: Qualifiers: Chest pain type: unspecified Qualified Code(s): R07.9 - Chest pain, unspecified Code(s): R07.9 - Chest pain, unspecified Status: Acute Assessment and Plan: Patient presented with chest pain at the outside hospital associated with shortness of breath, diaphoresis, nausea. -EKG at the outside hospital and at [facility] showed atrial flutter/fib with RVR -currently in sinus tachycardia -troponin negative x3. -off note patient had stress test in March 2019 that was unremarkable which was obtained from the ER note from the outside hospital -cardiology following the patient, -08/09 echocardiogram Summary ? 1. Technically challenging examination in this intubated patient. ? 2. Definity contrast injected to improve visualization. ? 3. Hyperdynamic appearing left ventricular systolic function with grade 1 diastolic noncompliance. ? 4. No significant valvular dysfunction identified. (3) COPD (chronic obstructive pulmonary disease): Qualifiers: COPD type: COPD with acute exacerbation Qualified Code(s): J44.1 - Chronic obstructive pulmonary disease with (acute) exacerbation Code(s): J44.9 - Chronic obstructive pulmonary disease, unspecified Status: Acute Assessment and Plan: See above (4) Urinary tract infection: Qualifiers: Urinary tract infection type: acute cystitis Hematuria presence: without hematuria Qualified Code(s): N30.00 - Acute cystitis without hematuria Code(s): N39.0 - Urinary tract infection, site not specified Status: Acute Assessment and Plan: UA reflective of UTI Completed course of antibiotics as above -urine cultures negative (5) Afib: Qualifiers: Atrial fibrillation type: paroxysmal Qualified Code(s): I48.0 - Paroxysmal atrial fibrillation Code(s): I48.91 - Unspecified atrial fibrillation Status: Acute Assessment and Plan: Patient also has paroxysmal AFib, on apixaban at home -ordered metoprolol p.r.n. -currently in sinus rhythm, rate controlled -08/12: hold apixaban as patient is anemic and dropped his hemoglobin to 7.0 5/10 start
[2022-08-19] MEDS: BUDESONIDE RESPULE NEB 0.5 MG/2 ML AMP INHALATION ×2 (08:26→20:11)
[2022-08-19] MEDS: FONDAPARINUX SODIUM 2.5 MG/0.5 ML SYRINGE SUB-Q (08:58)
[2022-08-19] MEDS: METOPROLOL TARTRATE 50 MG TAB PO ×2 (08:58→19:59)
[2022-08-19] MEDS: dexmedeTOMIDine 400 MCG/100 ML 400 MCG/100 ML BAG 19.89 MCG IV CONT (10:39)
--- NOTE | 2022-08-19 11:13 | PCFNICU ---
ICU Rounding Note: Pt current nutrition is Vital AF 1.2 at 65 ml/hr. Last recorded weight is 89.7 kg. Bowel Motility:+BM reported 08/18 Labs Reviewed:Mg 2.8.BUN 41, Glu 195, Alb 3.0,Hct 25.2,Hgb 7.0 Meds Noted:Colace, Reglan,Lopressor, Precedex, Lasix Skin: WNL Additional Notes: Patient remains on mechanical vent and tube feedings of Vital AF 1.2 at 65 ml/hr and tolerating. Flush 30 ml q 4 hours. Agree with diet orders. Will monitor in ICU rounds and reassess every Friday and Friday.
[2022-08-19 11:37] LABS: Glucose Point of Care 302 mg/dl (65-105)
[2022-08-19] MEDS: INSULIN ASPART (*BKC) 100 UNITS/ML SUB-Q ×2 (11:46→16:44)
[2022-08-19] MEDS: dexmedeTOMIDine 400 MCG/100 ML 400 MCG/100 ML BAG 22.1 MCG IV CONT ×2 (15:20→19:54)
[2022-08-19 16:22] LABS: Glucose Point of Care 268 mg/dl (65-105)
--- NOTE | 2022-08-19 17:37 | WPDPN ---
Progress Note: A&P Assessment and Plan (1) Chest pain: Qualifiers: Chest pain type: unspecified Qualified Code(s): R07.9 - Chest pain, unspecified Code(s): R07.9 - Chest pain, unspecified Status: Acute Assessment and Plan: Monitor (2) Respiratory failure: Qualifiers: Chronicity: acute on chronic Respiratory failure complication: hypercapnia Qualified Code(s): J96.22 - Acute and chronic respiratory failure with hypercapnia Code(s): J96.90 - Respiratory failure, unspecified, unspecified whether with hypoxia or hypercapnia Status: Acute Assessment and Plan: Acute on chronic hypercapnic respiratory failure likely related to COPD, possible volume overload, possible pneumonia patient has cough, shortness of breath, leukocytosis -08/09: patient placed on BiPAP, repeat ABGs on BiPAP did not change that patient was more somnolent and not arousable -intubated on 08/10/2019 -intubated currently, managed per ICU -continue cefepime, azithromycin and vancomycin (08/09), will deescalate once cultures are resulted -08/09: MRSA screen positive -08/09: Blood negative x2 so far -08/09: Urine cultures negative 06/19/2022 inteval history:? Patient with exacerbation of COPD hypercarbic respiratory failure remains intubated suspect patient may have pneumonia and being treated Cefepime and azithromycin, patient is off abx, on 08/16? patient self-extubated however was not able to breathe and patient was reintubated, patient awake? and follows commands, today patient was given?weaning trial off ventilator however patient was not able to tolerate and was continued to remains intubated,??discussed with tipple mechanic patient unable to tolerate weaning trial, will continue to monitor (3) COPD (chronic obstructive pulmonary disease): Qualifiers: COPD type: COPD with acute exacerbation Qualified Code(s): J44.1 - Chronic obstructive pulmonary disease with (acute) exacerbation Code(s): J44.9 - Chronic obstructive pulmonary disease, unspecified Status: Acute Assessment and Plan: Continue bronchodilators, steroids, antibiotics (4) Urinary tract infection: Qualifiers: Urinary tract infection type: acute cystitis Hematuria presence: without hematuria Qualified Code(s): N30.00 - Acute cystitis without hematuria Code(s): N39.0 - Urinary tract infection, site not specified Status: Acute Assessment and Plan: UA reflective of UTI -continue antibiotics as above -urine cultures negative (5) Afib: Qualifiers: Atrial fibrillation type: paroxysmal Qualified Code(s): I48.0 - Paroxysmal atrial fibrillation Code(s): I48.91 - Unspecified atrial fibrillation Status: Acute Assessment and Plan: Patient also has paroxysmal AFib, on apixaban at home -ordered metoprolol p.r.n. -continue apixaban -currently in sinus rhythm, rate controlled (6) CKD (chronic kidney disease) stage 3, GFR 30-59 ml/min: Code(s): N18.30 - Chronic kidney disease, stage 3 unspecified Status: Acute Assessment and Plan: Patient has history of chronic kidney disease stage 3 -continue to monitor urine output, renal function and electrolytes -creatinine on admission was 0.80, -/06: decreased urine output since admission elevated creatinine, elevated lactic acid -patient given small IV fluid bolus and gentle hydration -creatinine improved this morning, lactic acid has resolved, 1.0 this morning (7) Chronic pain disorder: Code(s): G89.4 - Chronic pain syndrome Status: Acute Assessment and Plan: History of chronic pain syndrome on chronic opiates, this could be the 1 of the causes of hypercapnic respiratory failure (8) GERD (gastroesophageal reflux disease): Qualifiers: Esophagitis presence: esophagitis presence not specified Qualified Code(s): K21.9 - Gastro-esophageal reflux disease wit
[2022-08-19] MEDS: DOCUSATE SODIUM LIQ 100 MG/10 ML UDC PO (19:58)
[2022-08-19 20:18] LABS: Glucose Point of Care 187 mg/dl (65-105)
[2022-08-20] VITALS (130 sets, daily range): BP systolic 103–219; BP diastolic 60–105; PULSE 18–141; RESP 9–33; TEMP 36.7–37.4; O2SAT 92–100
[2022-08-20 00:08] LABS: Glucose Point of Care 165 mg/dl (65-105)
[2022-08-20] MEDS: dexmedeTOMIDine 400 MCG/100 ML 400 MCG/100 ML BAG 22.1 MCG IV CONT ×3 (00:13→09:37)
[2022-08-20] MEDS: METOCLOPRAMIDE HCL INJ 10 MG/2 ML VIAL IV PUSH ×4 (00:13→17:48)
[2022-08-20] MEDS: LEVALBUTEROL NEB 1.25 MG/3 ML INHALATION ×4 (01:38→20:40)
[2022-08-20 04:22] LABS: Glucose Point of Care 199 mg/dl (65-105)
[2022-08-20] MEDS: CENTRAL LINE FLUSH 10 ML IV PUSH ×4 (05:13→19:54)
[2022-08-20 06:03] LABS: Carboxyhemoglobin 0.2 % THb (0-2.0); Fractional Inspired Oxygen 28 %; HCO3 ABG 31.6 mEq/l (22.0-26.0); Methemoglobin ABG 0.2 %THb (0-1.5); Oxygen Content ABG 10.9 %vol (16.0-22.0); Oxygen Saturation ABG 96.6 % (95.0-100.0); Oxyhemoglobin 94.7 % THb (90.0-100.0); PCO2 ABG 45.7 mmHg (35.0-45.0); PO2 ABG 82.7 mmHg (80.0-100.0); PO2 FiO2 Ratio Arterial Blood 2.95 %; Reduced Hemoglobin 4.9 %THb (0-5.0); Total Hemoglobin 8.1 g/dL (12.0-18.0); pH ABG 7.458 (7.350-7.450)
[2022-08-20 06:04] LABS: Modified Allen's Test Pass; Site Drawn LEFT RADIAL
[2022-08-20 06:05] LABS: Arterial Blood Gas PEEP 5 cmH2O; Arterial Blood Gas Tidal Volume 420 ml; Arterial Blood Gas Vent Mode CMV; Arterial Blood Gas Ventilator rate 18 /MIN; Device VENTILATOR
[2022-08-20 06:27] LABS: Basophils Percent Auto 0.1 % (0.2-1.2); Eosinophils Absolute Auto 0.1 K/mm3 (0-0.3); Eosinophils Percent Auto 0.7 % (0-4.4); Hematocrit 24.9 % (42.0-52.0); Immature Granulocyte Absolute 0.15 K/mm3 (0.00-0.031); Immature Granulocyte Percent A 1.3 % (0-0.5); Lymphocytes Absolute Auto 0.69 K/mm3 (0.9-3.2); Lymphocytes Percent Auto 5.9 % (18.3-44.2); Mean Corpuscular HGB Conc 28.1 g/dl (32-36); Mean Corpuscular Volume 85.3 fl (80-100); Mean Platelet Volume 9.1 fl (7.4-10.4); Monocytes Absolute Auto 0.7 K/mm3 (0.1-0.6); Platelet Count Result 250 k/mm3 (150-375); Red Blood Count 2.92 M/mm3 (4.6-6.20); Red Cell Distribution Width 26.8 % (11.5-14.5); White Blood Count 11.6 K/mm3 (4.5-10.0)
[2022-08-20 06:44] LABS: Alanine Aminotransferase 45 U/L (6-50); Albumin Level 3.1 g/dL (3.5-5.1); Alkaline Phosphatase 47 U/L (38-126); Anion Gap 2 mmol/L (8-16); Aspartate Amino Transferase 21 U/L (17-59); Bilirubin,Total 0.4 mg/dL (0.2-1.3); Blood Urea Nitrogen 37 mg/dL (9-20); Calcium 8.3 mg/dL (8.4-10.2); Carbon Dioxide 37 mmol/L (22-30); Chloride 105 mmol/L (98-107); Estimated CRCL calculation 77 ml/min; Estimated Glomerular Filt Rate > 60; Glucose 214 mg/dL (65-110); Magnesium 2.4 mg/dL (1.6-2.3); Potassium 3.9 mmol/L (3.4-5.0); Sodium 144 mmol/L (137-145)
[2022-08-20 06:57] LABS: Anisocytosis 1+ (NORMAL); Hypochromasia 2+ (NORMAL); Platelet Estimate Adequate (Adequate)
[2022-08-20 06:58] LABS: Macrocytosis 1+ (NORMAL); Schistocytes None Seen (NORMAL)
[2022-08-20] MEDS: BUDESONIDE RESPULE NEB 0.5 MG/2 ML AMP INHALATION ×2 (08:35→20:40)
--- NOTE | 2022-08-20 09:17 | WPDINTPN ---
Progress Note: A&P Assessment and Plan (1) Respiratory failure: Qualifiers: Chronicity: acute on chronic Respiratory failure complication: hypercapnia Qualified Code(s): J96.22 - Acute and chronic respiratory failure with hypercapnia Code(s): J96.90 - Respiratory failure, unspecified, unspecified whether with hypoxia or hypercapnia Status: Acute Assessment and Plan: Acute on chronic hypercapnic respiratory failure likely related to COPD, possible volume overload, possible pneumonia patient has cough, shortness of breath, leukocytosis -08/09: patient placed on BiPAP, repeat ABGs on BiPAP did not change that patient was more somnolent and not arousable -intubated on 08/10/2019 -currently on CMV mode of ventilation, peep of 5, 30% FiO2, adequate O2 sats -ABGs reviewed -chest x-ray reviewed -continue bronchodilators and budesonide -continue Solu-Medrol q.a.m. - status post 7 days course of cefepime, azithromycin. -08/09: MRSA screen was positive but sputum culture has been negative -08/09: Blood negative x2 so far -08/09: Urine cultures negative -08/10: Sputum culture negative so far 08/16/2022: Patient self-extubated, was re-intubated immediately as he was tachypneic, using abdominal muscles to breathe, hypoxia, and was in respiratory distress 08/18 and 08/19 failed SBT due to high RSBI, anti placed on pressure support 22/08 08/19: Responded very well to Lasix 08/20: Place patient on PSV 18/08, patient lasted about 45 minutes and then had abdomen breathing, tachypnea, tachycardia, hypertension with increased work of breathing, patient was placed on ASV -patient may require tracheostomy (2) Chest pain: Qualifiers: Chest pain type: unspecified Qualified Code(s): R07.9 - Chest pain, unspecified Code(s): R07.9 - Chest pain, unspecified Status: Acute Assessment and Plan: Patient presented with chest pain at the outside hospital associated with shortness of breath, diaphoresis, nausea. -EKG at the outside hospital and at [facility] showed atrial flutter/fib with RVR -currently in sinus tachycardia -troponin negative x3. -off note patient had stress test in March 2019 that was unremarkable which was obtained from the ER note from the outside hospital -cardiology following the patient, -08/09 echocardiogram Summary ? 1. Technically challenging examination in this intubated patient. ? 2. Definity contrast injected to improve visualization. ? 3. Hyperdynamic appearing left ventricular systolic function with grade 1 diastolic noncompliance. ? 4. No significant valvular dysfunction identified. (3) COPD (chronic obstructive pulmonary disease): Qualifiers: COPD type: COPD with acute exacerbation Qualified Code(s): J44.1 - Chronic obstructive pulmonary disease with (acute) exacerbation Code(s): J44.9 - Chronic obstructive pulmonary disease, unspecified Status: Acute Assessment and Plan: See above (4) Urinary tract infection: Qualifiers: Hematuria presence: without hematuria Urinary tract infection type: acute cystitis Qualified Code(s): N30.00 - Acute cystitis without hematuria Code(s): N39.0 - Urinary tract infection, site not specified Status: Acute Assessment and Plan: UA reflective of UTI Completed course of antibiotics as above -urine cultures negative (5) Afib: Qualifiers: Atrial fibrillation type: paroxysmal Qualified Code(s): I48.0 - Paroxysmal atrial fibrillation Code(s): I48.91 - Unspecified atrial fibrillation Status: Acute Assessment and Plan: Patient also has paroxysmal AFib, on apixaban at home -ordered metoprolol p.r.n. -currently in sinus rhythm, rate controlled -08/12: hold apixaban as patient is anemic and dropped his hemoglobin to 7.0 5/10 start aspirin (6) CKD (chronic kidney disease) stage 3, GFR 30-59 ml/min: Code(s): N18.30 - Chronic kid
[2022-08-20] MEDS: SODIUM CHLORIDE 0.9% IV 250 ML 30 ML IV CONT (09:32)
[2022-08-20] MEDS: DOCUSATE SODIUM LIQ 100 MG/10 ML UDC PO ×2 (09:33→19:53)
[2022-08-20] MEDS: PANTOPRAZOLE SODIUM IV 40 MG VIAL IV PUSH ×2 (09:34→19:54)
[2022-08-20] MEDS: METOPROLOL TARTRATE 50 MG TAB PO ×2 (09:34→19:54)
[2022-08-20] MEDS: methylPREDNISolone SOD SUCC 125 MG VIAL 80 MG IV PUSH (09:34)
[2022-08-20] MEDS: MINERAL OIL/WHITE PETROLATUM OINTMENT 1 APPLIC EACH EYE ×2 (09:34→19:54)
[2022-08-20] MEDS: INSULIN ASPART (*BKC) 100 UNITS/ML SUB-Q ×3 (09:49→16:02)
[2022-08-20 09:54] LABS: Glucose Point of Care 235 mg/dl (65-105)
--- NOTE | 2022-08-20 11:17 | PCNFU ---
Nutrition Follow-Up Complete: Inadequate Oral Intake as related to mechanical ventilation as evidenced by NPO. Goal: Meet estimated nutritional needs. Patient will continue current goal. Pt current nutrition is Vital AF 1.2 at 65 ml/hr Last recorded weight is 90.4 kg. Bowel Motility:+BM reported 08/19 Labs Reviewed:Mg 2.4,BUN 37, Alb 3.1,Hgb 7.0,Hct 24.9 Meds Noted:Precedex, Lasix, Solu Medrol,Reglan, NovoLog Skin:WNL Additional Notes: Patient remains on mechanical vent, following commands. Tube feedings are being tolerated of Vital AF 1.2 at 65 ml/hr. Tube feedings providing 1716 kcals/107 gms protein/1160 ml water. Meeting 100% caloric needs at 19 kcal/kg. Flush 30 ml q 4 hours. Agree with diet orders. Will monitor in ICU rounds and reassess every Friday and Friday.
[2022-08-20 12:00] LABS: Glucose Point of Care 252 mg/dl (65-105)
[2022-08-20] MEDS: LIDOCAINE HCL 1% PF INJ 5 ML VIAL INFILTRATE (13:30)
[2022-08-20] MEDS: dexmedeTOMIDine 400 MCG/100 ML 400 MCG/100 ML BAG 13.26 MCG IV CONT (14:23)
[2022-08-20] MEDS: hydrALAZINE HCL 20 MG/ML VIAL 10 MG IV PUSH (14:23)
[2022-08-20 14:35] LABS: Hematocrit 31.1 % (42.0-52.0); Hemoglobin 9.1 g/dL (14.0-18.0)
[2022-08-20] MEDS: METOPROLOL TARTRATE INJ 5 MG/5 ML VIAL IV PUSH (15:00)
--- NOTE | 2022-08-20 15:46 | WPDPN ---
Progress Note: A&P Assessment and Plan (1) Chest pain: Qualifiers: Chest pain type: unspecified Qualified Code(s): R07.9 - Chest pain, unspecified Code(s): R07.9 - Chest pain, unspecified Status: Acute Assessment and Plan: Monitor (2) Respiratory failure: Qualifiers: Chronicity: acute on chronic Respiratory failure complication: hypercapnia Qualified Code(s): J96.22 - Acute and chronic respiratory failure with hypercapnia Code(s): J96.90 - Respiratory failure, unspecified, unspecified whether with hypoxia or hypercapnia Status: Acute Assessment and Plan: Acute on chronic hypercapnic respiratory failure likely related to COPD, possible volume overload, possible pneumonia patient has cough, shortness of breath, leukocytosis -08/09: patient placed on BiPAP, repeat ABGs on BiPAP did not change that patient was more somnolent and not arousable -intubated on 08/10/2019 -intubated currently, managed per ICU -continue cefepime, azithromycin and vancomycin (08/09), will deescalate once cultures are resulted -08/09: MRSA screen positive -08/09: Blood negative x2 so far -08/09: Urine cultures negative 06/20/2022 inteval history:? Patient with exacerbation of COPD hypercarbic respiratory failure remains intubated suspect patient may have pneumonia and being treated Cefepime and azithromycin, patient is off abx, on 08/16? patient self-extubated however was not able to breathe and patient was reintubated, patient awake? and follows commands, today patient was given?weaning trial off ventilator was able to sustain for 45 minute however patient was not able to tolerate and was continued to remains intubated,??discussed with patient access representative patient unable to tolerate weaning trial, will continue to monitor (3) COPD (chronic obstructive pulmonary disease): Qualifiers: COPD type: COPD with acute exacerbation Qualified Code(s): J44.1 - Chronic obstructive pulmonary disease with (acute) exacerbation Code(s): J44.9 - Chronic obstructive pulmonary disease, unspecified Status: Acute Assessment and Plan: Continue bronchodilators, steroids, antibiotics (4) Urinary tract infection: Qualifiers: Urinary tract infection type: acute cystitis Hematuria presence: without hematuria Qualified Code(s): N30.00 - Acute cystitis without hematuria Code(s): N39.0 - Urinary tract infection, site not specified Status: Acute Assessment and Plan: UA reflective of UTI -continue antibiotics as above -urine cultures negative (5) Afib: Qualifiers: Atrial fibrillation type: paroxysmal Qualified Code(s): I48.0 - Paroxysmal atrial fibrillation Code(s): I48.91 - Unspecified atrial fibrillation Status: Acute Assessment and Plan: Patient also has paroxysmal AFib, on apixaban at home -ordered metoprolol p.r.n. -continue apixaban -currently in sinus rhythm, rate controlled (6) CKD (chronic kidney disease) stage 3, GFR 30-59 ml/min: Code(s): N18.30 - Chronic kidney disease, stage 3 unspecified Status: Acute Assessment and Plan: Patient has history of chronic kidney disease stage 3 -continue to monitor urine output, renal function and electrolytes -creatinine on admission was 0.80, -/06: decreased urine output since admission elevated creatinine, elevated lactic acid -patient given small IV fluid bolus and gentle hydration -creatinine improved this morning, lactic acid has resolved, 1.0 this morning (7) Chronic pain disorder: Code(s): G89.4 - Chronic pain syndrome Status: Acute Assessment and Plan: History of chronic pain syndrome on chronic opiates, this could be the 1 of the causes of hypercapnic respiratory failure (8) GERD (gastroesophageal reflux disease): Qualifiers: Esophagitis presence: esophagitis presence not specified Qualified Code(s): K21.9 -
[2022-08-20 16:07] LABS: Glucose Point of Care 222 mg/dl (65-105)
[2022-08-20] MEDS: PROPOFOL IV EMULSION 100 ML 2.71 MG IV CONT (17:47)
[2022-08-20 19:47] LABS: Glucose Point of Care 103 mg/dl (65-105)
[2022-08-20] MEDS: dexmedeTOMIDine 400 MCG/100 ML 400 MCG/100 ML BAG 8.84 MCG IV CONT (19:50)
[2022-08-21] VITALS (121 sets, daily range): BP systolic 90–176; BP diastolic 58–136; PULSE 67–124; RESP 10–27; TEMP 36.7–37.3; O2SAT 92–100
[2022-08-21 00:31] LABS: Glucose Point of Care 127 mg/dl (65-105)
[2022-08-21] MEDS: METOCLOPRAMIDE HCL INJ 10 MG/2 ML VIAL IV PUSH ×5 (00:31→23:28)
[2022-08-21] MEDS: LEVALBUTEROL NEB 1.25 MG/3 ML INHALATION ×4 (02:47→20:00)
[2022-08-21 04:37] LABS: Alveolar/Arterial O2 Gradient 79.8 mmHg; Base Excess ABG 5.4 mEq/l (+/-2.0); Carboxyhemoglobin 0.1 % THb (0-2.0); Fractional Inspired Oxygen 28 %; HCO3 ABG 30.1 mEq/l (22.0-26.0); Methemoglobin ABG 0.3 %THb (0-1.5); Oxygen Content ABG 15.2 %vol (16.0-22.0); Oxygen Saturation ABG 94.1 % (95.0-100.0); Oxyhemoglobin 92.1 % THb (90.0-100.0); PCO2 ABG 44.4 mmHg (35.0-45.0); PO2 ABG 67.5 mmHg (80.0-100.0); PO2 FiO2 Ratio Arterial Blood 2.41 %; Reduced Hemoglobin 7.5 %THb (0-5.0); Total Hemoglobin 11.7 g/dL (12.0-18.0); pH ABG 7.449 (7.350-7.450)
[2022-08-21 04:38] LABS: Modified Allen's Test Pass; Site Drawn RIGHT RADIAL
[2022-08-21 04:39] LABS: Arterial Blood Gas PEEP 5 cmH2O; Arterial Blood Gas Tidal Volume 420 ml; Arterial Blood Gas Vent Mode CMV; Arterial Blood Gas Ventilator rate 18 /MIN; Device VENTILATOR
[2022-08-21 05:00] LABS: Basophils Percent Auto 0.1 % (0.2-1.2); Eosinophils Absolute Auto 0.1 K/mm3 (0-0.3); Hemoglobin 8.8 g/dL (14.0-18.0); Immature Granulocyte Absolute 0.09 K/mm3 (0.00-0.031); Immature Granulocyte Percent A 0.9 % (0-0.5); Lymphocytes Absolute Auto 0.82 K/mm3 (0.9-3.2); Lymphocytes Percent Auto 8.1 % (18.3-44.2); Mean Corpuscular HGB Conc 29.3 g/dl (32-36); Mean Corpuscular Volume 85.2 fl (80-100); Mean Platelet Volume 9.1 fl (7.4-10.4); Monocytes Absolute Auto 0.6 K/mm3 (0.1-0.6); Monocytes Percent Auto 6.2 % (2.6-8.5); Neutrophils Absolute Auto 8.5 K/mm3 (1.3-6.7); Neutrophils Percent Auto 83.7 % (45.5-73.1); Platelet Count Result 284 k/mm3 (150-375); Red Blood Count 3.52 M/mm3 (4.6-6.20); Red Cell Distribution Width 25.5 % (11.5-14.5); White Blood Count 10.1 K/mm3 (4.5-10.0)
[2022-08-21 05:11] LABS: Alanine Aminotransferase 39 U/L (6-50); Albumin Level 3.1 g/dL (3.5-5.1); Alkaline Phosphatase 43 U/L (38-126); Anion Gap 4 mmol/L (8-16); Aspartate Amino Transferase 23 U/L (17-59); Bilirubin,Total 0.3 mg/dL (0.2-1.3); Blood Urea Nitrogen 38 mg/dL (9-20); Calcium 8.4 mg/dL (8.4-10.2); Carbon Dioxide 36 mmol/L (22-30); Chloride 105 mmol/L (98-107); Estimated CRCL calculation 69 ml/min; Estimated Glomerular Filt Rate > 60; Glucose 156 mg/dL (65-110); Magnesium 2.5 mg/dL (1.6-2.3); Phosphorus 3.8 mg/dL (2.5-4.5); Potassium 3.8 mmol/L (3.4-5.0); Sodium 145 mmol/L (137-145); Triglycerides 125 mg/dL (<150)
[2022-08-21] MEDS: CENTRAL LINE FLUSH 10 ML IV PUSH ×6 (05:22→20:02)
[2022-08-21 05:46] LABS: Hypochromasia 1+ (NORMAL); Platelet Estimate Adequate (Adequate)
[2022-08-21 05:48] LABS: Anisocytosis 2+ (NORMAL); Macrocytosis 1+ (NORMAL); Microcytosis 2+ (NORMAL); Schistocytes None Seen (NORMAL)
[2022-08-21] MEDS: BUDESONIDE RESPULE NEB 0.5 MG/2 ML AMP INHALATION ×2 (07:00→20:00)
[2022-08-21] MEDS: PROPOFOL IV EMULSION 100 ML 13.56 MG IV CONT ×3 (07:23→20:15)
[2022-08-21] MEDS: dexmedeTOMIDine 400 MCG/100 ML 400 MCG/100 ML BAG 8.84 MCG IV CONT ×2 (07:25→23:30)
[2022-08-21 07:49] LABS: Glucose Point of Care 167 mg/dl (65-105)
--- NOTE | 2022-08-21 08:39 | WPDINTPN ---
Progress Note: A&P Assessment and Plan (1) Respiratory failure: Qualifiers: Chronicity: acute on chronic Respiratory failure complication: hypercapnia Qualified Code(s): J96.22 - Acute and chronic respiratory failure with hypercapnia Code(s): J96.90 - Respiratory failure, unspecified, unspecified whether with hypoxia or hypercapnia Status: Acute Assessment and Plan: Acute on chronic hypercapnic respiratory failure likely related to COPD, possible volume overload, possible pneumonia patient has cough, shortness of breath, leukocytosis -08/09: patient placed on BiPAP, repeat ABGs on BiPAP did not change that patient was more somnolent and not arousable -intubated on 08/10/2019 -currently on CMV mode of ventilation, peep of 5, 30% FiO2, adequate O2 sats -ABGs reviewed -chest x-ray reviewed -continue bronchodilators and budesonide -continue Solu-Medrol q.a.m. - status post 7 days course of cefepime, azithromycin. -08/09: MRSA screen was positive but sputum culture has been negative -08/09: Blood negative x2 so far -08/09: Urine cultures negative -08/10: Sputum culture negative so far 08/16/2022: Patient self-extubated, was re-intubated immediately as he was tachypneic, using abdominal muscles to breathe, hypoxia, and was in respiratory distress 08/18 and 08/19, 08/19 failed SBT due to high RSBI, tachypnea, increased work of breathing 08/19: Responded very well to Lasix 08/21: Will place patient again on pressure support ventilation -patient may require tracheostomy (2) Chest pain: Qualifiers: Chest pain type: unspecified Qualified Code(s): R07.9 - Chest pain, unspecified Code(s): R07.9 - Chest pain, unspecified Status: Acute Assessment and Plan: Patient presented with chest pain at the outside hospital associated with shortness of breath, diaphoresis, nausea. -EKG at the outside hospital and at [facility] showed atrial flutter/fib with RVR -currently in sinus tachycardia -troponin negative x3. -off note patient had stress test in March 2019 that was unremarkable which was obtained from the ER note from the outside hospital -cardiology following the patient, -08/09 echocardiogram Summary ? 1. Technically challenging examination in this intubated patient. ? 2. Definity contrast injected to improve visualization. ? 3. Hyperdynamic appearing left ventricular systolic function with grade 1 diastolic noncompliance. ? 4. No significant valvular dysfunction identified. (3) COPD (chronic obstructive pulmonary disease): Qualifiers: COPD type: COPD with acute exacerbation Qualified Code(s): J44.1 - Chronic obstructive pulmonary disease with (acute) exacerbation Code(s): J44.9 - Chronic obstructive pulmonary disease, unspecified Status: Acute Assessment and Plan: See above (4) Urinary tract infection: Qualifiers: Urinary tract infection type: acute cystitis Hematuria presence: without hematuria Qualified Code(s): N30.00 - Acute cystitis without hematuria Code(s): N39.0 - Urinary tract infection, site not specified Status: Acute Assessment and Plan: UA reflective of UTI Completed course of antibiotics as above -urine cultures negative (5) Afib: Qualifiers: Atrial fibrillation type: paroxysmal Qualified Code(s): I48.0 - Paroxysmal atrial fibrillation Code(s): I48.91 - Unspecified atrial fibrillation Status: Acute Assessment and Plan: Patient also has paroxysmal AFib, on apixaban at home -ordered metoprolol p.r.n. -currently in sinus rhythm, rate controlled -08/12: hold apixaban as patient is anemic and dropped his hemoglobin to 7.0 5/10 start aspirin (6) CKD (chronic kidney disease) stage 3, GFR 30-59 ml/min: Code(s): N18.30 - Chronic kidney disease, stage 3 unspecified Status: Acute Assessment and Plan: Patient has history of chronic kidney
[2022-08-21] MEDS: methylPREDNISolone SOD SUCC 40 MG VIAL IV PUSH (08:48)
[2022-08-21] MEDS: MINERAL OIL/WHITE PETROLATUM OINTMENT 1 APPLIC EACH EYE ×2 (08:48→20:01)
[2022-08-21] MEDS: DOCUSATE SODIUM LIQ 100 MG/10 ML UDC PO ×2 (08:48→20:01)
[2022-08-21] MEDS: METOPROLOL TARTRATE 50 MG TAB PO ×2 (08:48→20:01)
[2022-08-21] MEDS: PANTOPRAZOLE SODIUM IV 40 MG VIAL IV PUSH ×2 (08:48→20:01)
[2022-08-21] MEDS: fentaNYL CITRATE INJ (*CRX) 100 MCG/2 ML VIAL 50 MCG IV PUSH ×2 (10:34→19:58)
--- NOTE | 2022-08-21 11:49 | PCFNICU ---
ICU Rounding Note: Pt current nutrition is Vital AF 1.2 at 65 ml/hr. Last recorded weight is 90.1 kg. Bowel Motility:+BM reported 08/19 Labs Reviewed:Mg 2.5,Glu 156, BUN 38, Hct 30.3,Alb 3.1 Meds Noted:Propofol 25 atoe=866 kcals, Precedex, Protonix Skin: WNL Additional Notes: Patient remains on mechanical vent. Tolerating tube feedings of Vital AF 1.2 at 65 ml/hr. Flush 30 ml q 4 hours. Plans for Trach and PEG placement. Agree with diet orders. Will monitor in ICU rounds and reassess every Friday and Friday.
[2022-08-21] MEDS: INSULIN ASPART (*BKC) 100 UNITS/ML SUB-Q ×3 (11:51→20:00)
[2022-08-21 11:55] LABS: Glucose Point of Care 236 mg/dl (65-105)
--- NOTE | 2022-08-21 12:05 | PC.NURSE ---
2925- Dr Field called regarding PEG placement consult, Dr. Field said to call Dr Stout since patient has seen Dr. Stout in the past. Called Dr. Stout's cell phone , no answer.
[2022-08-21] MEDS: dexmedeTOMIDine 400 MCG/100 ML 400 MCG/100 ML BAG 13.26 MCG IV CONT (13:33)
--- NOTE | 2022-08-21 16:24 | WPDPN ---
Progress Note: A&P Assessment and Plan (1) Chest pain: Qualifiers: Chest pain type: unspecified Qualified Code(s): R07.9 - Chest pain, unspecified Code(s): R07.9 - Chest pain, unspecified Status: Acute Assessment and Plan: Monitor (2) Respiratory failure: Qualifiers: Chronicity: acute on chronic Respiratory failure complication: hypercapnia Qualified Code(s): J96.22 - Acute and chronic respiratory failure with hypercapnia Code(s): J96.90 - Respiratory failure, unspecified, unspecified whether with hypoxia or hypercapnia Status: Acute Assessment and Plan: Acute on chronic hypercapnic respiratory failure likely related to COPD, possible volume overload, possible pneumonia patient has cough, shortness of breath, leukocytosis -08/09: patient placed on BiPAP, repeat ABGs on BiPAP did not change that patient was more somnolent and not arousable -intubated on 08/10/2019 -intubated currently, managed per ICU -continue cefepime, azithromycin and vancomycin (08/09), will deescalate once cultures are resulted -08/09: MRSA screen positive -08/09: Blood negative x2 so far -08/09: Urine cultures negative 06/21/2022 inteval history:? Patient with exacerbation of COPD hypercarbic respiratory failure remains intubated suspect patient may have pneumonia and being treated Cefepime and azithromycin, patient is off abx, on 08/16? patient self-extubated however was not able to breathe and patient was reintubated, patient awake? and follows commands, today again patient was given?weaning trial off ventilator was not able to sustain breathing on his own however patient was not able to tolerate and was continued to remains intubated,?if there is no significant improved in next 2 days patient will need trach?discussed with fire support specialist patient unable to tolerate weaning trial, will continue to monitor (3) COPD (chronic obstructive pulmonary disease): Qualifiers: COPD type: COPD with acute exacerbation Qualified Code(s): J44.1 - Chronic obstructive pulmonary disease with (acute) exacerbation Code(s): J44.9 - Chronic obstructive pulmonary disease, unspecified Status: Acute Assessment and Plan: Continue bronchodilators, steroids, antibiotics (4) Urinary tract infection: Qualifiers: Urinary tract infection type: acute cystitis Hematuria presence: without hematuria Qualified Code(s): N30.00 - Acute cystitis without hematuria Code(s): N39.0 - Urinary tract infection, site not specified Status: Acute Assessment and Plan: UA reflective of UTI -continue antibiotics as above -urine cultures negative (5) Afib: Qualifiers: Atrial fibrillation type: paroxysmal Qualified Code(s): I48.0 - Paroxysmal atrial fibrillation Code(s): I48.91 - Unspecified atrial fibrillation Status: Acute Assessment and Plan: Patient also has paroxysmal AFib, on apixaban at home -ordered metoprolol p.r.n. -continue apixaban -currently in sinus rhythm, rate controlled (6) CKD (chronic kidney disease) stage 3, GFR 30-59 ml/min: Code(s): N18.30 - Chronic kidney disease, stage 3 unspecified Status: Acute Assessment and Plan: Patient has history of chronic kidney disease stage 3 -continue to monitor urine output, renal function and electrolytes -creatinine on admission was 0.80, -/06: decreased urine output since admission elevated creatinine, elevated lactic acid -patient given small IV fluid bolus and gentle hydration -creatinine improved this morning, lactic acid has resolved, 1.0 this morning (7) Chronic pain disorder: Code(s): G89.4 - Chronic pain syndrome Status: Acute Assessment and Plan: History of chronic pain syndrome on chronic opiates, this could be the 1 of the causes of hypercapnic respiratory failure (8) GERD (gastroesophageal reflux disease): Qualifiers:
[2022-08-21 17:39] LABS: Glucose Point of Care 225 mg/dl (65-105)
[2022-08-21 19:56] LABS: Glucose Point of Care 212 mg/dl (65-105)
--- NOTE | 2022-08-21 22:57 | WPDCN ---
Assessment and Plan Assessment and plan (1) Respiratory insufficiency: Code(s): R06.89 - Other abnormalities of breathing Status: Acute Assessment and Plan: Plan OR for tracheostomy, please obtain consent, npo midnight before, hold vte prophylaxis morning of if possible. HPI Data of Consult Date/Time: 08/21/22 22:57 Requesting Physician: Radha Crowe MD Primary Care Provider: Bipin Le, Consult Narrative Narrative: Eduardo Bear is a 72 year old male with respirator insufficiency. Ent consulted for tracheostomy. Review of Systems Review of Systems: All systems reviewed & are unremarkable except as noted in HPI and below PMFSH Social History Social History Smoking packs per day: 0.25 Smoking cigarettes per day: 5.0 Smoking status: Former smoker Tobacco type: cigarettes Smoking end date: 09/26/16 Alcohol intake: current Substance use: current Substance use type: painkillers Spiritual care concerns: No Meds Home Medications and Allergies Home Medications Medication Instructions Recorded Confirmed Type Chlor-Trimeton 4 mg PO BID 08/09/22 08/09/22 History apixaban 5 mg tablet (Eliquis) 5 mg PO BID 08/09/22 08/09/22 History azithromycin 250 mg tablet 250 mg PO EVERY OTHER DAY 08/09/22 08/09/22 History budesonide 0.5 mg/2 mL suspension 0.5 mg inhalation BID 08/09/22 08/09/22 History for nebulization docusate sodium 1 cap PO BID 08/09/22 08/09/22 History hydrochlorothiazide 25 mg tablet 25 mg PO DAILY 08/09/22 08/09/22 History hydrocodone 10 mg-acetaminophen 1 tablet PO PRN pain 08/09/22 08/09/22 History 325 mg tablet lidocaine HCl 2 % mucosal jelly in 1 applic topical PRN Pain 08/09/22 08/09/22 History applicator lorazepam 1 mg tablet 1 mg PO TID 08/09/22 08/09/22 History melatonin 3 mg PO QHS 08/09/22 08/09/22 History metoprolol succinate 50 mg 50 mg PO DAILY 08/09/22 08/09/22 History tablet,extended release 24 hr morphine 15 mg tablet,extended 15 mg PO BID 08/09/22 08/09/22 History release pantoprazole 40 mg tablet,delayed 40 mg PO DAILY 08/09/22 08/09/22 History release prednisone 10 mg tablet 10 mg PO QAM 08/09/22 08/09/22 History Allergies Allergy/AdvReac Type Severity Reaction Status Date / Time albuterol AdvReac Palpitation Verified 08/09/22 09:14 s BCG (Bacillus AdvReac Unconscious Verified 08/09/22 09:14 [place]) vacc enoxaparin [From Lovenox] AdvReac Other Verified 08/09/22 12:57 heparin AdvReac Other Verified 08/09/22 12:57 ipratropium AdvReac Palpitation Verified 08/09/22 09:14 s ketorolac [From Toradol] AdvReac Nausea and Verified 08/09/22 09:14 Vomiting promethazine AdvReac Confusion Verified 08/09/22 09:14 Vital Signs Vital Signs - 24 hr 08/20/22 23:52 08/20/22 23:53 08/20/22 23:53 Temperature Pulse Rate 67 Respiratory Rate Blood Pressure Pulse Oximetry Oxygen Delivery Mechanical Ventilation Fraction of Inspired Oxygen 08/21/22 00:00 08/21/22 02:00 08/21/22 02:00 Temperature 37.3 C Pulse Rate 68 88 88 Respiratory Rate 18 18 Blood Pressure 90/58 L 133/64 Pulse Oximetry 96 98 Oxygen Delivery Fraction of Inspired Oxygen 08/21/22 02:47 08/21/22 02:48 08/21/22 04:00 Temperature Pulse Rate 80 87 84 Respiratory Rate 18 Blood Pressure Pulse Oximetry 98 Oxygen Delivery Mechanical Ventilation Fraction of Inspired Oxygen 08/21/22 04:00 08/21/22 04:00 08/21/22 04:00 Temperature 37.3 C Pulse Rate 85 Respiratory Rate 18 Blood Pressure 138/73 Pulse Oximetry 96 Oxygen Delivery Mechanical Ventilation Fraction of Inspired Oxygen 08/21/22 03:00 08/21/22 02:55 08/21/22 04:15 Temperature Pulse Rate 85 78 77 Respiratory Rate 18 18 Blood Pressure Pulse Oximetry 98 Oxygen Delivery Mechanical Ventilation Fraction
[2022-08-21 23:28] LABS: Glucose Point of Care 122 mg/dl (65-105)
[2022-08-22] VITALS (117 sets, daily range): BP systolic 71–168; BP diastolic 42–96; PULSE 67–124; RESP 12–29; TEMP 36.8–37.2; O2SAT 95–100
[2022-08-22] MEDS: hydrALAZINE HCL 20 MG/ML VIAL 10 MG IV PUSH (00:07)
[2022-08-22] MEDS: LEVALBUTEROL NEB 1.25 MG/3 ML INHALATION ×4 (02:16→20:07)
[2022-08-22] MEDS: METOPROLOL TARTRATE INJ 5 MG/5 ML VIAL IV PUSH (02:36)
[2022-08-22] MEDS: PROPOFOL IV EMULSION 100 ML 13.56 MG IV CONT ×2 (02:36→10:32)
[2022-08-22 04:37] LABS: Glucose Point of Care 132 mg/dl (65-105)
[2022-08-22] MEDS: METOCLOPRAMIDE HCL INJ 10 MG/2 ML VIAL IV PUSH ×3 (05:26→23:20)
[2022-08-22] MEDS: CENTRAL LINE FLUSH 10 ML IV PUSH ×7 (05:27→20:54)
[2022-08-22 05:49] LABS: Hematocrit 31.3 % (42.0-52.0); Hemoglobin 9.2 g/dL (14.0-18.0); Mean Corpuscular HGB Conc 29.4 g/dl (32-36); Mean Corpuscular Hemoglobin 24.9 pg (26-34); Mean Corpuscular Volume 84.6 fl (80-100); Mean Platelet Volume 8.7 fl (7.4-10.4); Platelet Count Result 325 k/mm3 (150-375); Red Cell Distribution Width 25.7 % (11.5-14.5); White Blood Count 12.9 K/mm3 (4.5-10.0)
[2022-08-22 06:01] LABS: Alanine Aminotransferase 38 U/L (6-50); Albumin Level 3.4 g/dL (3.5-5.1); Alkaline Phosphatase 52 U/L (38-126); Anion Gap 4 mmol/L (8-16); Aspartate Amino Transferase 21 U/L (17-59); Bilirubin,Total 0.5 mg/dL (0.2-1.3); Blood Urea Nitrogen 32 mg/dL (9-20); Calcium 8.3 mg/dL (8.4-10.2); Carbon Dioxide 33 mmol/L (22-30); Chloride 105 mmol/L (98-107); Estimated CRCL calculation 77 ml/min; Estimated Glomerular Filt Rate > 60; Glucose 137 mg/dL (65-110); Magnesium 2.4 mg/dL (1.6-2.3); Phosphorus 3.4 mg/dL (2.5-4.5); Potassium 3.8 mmol/L (3.4-5.0); Sodium 142 mmol/L (137-145); Triglycerides 100 mg/dL (<150)
[2022-08-22 06:02] LABS: Partial Thromboplastin Time 29.2 SECONDS (22.3-36.8)
[2022-08-22 06:16] LABS: Alveolar/Arterial O2 Gradient 77.9 mmHg; Base Excess ABG 3.5 mEq/l (+/-2.0); Carboxyhemoglobin 0.3 % THb (0-2.0); Fractional Inspired Oxygen 28 %; HCO3 ABG 28.2 mEq/l (22.0-26.0); Methemoglobin ABG 0.2 %THb (0-1.5); Oxygen Content ABG 14.4 %vol (16.0-22.0); Oxygen Saturation ABG 94.6 % (95.0-100.0); Oxyhemoglobin 92.6 % THb (90.0-100.0); PCO2 ABG 43.3 mmHg (35.0-45.0); PO2 ABG 70.6 mmHg (80.0-100.0); PO2 FiO2 Ratio Arterial Blood 2.52 %; Reduced Hemoglobin 6.9 %THb (0-5.0); pH ABG 7.431 (7.350-7.450)
[2022-08-22 06:17] LABS: Device VENTILATOR; Modified Allen's Test Pass; Site Drawn RIGHT RADIAL
[2022-08-22 06:18] LABS: Arterial Blood Gas PEEP 5 cmH2O; Arterial Blood Gas Tidal Volume 420 ml; Arterial Blood Gas Vent Mode CMV; Arterial Blood Gas Ventilator rate 18 /MIN
[2022-08-22 07:40] LABS: Glucose Point of Care 140 mg/dl (65-105)
[2022-08-22] MEDS: BUDESONIDE RESPULE NEB 0.5 MG/2 ML AMP INHALATION ×2 (07:42→20:07)
[2022-08-22] MEDS: methylPREDNISolone SOD SUCC 40 MG VIAL IV PUSH (08:04)
[2022-08-22] MEDS: PANTOPRAZOLE SODIUM IV 40 MG VIAL IV PUSH ×2 (08:04→20:53)
[2022-08-22] MEDS: TOLNAFTATE 1% POWDER 45 GM BTL 1 APPLIC TOPICAL ×2 (08:04→20:53)
[2022-08-22] MEDS: DOCUSATE SODIUM LIQ 100 MG/10 ML UDC PO ×2 (08:04→20:52)
[2022-08-22] MEDS: MINERAL OIL/WHITE PETROLATUM OINTMENT 1 APPLIC EACH EYE ×2 (08:05→20:53)
[2022-08-22] MEDS: METOPROLOL TARTRATE 50 MG TAB PO ×2 (08:05→20:52)
--- NOTE | 2022-08-22 08:44 | WPDINTPN ---
Progress Note: A&P Assessment and Plan (1) Respiratory failure: Qualifiers: Chronicity: acute on chronic Respiratory failure complication: hypercapnia Qualified Code(s): J96.22 - Acute and chronic respiratory failure with hypercapnia Code(s): J96.90 - Respiratory failure, unspecified, unspecified whether with hypoxia or hypercapnia Status: Acute Assessment and Plan: Acute on chronic hypercapnic respiratory failure likely related to COPD, possible volume overload, possible pneumonia patient has cough, shortness of breath, leukocytosis -08/09: patient placed on BiPAP, repeat ABGs on BiPAP did not change that patient was more somnolent and not arousable -intubated on 08/10/2019 -currently on CMV mode of ventilation, peep of 5, 30% FiO2, adequate O2 sats -ABGs reviewed -chest x-ray reviewed -continue bronchodilators and budesonide -continue Solu-Medrol q.a.m. - status post 7 days course of cefepime, azithromycin. -08/09: MRSA screen was positive but sputum culture has been negative -08/09: Blood negative x2 so far -08/09: Urine cultures negative -08/10: Sputum culture negative so far 08/16/2022: Patient self-extubated, was re-intubated immediately as he was tachypneic, using abdominal muscles to breathe, hypoxia, and was in respiratory distress 08/18 and 08/19, 08/19 failed SBT due to high RSBI, tachypnea, increased work of breathing 08/19: Responded very well to Lasix 08/21: Will place patient again on pressure support ventilation -discussed with patient and his daughter and daughter in law, regarding tracheostomy and PEG tube, all of them are agreeable. --Discussed with ENT, tracheostomy scheduled for 08/23 -PEG tube scheduled for 08/22 (2) Chest pain: Qualifiers: Chest pain type: unspecified Qualified Code(s): R07.9 - Chest pain, unspecified Code(s): R07.9 - Chest pain, unspecified Status: Acute Assessment and Plan: Patient presented with chest pain at the outside hospital associated with shortness of breath, diaphoresis, nausea. -EKG at the outside hospital and at [facility] showed atrial flutter/fib with RVR -currently in sinus tachycardia -troponin negative x3. -off note patient had stress test in March 2019 that was unremarkable which was obtained from the ER note from the outside hospital -cardiology following the patient, -08/09 echocardiogram Summary ? 1. Technically challenging examination in this intubated patient. ? 2. Definity contrast injected to improve visualization. ? 3. Hyperdynamic appearing left ventricular systolic function with grade 1 diastolic noncompliance. ? 4. No significant valvular dysfunction identified. (3) COPD (chronic obstructive pulmonary disease): Qualifiers: COPD type: COPD with acute exacerbation Qualified Code(s): J44.1 - Chronic obstructive pulmonary disease with (acute) exacerbation Code(s): J44.9 - Chronic obstructive pulmonary disease, unspecified Status: Acute Assessment and Plan: See above (4) Urinary tract infection: Qualifiers: Urinary tract infection type: acute cystitis Hematuria presence: without hematuria Qualified Code(s): N30.00 - Acute cystitis without hematuria Code(s): N39.0 - Urinary tract infection, site not specified Status: Acute Assessment and Plan: UA reflective of UTI Completed course of antibiotics as above -urine cultures negative (5) Afib: Qualifiers: Atrial fibrillation type: paroxysmal Qualified Code(s): I48.0 - Paroxysmal atrial fibrillation Code(s): I48.91 - Unspecified atrial fibrillation Status: Acute Assessment and Plan: Patient also has paroxysmal AFib, on apixaban at home -ordered metoprolol p.r.n. -currently in sinus rhythm, rate controlled -08/12: hold apixaban as patient is anemic and dropped his hemoglobin to 7.0 5/10 start aspirin (6) CKD (chronic kidney disease) stage 3,
[2022-08-22] MEDS: fentaNYL CITRATE INJ (*CRX) 100 MCG/2 ML VIAL 50 MCG IV PUSH ×2 (08:49→15:35)
[2022-08-22] MEDS: dexmedeTOMIDine 400 MCG/100 ML 400 MCG/100 ML BAG 8.84 MCG IV CONT ×2 (08:50→20:51)
--- NOTE | 2022-08-22 11:09 | PCFNICU ---
ICU Rounding Note: Pt current nutrition is Vital AF 1.2 at 65 ml/hr. Last recorded weight is 91.1 kg. Bowel Motility:+BM reported 08/22 Labs Reviewed:Mg 2.4,BUN 32, Glu 137, Hct 31.3,Hgb 9.2 Meds Noted:Precedex, Solu Medrol, Reglan, Propofol at 25 achi=883 kcals. Skin: WNL Additional Notes: Patient NPO for PEG today and plans for Trach placement 08/23. When tube feedings resume recommend Vital AF 1.2 at 65 ml/hr. Flush 30 ml q 4 hours. Will monitor in ICU rounds and reassess every Friday and Friday.
[2022-08-22] MEDS: QUEtiapine FUMARATE 25 MG TABLET PO ×2 (11:50→20:54)
[2022-08-22] MEDS: HYDROcodone/acetaminophen (*CRX) 10-325 MG TABLET 1 TAB PO ×2 (11:52→23:18)
--- NOTE | 2022-08-22 13:02 | PM.IMHP ---
H&P: HPI History of Present Illness Date/Time: 08/22/22 13:02 Chief Complaint: respiratory failure Narrative: planned procedure Review of Systems Review of Systems: ROS unobtainable: Yes unobtainable due to endotracheal tube PMFSH Social History Social History Smoking packs per day: 0.25 Smoking cigarettes per day: 5.0 Smoking status: Former smoker Tobacco type: cigarettes Smoking end date: 09/26/16 Alcohol intake: current Substance use: current Substance use type: painkillers Spiritual care concerns: No Meds Home Medications and Allergies Home Medications Medication Instructions Recorded Confirmed Type Chlor-Trimeton 4 mg PO BID 08/09/22 08/09/22 History apixaban 5 mg tablet (Eliquis) 5 mg PO BID 08/09/22 08/09/22 History azithromycin 250 mg tablet 250 mg PO EVERY OTHER DAY 08/09/22 08/09/22 History budesonide 0.5 mg/2 mL suspension 0.5 mg inhalation BID 08/09/22 08/09/22 History for nebulization docusate sodium 1 cap PO BID 08/09/22 08/09/22 History hydrochlorothiazide 25 mg tablet 25 mg PO DAILY 08/09/22 08/09/22 History hydrocodone 10 mg-acetaminophen 1 tablet PO PRN pain 08/09/22 08/09/22 History 325 mg tablet lidocaine HCl 2 % mucosal jelly in 1 applic topical PRN Pain 08/09/22 08/09/22 History applicator lorazepam 1 mg tablet 1 mg PO TID 08/09/22 08/09/22 History melatonin 3 mg PO QHS 08/09/22 08/09/22 History metoprolol succinate 50 mg 50 mg PO DAILY 08/09/22 08/09/22 History tablet,extended release 24 hr morphine 15 mg tablet,extended 15 mg PO BID 08/09/22 08/09/22 History release pantoprazole 40 mg tablet,delayed 40 mg PO DAILY 08/09/22 08/09/22 History release prednisone 10 mg tablet 10 mg PO QAM 08/09/22 08/09/22 History Allergies Allergy/AdvReac Type Severity Reaction Status Date / Time albuterol AdvReac Palpitation Verified 08/09/22 09:14 s BCG (Bacillus AdvReac Unconscious Verified 08/09/22 09:14 [place]) vacc enoxaparin [From Lovenox] AdvReac Other Verified 08/09/22 12:57 heparin AdvReac Other Verified 08/09/22 12:57 ipratropium AdvReac Palpitation Verified 08/09/22 09:14 s ketorolac [From Toradol] AdvReac Nausea and Verified 08/09/22 09:14 Vomiting promethazine AdvReac Confusion Verified 08/09/22 09:14 Vital Signs Vital Signs - 24 hr 08/21/22 13:10 08/21/22 16:12 08/21/22 16:00 Temperature Pulse Rate 74 67 Respiratory Rate 18 Blood Pressure Pulse Oximetry 96 Oxygen Delivery Mechanical Ventilation Fraction of Inspired Oxygen 28 08/21/22 16:00 08/21/22 14:00 08/21/22 18:00 Temperature Pulse Rate 77 99 Respiratory Rate Blood Pressure Pulse Oximetry Oxygen Delivery Mechanical Ventilation Fraction of Inspired Oxygen 28 08/21/22 16:00 08/21/22 13:15 08/21/22 13:30 Temperature Pulse Rate 80 71 70 Respiratory Rate 19 19 Blood Pressure Pulse Oximetry 94 93 Oxygen Delivery Fraction of Inspired Oxygen 08/21/22 13:31 08/21/22 13:45 08/21/22 14:00 Temperature Pulse Rate 73 77 77 Respiratory Rate 18 21 H 21 H Blood Pressure 107/65 Pulse Oximetry 94 95 93 Oxygen Delivery Fraction of Inspired Oxygen 08/21/22 14:01 08/21/22 14:15 08/21/22 14:30 Temperature Pulse Rate 75 82 85 Respiratory Rate 20 22 H 27 H Blood Pressure 114/63 Pulse Oximetry 94 95 96 Oxygen Delivery Fraction of Inspired Oxygen 08/21/22 14:31 08/21/22 14:45 08/21/22 15:00 Temperature Pulse Rate 91 91 93 Respiratory Rate 24 H 22 H 24 H Blood Pressure 160/67 H Pulse Oximetry 96 96 95 Oxygen Delivery Fraction of Inspired Oxygen 08/21/22 15:01 08/21/22 15:15 08/21/22 15:30 Temperature Pulse Rate 88 90 81 Respiratory Rate 26 H 19 25 H Blood Pressure 145/81 H Pulse Oximetry 96 96 96 Oxygen Delivery Fraction of Inspired Oxygen 08/21/22 15:31 08/21/22 1
[2022-08-22 13:52] LABS: Glucose Point of Care 174 mg/dl (65-105)
[2022-08-22] MEDS: ceFAZolin 1 GM/NS 50 ML 1 GM/50 ML BAG IVPB (14:54)
[2022-08-22] MEDS: PROPOFOL IV EMULSION 100 ML 27.12 MG IV CONT (15:34)
[2022-08-22] MEDS: MIDAZOLAM HCL (*CRX) 2 MG/2 ML VIAL IV PUSH ×2 (15:35→15:37)
--- NOTE | 2022-08-22 15:57 | SUR.OPER ---
1502: VS 121/60, 89, 96%, 18 (PROCEDURE START TIME) 1511: VS 146/57, 80, 95%, 18 1515: VS 107/66, 84, 95%, 18 1518: VS 90/58, 84, 95%, 18 (PROCEDURE END TIME) ICU NURSE ELLEN AT BEDSIDE DURING ENTIRE PROCEDURE MANAGING SEDATION.
--- NOTE | 2022-08-22 17:22 | WPDPN ---
Progress Note: A&P Assessment and Plan (1) Chest pain: Qualifiers: Chest pain type: unspecified Qualified Code(s): R07.9 - Chest pain, unspecified Code(s): R07.9 - Chest pain, unspecified Status: Acute Assessment and Plan: Monitor (2) Respiratory failure: Qualifiers: Chronicity: acute on chronic Respiratory failure complication: hypercapnia Qualified Code(s): J96.22 - Acute and chronic respiratory failure with hypercapnia Code(s): J96.90 - Respiratory failure, unspecified, unspecified whether with hypoxia or hypercapnia Status: Acute Assessment and Plan: Acute on chronic hypercapnic respiratory failure likely related to COPD, possible volume overload, possible pneumonia patient has cough, shortness of breath, leukocytosis -08/09: patient placed on BiPAP, repeat ABGs on BiPAP did not change that patient was more somnolent and not arousable -intubated on 08/10/2019 -intubated currently, managed per ICU -continue cefepime, azithromycin and vancomycin (08/09), will deescalate once cultures are resulted -08/09: MRSA screen positive -08/09: Blood negative x2 so far -08/09: Urine cultures negative 06/22/2022 interval history:? Patient with exacerbation of COPD hypercarbic respiratory failure remains intubated suspect patient may have pneumonia and being treated Cefepime and azithromycin, patient is off abx, on 08/16? patient self-extubated however was not able to breathe and patient was reintubated, patient awake? and follows commands, today again patient was given?weaning trial off ventilator was not able to sustain breathing on his own however patient was not able to tolerate and was continued to remains intubated,?patient unable to wean off the ventilator fountain manager has ordered patient will have tract and PEG tomorrow and will transfer the patient to LTAC once a bed is available (3) COPD (chronic obstructive pulmonary disease): Qualifiers: COPD type: COPD with acute exacerbation Qualified Code(s): J44.1 - Chronic obstructive pulmonary disease with (acute) exacerbation Code(s): J44.9 - Chronic obstructive pulmonary disease, unspecified Status: Acute Assessment and Plan: Continue bronchodilators, steroids, antibiotics (4) Urinary tract infection: Qualifiers: Urinary tract infection type: acute cystitis Hematuria presence: without hematuria Qualified Code(s): N30.00 - Acute cystitis without hematuria Code(s): N39.0 - Urinary tract infection, site not specified Status: Acute Assessment and Plan: UA reflective of UTI -continue antibiotics as above -urine cultures negative (5) Afib: Qualifiers: Atrial fibrillation type: paroxysmal Qualified Code(s): I48.0 - Paroxysmal atrial fibrillation Code(s): I48.91 - Unspecified atrial fibrillation Status: Acute Assessment and Plan: Patient also has paroxysmal AFib, on apixaban at home -ordered metoprolol p.r.n. -continue apixaban -currently in sinus rhythm, rate controlled (6) CKD (chronic kidney disease) stage 3, GFR 30-59 ml/min: Code(s): N18.30 - Chronic kidney disease, stage 3 unspecified Status: Acute Assessment and Plan: Patient has history of chronic kidney disease stage 3 -continue to monitor urine output, renal function and electrolytes -creatinine on admission was 0.80, -/06: decreased urine output since admission elevated creatinine, elevated lactic acid -patient given small IV fluid bolus and gentle hydration -creatinine improved this morning, lactic acid has resolved, 1.0 this morning (7) Chronic pain disorder: Code(s): G89.4 - Chronic pain syndrome Status: Acute Assessment and Plan: History of chronic pain syndrome on chronic opiates, this could be the 1 of the causes of hypercapnic respiratory failure (8) GERD (gastroesophageal reflux disease): Qualifiers:
[2022-08-22 19:28] LABS: Glucose Point of Care 114 mg/dl (65-105)
[2022-08-22] MEDS: SCOPOLAMINE 1.5 MG PATCH TRANSDERM (20:49)
[2022-08-22 22:48] LABS: Glucose Point of Care 152 mg/dl (65-105)
[2022-08-22 23:28] LABS: Glucose Point of Care 119 mg/dl (65-105)
[2022-08-23] VITALS (46 sets, daily range): BP systolic 104–192; BP diastolic 63–104; PULSE 73–133; RESP 14–24; TEMP 36.3–37.8; O2SAT 95–100
[2022-08-23] MEDS: PROPOFOL IV EMULSION 100 ML 15 MG IV CONT (01:05)
[2022-08-23] MEDS: LEVALBUTEROL NEB 1.25 MG/3 ML INHALATION ×4 (02:30→21:08)
[2022-08-23 04:16] LABS: Glucose Point of Care 118 mg/dl (65-105)
[2022-08-23 05:08] LABS: Alveolar/Arterial O2 Gradient 67.9 mmHg; Base Excess ABG 4.1 mEq/l (+/-2.0); Carboxyhemoglobin 0.3 % THb (0-2.0); Device VENTILATOR; Fractional Inspired Oxygen 28 %; HCO3 ABG 28.9 mEq/l (22.0-26.0); Methemoglobin ABG 0.2 %THb (0-1.5); Modified Allen's Test Pass; Oxygen Content ABG 14.2 %vol (16.0-22.0); Oxyhemoglobin 94.1 % THb (90.0-100.0); PCO2 ABG 44.2 mmHg (35.0-45.0); PO2 ABG 79.6 mmHg (80.0-100.0); PO2 FiO2 Ratio Arterial Blood 2.84 %; Reduced Hemoglobin 5.4 %THb (0-5.0); Site Drawn RIGHT RADIAL; Total Hemoglobin 10.7 g/dL (12.0-18.0); pH ABG 7.433 (7.350-7.450)
[2022-08-23 05:09] LABS: Arterial Blood Gas PEEP 5 cmH2O; Arterial Blood Gas Tidal Volume 420 ml; Arterial Blood Gas Vent Mode CMV; Arterial Blood Gas Ventilator rate 18 /MIN
[2022-08-23] MEDS: METOCLOPRAMIDE HCL INJ 10 MG/2 ML VIAL IV PUSH ×3 (05:48→17:07)
[2022-08-23] MEDS: METOPROLOL TARTRATE INJ 5 MG/5 ML VIAL IV PUSH ×2 (05:48→20:07)
[2022-08-23] MEDS: CENTRAL LINE FLUSH 10 ML IV PUSH ×6 (05:50→20:17)
[2022-08-23 06:23] LABS: Basophils Percent Auto 0.1 % (0.2-1.2); Eosinophils Absolute Auto 0.1 K/mm3 (0-0.3); Eosinophils Percent Auto 1.3 % (0-4.4); Hematocrit 31.4 % (42.0-52.0); Hemoglobin 8.9 g/dL (14.0-18.0); Immature Granulocyte Absolute 0.08 K/mm3 (0.00-0.031); Immature Granulocyte Percent A 0.9 % (0-0.5); Lymphocytes Absolute Auto 0.69 K/mm3 (0.9-3.2); Lymphocytes Percent Auto 7.3 % (18.3-44.2); Mean Corpuscular HGB Conc 28.3 g/dl (32-36); Mean Corpuscular Hemoglobin 24.5 pg (26-34); Mean Corpuscular Volume 86.5 fl (80-100); Mean Platelet Volume 8.8 fl (7.4-10.4); Monocytes Absolute Auto 0.6 K/mm3 (0.1-0.6); Neutrophils Percent Auto 84.4 % (45.5-73.1); Platelet Count Result 344 k/mm3 (150-375); Red Blood Count 3.63 M/mm3 (4.6-6.20); Red Cell Distribution Width 25.8 % (11.5-14.5); White Blood Count 9.4 K/mm3 (4.5-10.0)
[2022-08-23 06:51] LABS: Alanine Aminotransferase 35 U/L (6-50); Albumin Level 3.3 g/dL (3.5-5.1); Alkaline Phosphatase 53 U/L (38-126); Anion Gap 5 mmol/L (8-16); Anisocytosis 1+ (NORMAL); Aspartate Amino Transferase 25 U/L (17-59); Bilirubin,Total 0.6 mg/dL (0.2-1.3); Blood Urea Nitrogen 26 mg/dL (9-20); Calcium 8.4 mg/dL (8.4-10.2); Carbon Dioxide 33 mmol/L (22-30); Chloride 105 mmol/L (98-107); Estimated CRCL calculation 70 ml/min; Estimated Glomerular Filt Rate > 60; Glucose 133 mg/dL (65-110); Hypochromasia 2+ (NORMAL); Macrocytosis 1+ (NORMAL); Magnesium 2.3 mg/dL (1.6-2.3); Phosphorus 3.5 mg/dL (2.5-4.5); Platelet Estimate Adequate (Adequate); Potassium 3.6 mmol/L (3.4-5.0); Schistocytes None Seen (NORMAL); Sodium 143 mmol/L (137-145); Triglycerides 169 mg/dL (<150)
[2022-08-23] MEDS: BUDESONIDE RESPULE NEB 0.5 MG/2 ML AMP INHALATION ×2 (07:25→21:08)
[2022-08-23] MEDS: POTASSIUM CHLORIDE 20 MEQ PACKET (FOR LIQUID) 40 MEQ FEED TUBE (08:30)
[2022-08-23] MEDS: methylPREDNISolone SOD SUCC 40 MG VIAL 20 MG IV PUSH (09:10)
[2022-08-23] MEDS: DOCUSATE SODIUM LIQ 100 MG/10 ML UDC PO ×2 (09:10→20:15)
[2022-08-23] MEDS: METOPROLOL TARTRATE 50 MG TAB PO (09:10)
[2022-08-23] MEDS: PANTOPRAZOLE SODIUM IV 40 MG VIAL IV PUSH ×2 (09:11→20:14)
[2022-08-23] MEDS: MINERAL OIL/WHITE PETROLATUM OINTMENT 1 APPLIC EACH EYE ×2 (09:11→20:55)
[2022-08-23] MEDS: TOLNAFTATE 1% POWDER 45 GM BTL 1 APPLIC TOPICAL ×2 (09:11→20:15)
[2022-08-23] MEDS: hydrALAZINE HCL 20 MG/ML VIAL 10 MG IV PUSH (09:12)
[2022-08-23] MEDS: ACETAMINOPHEN ELIXIR 325 MG/10.15 ML UDC 650 MG FEED TUBE (09:13)
[2022-08-23] MEDS: PROPOFOL IV EMULSION 100 ML 8.14 MG IV CONT (09:28)
[2022-08-23] MEDS: QUEtiapine FUMARATE 25 MG TABLET PO (10:00)
--- NOTE | 2022-08-23 10:41 | PCNFU ---
Nutrition Follow-Up Complete: Inadequate Oral Intake as related to mechanical ventilation as evidenced by NPO. Goal: Meet estimated nutritional needs. Patient is progressing towards goal. We will continue current goal. Pt current nutrition is NPO. Nutrition recommendation: Vital AF 1.2 at 65 ml/hr Last recorded weight is 94.8 kg. Bowel Motility:+BM reported 08/21 Labs Reviewed: TG 169,Na 133, Alb 3.3,Hct 31.4,Hgb 8.9 Meds Noted:Colace, Reglan, Solu Medrol, Propofol 15 cbxa=934 kcals, Lopressor, Seroquel Skin: WNL Additional Notes: Patient planned for Trach today. PEG in place. Recommend to resume tube feedings of Vital AF 1.2 at 65 ml/hr with 30 ml water flush. Tube feedings at goal rate providing 1716 kcals/107 gms protein/1160 ml water. Propofol providing an additional 215 kcals, TG noted at 169. Meeting 100% kcal needs at 20 kcal/kg. Agree with diet orders. Will monitor in ICU rounds and reassess every Friday and Friday.
--- NOTE | 2022-08-23 11:28 | WPDINTPN ---
Progress Note: A&P Assessment and Plan (1) Respiratory failure: Qualifiers: Chronicity: acute on chronic Respiratory failure complication: hypercapnia Qualified Code(s): J96.22 - Acute and chronic respiratory failure with hypercapnia Code(s): J96.90 - Respiratory failure, unspecified, unspecified whether with hypoxia or hypercapnia Status: Acute Assessment and Plan: Acute on chronic hypercapnic respiratory failure likely related to COPD, possible volume overload, possible pneumonia patient has cough, shortness of breath, leukocytosis -08/09: patient placed on BiPAP, repeat ABGs on BiPAP did not change that patient was more somnolent and not arousable -intubated on 08/10/2019 -currently on CMV mode of ventilation, peep of 5, 30% FiO2, adequate O2 sats -ABGs reviewed -chest x-ray reviewed -continue bronchodilators and budesonide -continue Solu-Medrol q.a.m. - status post 7 days course of cefepime, azithromycin. -08/09: MRSA screen was positive but sputum culture has been negative -08/09: Blood negative x2 so far -08/09: Urine cultures negative -08/10: Sputum culture negative so far 08/16/2022: Patient self-extubated, was re-intubated immediately as he was tachypneic, using abdominal muscles to breathe, hypoxia, and was in respiratory distress Since 08/18 patient has failed SBT due to high RSBI, tachypnea, increased work of breathing -discussed with patient and his daughter and daughter in law, regarding tracheostomy and PEG tube, all of them are agreeable. --Discussed with ENT, tracheostomy scheduled for today, 08/23 -PEG tube inserted on 08/22/2022 Currently on propofol and Precedex infusion, will start p.r.n. Ativan is discontinued the infusions, related add p.r.n. fentanyl for pain control (2) Chest pain: Qualifiers: Chest pain type: unspecified Qualified Code(s): R07.9 - Chest pain, unspecified Code(s): R07.9 - Chest pain, unspecified Status: Acute Assessment and Plan: Patient presented with chest pain at the outside hospital associated with shortness of breath, diaphoresis, nausea. -EKG at the outside hospital and at [facility] showed atrial flutter/fib with RVR -currently in sinus tachycardia -troponin negative x3. -off note patient had stress test in March 2019 that was unremarkable which was obtained from the ER note from the outside hospital -cardiology following the patient, -08/09 echocardiogram Summary ? 1. Technically challenging examination in this intubated patient. ? 2. Definity contrast injected to improve visualization. ? 3. Hyperdynamic appearing left ventricular systolic function with grade 1 diastolic noncompliance. ? 4. No significant valvular dysfunction identified. (3) COPD (chronic obstructive pulmonary disease): Qualifiers: COPD type: COPD with acute exacerbation Qualified Code(s): J44.1 - Chronic obstructive pulmonary disease with (acute) exacerbation Code(s): J44.9 - Chronic obstructive pulmonary disease, unspecified Status: Acute Assessment and Plan: See above (4) Urinary tract infection: Qualifiers: Urinary tract infection type: acute cystitis Hematuria presence: without hematuria Qualified Code(s): N30.00 - Acute cystitis without hematuria Code(s): N39.0 - Urinary tract infection, site not specified Status: Acute Assessment and Plan: UA reflective of UTI Completed course of antibiotics as above -urine cultures negative (5) Afib: Qualifiers: Atrial fibrillation type: paroxysmal Qualified Code(s): I48.0 - Paroxysmal atrial fibrillation Code(s): I48.91 - Unspecified atrial fibrillation Status: Acute Assessment and Plan: Patient also has paroxysmal AFib, on apixaban at home -ordered metoprolol p.r.n. -currently in sinus rhythm, rate controlled -08/12: hold apixaban as patient is anemic and dropped his hemoglobin to 7.0 5
[2022-08-23] MEDS: METOPROLOL TARTRATE 50 MG TAB FEED TUBE (11:38)
[2022-08-23 11:42] LABS: Glucose Point of Care 138 mg/dl (65-105)
[2022-08-23] MEDS: LORazepam INJ (*CRX) 2 MG/ML VIAL IV PUSH ×3 (12:41→22:11)
--- NOTE | 2022-08-23 12:53 | WPDHPUPDATE1 ---
History and Physical Update Update Date/Time: 08/23/22 12:53 History and Physical has been reviewed, including an updated exam of the patient. There are NO changes in the patient's condition. Risks, benefits, and alternatives have been discussed and questions answered. Patient agrees to proceed with procedure.
[2022-08-23 13:13] LABS: Glucose Point of Care 165 mg/dl (65-105)
[2022-08-23] MEDS: ceFAZolin SODIUM 1 GM VIAL 2 GM IV PUSH (13:36)
[2022-08-23] MEDS: LIDO 1%/EPINEPHRINE 1:100,000 50 ML VIAL 10 ML INFILTRATE (13:38)
--- NOTE | 2022-08-23 13:38 | WPDANESEPPF ---
Anes - Initial Pre Proc Eval Procedure: Operation Date: 08/23/22 13:30 Proposed Procedures p Tracheostomy - Eric Alexander MD Date/Time: 08/23/22 13:38 Surgeon: Radha Crowe MD Pre Op Diagnosis: Anemia Patient Data Age: 72 Gender: M Height: 1.7 m Weight: 94.8 kg Last Vital Signs Temp 37.2 C 08/23/22 11:37 Pulse 97 08/23/22 12:53 Resp 20 08/23/22 12:53 BP 154/84 H 08/23/22 12:00 Pulse Ox 98 08/23/22 12:00 O2 Del Method Mechanical Ventilation 08/23/22 12:00 FiO2 28 08/23/22 12:00 Allergies Allergy/AdvReac Type Severity Reaction Status Date / Time albuterol AdvReac Palpitation Verified 08/09/22 09:14 s BCG (Bacillus AdvReac Unconscious Verified 08/09/22 09:14 [place]) vacc enoxaparin [From Lovenox] AdvReac Other Verified 08/09/22 12:57 heparin AdvReac Other Verified 08/09/22 12:57 ipratropium AdvReac Palpitation Verified 08/09/22 09:14 s ketorolac [From Toradol] AdvReac Nausea and Verified 08/09/22 09:14 Vomiting promethazine AdvReac Confusion Verified 08/09/22 09:14 Home Medications Medication Instructions Recorded Confirmed Type Chlor-Trimeton 4 mg PO BID 08/09/22 08/09/22 History apixaban 5 mg tablet (Eliquis) 5 mg PO BID 08/09/22 08/09/22 History azithromycin 250 mg tablet 250 mg PO EVERY OTHER DAY 08/09/22 08/09/22 History budesonide 0.5 mg/2 mL suspension 0.5 mg inhalation BID 08/09/22 08/09/22 History for nebulization docusate sodium 1 cap PO BID 08/09/22 08/09/22 History hydrochlorothiazide 25 mg tablet 25 mg PO DAILY 08/09/22 08/09/22 History hydrocodone 10 mg-acetaminophen 1 tablet PO PRN pain 08/09/22 08/09/22 History 325 mg tablet lidocaine HCl 2 % mucosal jelly in 1 applic topical PRN Pain 08/09/22 08/09/22 History applicator lorazepam 1 mg tablet 1 mg PO TID 08/09/22 08/09/22 History melatonin 3 mg PO QHS 08/09/22 08/09/22 History metoprolol succinate 50 mg 50 mg PO DAILY 08/09/22 08/09/22 History tablet,extended release 24 hr morphine 15 mg tablet,extended 15 mg PO BID 08/09/22 08/09/22 History release pantoprazole 40 mg tablet,delayed 40 mg PO DAILY 08/09/22 08/09/22 History release prednisone 10 mg tablet 10 mg PO QAM 08/09/22 08/09/22 History Laboratory Tests 08/13/22 08/22/22 08/22/22 11:57 11:54 18:18 WBC RBC Hgb Hct MCV MCH MCHC RDW Plt Count MPV Immature Gran % (Auto) Neut % (Auto) Lymph % (Auto) [place] % (Auto) Eos % (Auto) Baso % (Auto) Lymph # (Auto) [place] # (Auto) Eos # (Auto) Baso # (Auto) Abs Immat Gran (auto) Absolute Neuts (auto) Absolute Nucleated RBC Nucleated RBC % Platelet Estimate Hypochromasia Anisocytosis Macrocytosis Schistocytes Puncture Site ABG pH ABG pCO2 ABG pO2 ABG PO2/FiO2 Ratio ABG HCO3 ABG O2 Saturation ABG O2 Content ABG Base Excess A-a Gradient Oxyhemoglobin Carboxyhemoglobin Methemoglobin Reduced Hemoglobin Total Hemoglobin O2 Delivery Device O2 Liters/Min Minute Volume Vent Rate Vent Mode FiO2 Tidal Volume PEEP Peak Inspir Pressure Pressure Support Sodium Potassium Chloride Carbon Dioxide Anion Gap BUN Creatinine Estim Creat Clear Calc Estimated GFR Glucose POC Capillary Glucose
--- NOTE | 2022-08-23 13:39 | PC.NURSE ---
Patient transported to OR for tracheostomy at 1319 by OR staff with assistance of RT and this RN. Patient arrived to OR entrance at 1322. OR staff and physician to resume patient care until end of procedure.
--- NOTE | 2022-08-23 14:19 | PC.NURSE ---
Post tracheostomy report given at 1414 by ALEX Chen via telephone report. Patient to be transported back to ICU room 6 for further care and management.
--- NOTE | 2022-08-23 14:34 | W.PM.PROC2 ---
Procedure Note - Detailed Date of Procedure 08/23/22 Pre-op Diagnosis Failure Post-op Diagnosis Same Procedure Performed tracheostomy Surgeon Eric Alexander MD Anesthesia General Indications respiratory failure Findings low-lying trachea rings 1 2 and 3 fused tracheotomy made in the future ring structure Description of Procedure patient identified consent verified in ICU. Patient brought down to the operating room. Time-out performed. Anesthesia deepened. Patient moved over to the operative bed. Time-out performed. Patient prepped shoulder roll placed 2nd time-out performed after the procedure was confirmed. Patient prepped. Incision made over a pre drawn surgical jessenia line over the cricoid which was very very low over the sternal notch. 2 cc 1% lidocaine 1 1000 parts epinephrine was also injected deep to this. Incision made through the skin no bleeding Bovie electrocautery as cut the platysma [place] retractors were then placed Bovie electrocautery as good of the trachea cricoid identified cricoid hook placed. Tracheal rings 1 2 and 3 fused. Decision made to create a tracheotomy. Through the few structure. Anesthesia informed balloon deflated tracheotomy made through the few structure heavy curved scissors utilized to formal great tracheotomy. Anesthesia then removed endotracheal tube with a longer visible through tracheotomy. Seven a proximal XLT trach placed to the tracheotomy. End-tidal CO2 confirmed. Inner cannula placed cuff inflated 4 corner sutures placed Lee trach ties placed drain sponge placed. Patient tolerated procedure well. Blood loss 5 cc. I performed all dictated portions of procedure no complications patient taken back to ICU. Estimated Blood Loss 5 Urine Output 850 Drains No Packing No Pathology None sent Complications No immediate complications Condition Stable Disposition ICU [facility] Billing Surgery - Charge Forward: Surgery Billing
[2022-08-23] MEDS: ASPIRIN 325 MG TABLET FEED TUBE (15:00)
--- NOTE | 2022-08-23 15:18 | PC.NURSE ---
Patient arrived to ICU room 6 from OR at 1430. Bedside report of procedure given by ALEX Chen. Patient assessed and vital signs obtained. This RN to resume patient care.
--- NOTE | 2022-08-23 15:56 | WPDPN ---
Progress Note: A&P Assessment and Plan (1) Chest pain: Qualifiers: Chest pain type: unspecified Qualified Code(s): R07.9 - Chest pain, unspecified Code(s): R07.9 - Chest pain, unspecified Status: Acute Assessment and Plan: Monitor (2) Respiratory failure: Qualifiers: Chronicity: acute on chronic Respiratory failure complication: hypercapnia Qualified Code(s): J96.22 - Acute and chronic respiratory failure with hypercapnia Code(s): J96.90 - Respiratory failure, unspecified, unspecified whether with hypoxia or hypercapnia Status: Acute Assessment and Plan: Acute on chronic hypercapnic respiratory failure likely related to COPD, possible volume overload, possible pneumonia patient has cough, shortness of breath, leukocytosis -08/09: patient placed on BiPAP, repeat ABGs on BiPAP did not change that patient was more somnolent and not arousable -intubated on 08/10/2019 -intubated currently, managed per ICU -continue cefepime, azithromycin and vancomycin (08/09), will deescalate once cultures are resulted -08/09: MRSA screen positive -08/09: Blood negative x2 so far -08/09: Urine cultures negative 06/23/2022 interval history:? Patient with exacerbation of COPD hypercarbic respiratory failure remains intubated suspect patient may have pneumonia and being treated Cefepime and azithromycin, patient is off abx, on 08/16? patient self-extubated however was not able to breathe and patient was reintubated, patient awake? and follows commands, today again patient was given?weaning trial off ventilator was not able to sustain breathing on his own however patient was not able to tolerate and was continued to remains intubated,?patient unable to wean off the ventilator supervisor grain and yeast plants has ordered patient will have tract and PEG today patient had trach placed, and will transfer the patient to LTAC once a bed is available possibly tomorrow (3) COPD (chronic obstructive pulmonary disease): Qualifiers: COPD type: COPD with acute exacerbation Qualified Code(s): J44.1 - Chronic obstructive pulmonary disease with (acute) exacerbation Code(s): J44.9 - Chronic obstructive pulmonary disease, unspecified Status: Acute Assessment and Plan: Continue bronchodilators, steroids, antibiotics (4) Urinary tract infection: Qualifiers: Urinary tract infection type: acute cystitis Hematuria presence: without hematuria Qualified Code(s): N30.00 - Acute cystitis without hematuria Code(s): N39.0 - Urinary tract infection, site not specified Status: Acute Assessment and Plan: UA reflective of UTI -continue antibiotics as above -urine cultures negative (5) Afib: Qualifiers: Atrial fibrillation type: paroxysmal Qualified Code(s): I48.0 - Paroxysmal atrial fibrillation Code(s): I48.91 - Unspecified atrial fibrillation Status: Acute Assessment and Plan: Patient also has paroxysmal AFib, on apixaban at home -ordered metoprolol p.r.n. -continue apixaban -currently in sinus rhythm, rate controlled (6) CKD (chronic kidney disease) stage 3, GFR 30-59 ml/min: Code(s): N18.30 - Chronic kidney disease, stage 3 unspecified Status: Acute Assessment and Plan: Patient has history of chronic kidney disease stage 3 -continue to monitor urine output, renal function and electrolytes -creatinine on admission was 0.80, -05/06: decreased urine output since admission elevated creatinine, elevated lactic acid -patient given small IV fluid bolus and gentle hydration -creatinine improved this morning, lactic acid has resolved, 1.0 this morning (7) Chronic pain disorder: Code(s): G89.4 - Chronic pain syndrome Status: Acute Assessment and Plan: History of chronic pain syndrome on chronic opiates, this could be the 1 of the causes of hypercapnic respiratory failure (8) GERD (gastroesophageal re
[2022-08-23] MEDS: HYDROcodone/acetaminophen (*CRX) 10-325 MG TABLET 1 TAB PO ×2 (16:06→22:08)
[2022-08-23 17:21] LABS: Glucose Point of Care 150 mg/dl (65-105)
[2022-08-23] MEDS: fentaNYL CITRATE INJ (*CRX) 100 MCG/2 ML VIAL 50 MCG IV PUSH (18:25)
[2022-08-23] MEDS: METOPROLOL TARTRATE 50 MG TAB 100 MG FEED TUBE (20:15)
[2022-08-23] MEDS: QUEtiapine FUMARATE 25 MG TABLET 75 MG PO (20:15)
[2022-08-23 20:55] LABS: Glucose Point of Care 88 mg/dl (65-105)
[2022-08-24] VITALS (20 sets, daily range): BP systolic 102–172; BP diastolic 60–98; PULSE 85–132; RESP 18–27; TEMP 37.6–37.8; O2SAT 93–99
[2022-08-24] MEDS: METOCLOPRAMIDE HCL INJ 10 MG/2 ML VIAL IV PUSH ×3 (01:13→12:17)
[2022-08-24] MEDS: LORazepam INJ (*CRX) 2 MG/ML VIAL IV PUSH ×5 (01:13→12:54)
[2022-08-24] MEDS: LEVALBUTEROL NEB 1.25 MG/3 ML INHALATION ×2 (02:34→07:58)
[2022-08-24] MEDS: fentaNYL CITRATE INJ (*CRX) 100 MCG/2 ML VIAL 50 MCG IV PUSH (03:02)
[2022-08-24] MEDS: METOPROLOL TARTRATE INJ 5 MG/5 ML VIAL IV PUSH ×2 (03:37→09:06)
[2022-08-24] MEDS: HYDROcodone/acetaminophen (*CRX) 10-325 MG TABLET 1 TAB PO ×2 (04:21→10:33)
[2022-08-24] MEDS: CENTRAL LINE FLUSH 10 ML IV PUSH ×2 (05:06)
[2022-08-24 05:24] LABS: Hematocrit 29.6 % (42.0-52.0); Hemoglobin 8.5 g/dL (14.0-18.0); Mean Corpuscular HGB Conc 28.7 g/dl (32-36); Mean Corpuscular Hemoglobin 25.1 pg (26-34); Mean Corpuscular Volume 87.3 fl (80-100); Mean Platelet Volume 8.6 fl (7.4-10.4); Platelet Count Result 295 k/mm3 (150-375); Red Blood Count 3.39 M/mm3 (4.6-6.20); Red Cell Distribution Width 25.6 % (11.5-14.5); White Blood Count 9.2 K/mm3 (4.5-10.0)
[2022-08-24 05:33] LABS: Anion Gap 6 mmol/L (8-16); Blood Urea Nitrogen 20 mg/dL (9-20); Calcium 8.3 mg/dL (8.4-10.2); Carbon Dioxide 33 mmol/L (22-30); Chloride 106 mmol/L (98-107); Estimated CRCL calculation 69 ml/min; Estimated Glomerular Filt Rate > 60; Glucose 98 mg/dL (65-110); Magnesium 2.3 mg/dL (1.6-2.3); Phosphorus 3.4 mg/dL (2.5-4.5); Potassium 3.8 mmol/L (3.4-5.0); Sodium 145 mmol/L (137-145)
[2022-08-24 05:50] LABS: Alveolar/Arterial O2 Gradient 72.5 mmHg; Fractional Inspired Oxygen 28 %; HCO3 ABG 27.5 mEq/l (22.0-26.0); Oxygen Saturation ABG 94.4 % (95.0-100.0); Oxyhemoglobin 92.4 % THb (90.0-100.0); PCO2 ABG 46.3 mmHg (35.0-45.0); PO2 ABG 72.5 mmHg (80.0-100.0); PO2 FiO2 Ratio Arterial Blood 2.59 %; Total Hemoglobin 14.6 g/dL (12.0-18.0); pH ABG 7.392 (7.350-7.450)
[2022-08-24 05:51] LABS: Arterial Blood Gas PEEP 5 cmH2O; Arterial Blood Gas Tidal Volume 420 ml; Arterial Blood Gas Vent Mode CMV; Arterial Blood Gas Ventilator rate 18 /MIN; Device VENTILATOR; Modified Allen's Test Pass; Site Drawn RIGHT RADIAL
[2022-08-24 06:34] LABS: Glucose Point of Care 79 mg/dl (65-105)
[2022-08-24 06:34] LABS: Glucose Point of Care 95 mg/dl (65-105)
[2022-08-24] MEDS: BUDESONIDE RESPULE NEB 0.5 MG/2 ML AMP INHALATION (07:57)
[2022-08-24] MEDS: ASPIRIN 325 MG TABLET FEED TUBE (09:00)
[2022-08-24] MEDS: MINERAL OIL/WHITE PETROLATUM OINTMENT 1 APPLIC EACH EYE (09:09)
[2022-08-24] MEDS: PANTOPRAZOLE SODIUM IV 40 MG VIAL IV PUSH (09:09)
[2022-08-24] MEDS: methylPREDNISolone SOD SUCC 40 MG VIAL 20 MG IV PUSH (09:09)
[2022-08-24] MEDS: DOCUSATE SODIUM LIQ 100 MG/10 ML UDC PO (09:09)
--- NOTE | 2022-08-24 09:15 | WPDINTPN ---
Progress Note: A&P Assessment and Plan (1) Respiratory failure: Qualifiers: Chronicity: acute on chronic Respiratory failure complication: hypercapnia Qualified Code(s): J96.22 - Acute and chronic respiratory failure with hypercapnia Code(s): J96.90 - Respiratory failure, unspecified, unspecified whether with hypoxia or hypercapnia Status: Acute Assessment and Plan: Acute on chronic hypercapnic respiratory failure likely related to COPD, possible volume overload, possible pneumonia patient has cough, shortness of breath, leukocytosis -08/09: patient placed on BiPAP, repeat ABGs on BiPAP did not change that patient was more somnolent and not arousable -intubated on 08/10/2019 -currently on CMV mode of ventilation, peep of 5, 30% FiO2, adequate O2 sats -ABGs reviewed -chest x-ray reviewed -continue bronchodilators and budesonide -continue Solu-Medrol q.a.m. - status post 7 days course of cefepime, azithromycin. -08/09: MRSA screen was positive but sputum culture has been negative -08/09: Blood negative x2 so far -08/09: Urine cultures negative -08/10: Sputum culture negative so far 08/16/2022: Patient self-extubated, was re-intubated immediately as he was tachypneic, using abdominal muscles to breathe, hypoxia, and was in respiratory distress Since 08/18 patient has failed SBT due to high RSBI, tachypnea, increased work of breathing 08/23: Tracheostomy placed Off all sedation -on Seroquel, p.r.n. Ativan only, patient is awake, follows simple commands in all extremities, is calm (2) Chest pain: Qualifiers: Chest pain type: unspecified Qualified Code(s): R07.9 - Chest pain, unspecified Code(s): R07.9 - Chest pain, unspecified Status: Acute Assessment and Plan: Patient presented with chest pain at the outside hospital associated with shortness of breath, diaphoresis, nausea. -EKG at the outside hospital and at [facility] showed atrial flutter/fib with RVR -currently in sinus tachycardia -troponin negative x3. -off note patient had stress test in March 2019 that was unremarkable which was obtained from the ER note from the outside hospital -cardiology following the patient, -08/09 echocardiogram Summary ? 1. Technically challenging examination in this intubated patient. ? 2. Definity contrast injected to improve visualization. ? 3. Hyperdynamic appearing left ventricular systolic function with grade 1 diastolic noncompliance. ? 4. No significant valvular dysfunction identified. (3) COPD (chronic obstructive pulmonary disease): Qualifiers: COPD type: COPD with acute exacerbation Qualified Code(s): J44.1 - Chronic obstructive pulmonary disease with (acute) exacerbation Code(s): J44.9 - Chronic obstructive pulmonary disease, unspecified Status: Acute Assessment and Plan: On mechanical ventilation, status post steroids -continue bronchodilators (4) Urinary tract infection: Qualifiers: Urinary tract infection type: acute cystitis Hematuria presence: without hematuria Qualified Code(s): N30.00 - Acute cystitis without hematuria Code(s): N39.0 - Urinary tract infection, site not specified Status: Acute Assessment and Plan: UA reflective of UTI Completed course of antibiotics as above -urine cultures negative (5) Afib: Qualifiers: Atrial fibrillation type: paroxysmal Qualified Code(s): I48.0 - Paroxysmal atrial fibrillation Code(s): I48.91 - Unspecified atrial fibrillation Status: Acute Assessment and Plan: Patient also has paroxysmal AFib, on apixaban at home -ordered metoprolol p.r.n. -currently in sinus rhythm, rate controlled -08/12: hold apixaban as patient is anemic and dropped his hemoglobin to 7.0 -08/23 will restart aspirin (6) CKD (chronic kidney disease) stage 3, GFR 30-59 ml/min: Code(s): N18.30 - Chronic kidney disease, stage 3 unspecifi
[2022-08-24] MEDS: TOLNAFTATE 1% POWDER 45 GM BTL 1 APPLIC TOPICAL (09:20)
[2022-08-24] MEDS: QUEtiapine FUMARATE 25 MG TABLET 75 MG PO (09:20)
[2022-08-24 09:22] LABS: Glucose Point of Care 102 mg/dl (65-105)
[2022-08-24] MEDS: METOPROLOL TARTRATE 50 MG TAB 100 MG FEED TUBE (09:23)
--- NOTE | 2022-08-24 11:07 | PM.DS ---
DS: Admitting Diagnosis Discharge Date 08/24/2022 Admitting Diagnosis Shortness of breath DS: Discharge Diagnosis Discharge Diagnosis (1) Chest pain: Qualifiers: Chest pain type: unspecified Qualified Code(s): R07.9 - Chest pain, unspecified Code(s): R07.9 - Chest pain, unspecified Status: Acute Assessment and Plan: Monitor (2) Respiratory failure: Qualifiers: Chronicity: acute on chronic Respiratory failure complication: hypercapnia Qualified Code(s): J96.22 - Acute and chronic respiratory failure with hypercapnia Code(s): J96.90 - Respiratory failure, unspecified, unspecified whether with hypoxia or hypercapnia Status: Acute Assessment and Plan: Acute on chronic hypercapnic respiratory failure likely related to COPD, possible volume overload, possible pneumonia patient has cough, shortness of breath, leukocytosis -08/09: patient placed on BiPAP, repeat ABGs on BiPAP did not change that patient was more somnolent and not arousable -intubated on 08/10/2019 -intubated currently, managed per ICU -continue cefepime, azithromycin and vancomycin (08/09), will deescalate once cultures are resulted -08/09: MRSA screen positive -08/09: Blood negative x2 so far -08/09: Urine cultures negative 06/23/2022 interval history:? Patient with exacerbation of COPD hypercarbic respiratory failure remains intubated suspect patient may have pneumonia and being treated Cefepime and azithromycin, patient is off abx, on 08/16? patient self-extubated however was not able to breathe and patient was reintubated, patient awake? and follows commands, today again patient was given?weaning trial off ventilator was not able to sustain breathing on his own however patient was not able to tolerate and was continued to remains intubated,?patient unable to wean off the ventilator stunt woman has ordered patient will have tract and PEG today patient had trach placed, and will transfer the patient to LTAC once a bed is available possibly tomorrow (3) COPD (chronic obstructive pulmonary disease): Qualifiers: COPD type: COPD with acute exacerbation Qualified Code(s): J44.1 - Chronic obstructive pulmonary disease with (acute) exacerbation Code(s): J44.9 - Chronic obstructive pulmonary disease, unspecified Status: Acute Assessment and Plan: Continue bronchodilators, steroids, antibiotics (4) Urinary tract infection: Qualifiers: Hematuria presence: without hematuria Urinary tract infection type: acute cystitis Qualified Code(s): N30.00 - Acute cystitis without hematuria Code(s): N39.0 - Urinary tract infection, site not specified Status: Acute Assessment and Plan: UA reflective of UTI -continue antibiotics as above -urine cultures negative (5) Afib: Qualifiers: Atrial fibrillation type: paroxysmal Qualified Code(s): I48.0 - Paroxysmal atrial fibrillation Code(s): I48.91 - Unspecified atrial fibrillation Status: Acute Assessment and Plan: Patient also has paroxysmal AFib, on apixaban at home -ordered metoprolol p.r.n. -continue apixaban -currently in sinus rhythm, rate controlled (6) CKD (chronic kidney disease) stage 3, GFR 30-59 ml/min: Code(s): N18.30 - Chronic kidney disease, stage 3 unspecified Status: Acute Assessment and Plan: Patient has history of chronic kidney disease stage 3 -continue to monitor urine output, renal function and electrolytes -creatinine on admission was 0.80, -/06: decreased urine output since admission elevated creatinine, elevated lactic acid -patient given small IV fluid bolus and gentle hydration -creatinine improved this morning, lactic acid has resolved, 1.0 this morning (7) Chronic pain disorder: Code(s): G89.4 - Chronic pain syndrome Status: Acute Assessment and Plan: History of chronic pain syndrome on chronic opiat
--- NOTE | 2022-08-24 11:29 | PC.NURSE ---
Report given to ALEX Souza with [facility] facility. All questions answered and plan of care reviewed. Patient to transfer to [place] per MD discharge plan.
[2022-08-24 12:33] LABS: Glucose Point of Care 158 mg/dl (65-105)
== END 2022-08-24 13:13 | DRG 4 ==
LOC: ANH3MEDSUR 11:13 → ANHIMU 11:18 → ANHICU 11:42
PROVIDERS: Internal Medicine; Internal Medicine Gastroenterology; Otolaryngology; Admitting Provider Chiropractor; PCP Family Medicine; Visit Provider Family Medicine
PROC: 0DH63UZ Insertion of Feeding Device into Stomach, Percutaneous Approach (ICD-10-PCS; CPT 43246; principal; 2022-08-22 14:15)
PROC: 0B110F4 Bypass Trachea to Cutaneous with Tracheostomy Device, Open Approach (ICD-10-PCS; principal; 2022-08-23 13:30)
DX: J44.0 Chronic obstructive pulmonary disease with (acute) lower respiratory infection (principal); J18.9 Pneumonia, unspecified organism; J96.21 Acute and chronic respiratory failure with hypoxia; J96.22 Acute and chronic respiratory failure with hypercapnia; N39.0 Urinary tract infection, site not specified; J44.1 Chronic obstructive pulmonary disease with (acute) exacerbation; I48.0 Paroxysmal atrial fibrillation; N18.30 Chronic kidney disease, stage 3 unspecified; Z20.822 Contact with and (suspected) exposure to COVID-19; D63.1 Anemia in chronic kidney disease; D50.9 Iron deficiency anemia, unspecified; G89.4 Chronic pain syndrome; R13.19 Other dysphagia; K21.9 Gastro-esophageal reflux disease without esophagitis; F41.1 Generalized anxiety disorder; R14.0 Abdominal distension (gaseous); Z22.322 Carrier or suspected carrier of Methicillin resistant Staphylococcus aureus; Z87.891 Personal history of nicotine dependence; Z86.73 Personal history of transient ischemic attack (TIA), and cerebral infarction without residual deficits; Z79.01 Long term (current) use of anticoagulants
CPT/HCPCS: 31500; 36415; 36430; 36569; 36600; 43246; 70450; 71045; 74019; 80048; 80053; 80202; 81001; 82140; 82274; 82375; 82607; 82746; 82805; 82948; 83010; 83050; 83540; 83550; 83605; 83615; 83735; 83880; 84100; 84145; 84478; 84484; 85014; 85018; 85025; 85027; 85610; 85730; 86850; 86900; 86901; 86923; 87040; 87070; 87081; 87086; 87088; 87205; 87636; 93005; 94002; 94003; 94640; 94660; A9270; C1751; C8929; C9113; J0360; J0456; J0613; J0690; J0692; J1652; J1756; J1815; J1940; J2060; J2250; J2704; J2765; J2920; J2930; J3010; J3370; J7030; J7040; J7050; J7060; P9016; Q9957